=== PATIENT | male | born 1940 | race Caucasian/White ===

== ENCOUNTER → 2016-04-22 | Outpatient (CLI) | payer MEDICARE, OTHER | LOC: RAD 07:41 | PROVIDERS: ATTEND Specialist | DX: C61 Malignant neoplasm of prostate (principal) | CPT/HCPCS: 78306; A9503; Q9969 ==

== ENCOUNTER → 2016-04-25 | Outpatient (CLI) | payer MEDICARE, OTHER | LOC: RAD 07:57 | PROVIDERS: ATTEND Specialist | DX: C61 Malignant neoplasm of prostate (principal) | CPT/HCPCS: 71260; 74177 ==

== ENCOUNTER → 2016-07-24 | Outpatient (CLI) | payer MEDICARE, OTHER ==
[2016-07-24 11:14] LABS: ABSOLUTE EOSINOPHILS # (AUTO) 0.1 10^3/uL (0.0-0.6); ABSOLUTE LYMPHOCYTES (AUTO) 0.6 10^3/uL (0.5-4.7); ABSOLUTE MONOCYTES (AUTO) 0.8 10^3/uL (0.1-1.4); ABSOLUTE NEUT (AUTO) 3.4 10^3/uL (1.7-8.2); EOSINOPHILS % (AUTO) 2.6 % (0-6); HEMATOCRIT 39.9 % (37.9-51.0); HEMOGLOBIN 13.3 g/dL (13.5-17.0); LYMPHOCYTES % (AUTO) 12.1 % (13-45); MEAN CORPUSCULAR HGB CONC 33.4 g/dL (32.0-36.0); MEAN CORPUSCULAR VOLUME 90 fl (80-97); MONOCYTES % (AUTO) 15.3 % (3-13); RED BLOOD COUNT 4.44 10^6/uL (4.35-5.55); RED CELL DISTRIBUTION WIDTH 14.2 % (11.5-14.0); WHITE BLOOD COUNT 4.9 10^3/uL (4.0-10.5)
== END ==
LOC: OD 10:49
PROVIDERS: ATTEND Radiology Radiation Oncology
DX: C61 Malignant neoplasm of prostate (principal); C79.51 Secondary malignant neoplasm of bone; R97.20 Elevated prostate specific antigen [PSA]
CPT/HCPCS: 36415; 85025

== ENCOUNTER → 2016-07-31 | Outpatient (CLI) | payer MEDICARE, OTHER | LOC: RAD 08:05 | PROVIDERS: ATTEND Radiology Radiation Oncology | DX: C61 Malignant neoplasm of prostate (principal); C79.51 Secondary malignant neoplasm of bone | CPT/HCPCS: 79101; A9606 ==

== ENCOUNTER → 2016-08-07 | Outpatient (CLI) | payer MEDICARE, OTHER ==
[2016-08-07 15:02] LABS: ABSOLUTE EOSINOPHILS # (AUTO) 0.2 10^3/uL (0.0-0.6); ABSOLUTE LYMPHOCYTES (AUTO) 0.5 10^3/uL (0.5-4.7); ABSOLUTE MONOCYTES (AUTO) 0.6 10^3/uL (0.1-1.4); ABSOLUTE NEUT (AUTO) 3.8 10^3/uL (1.7-8.2); BASOPHILS % (AUTO) 0.5 % (0-2); EOSINOPHILS % (AUTO) 3.4 % (0-6); HEMATOCRIT 36.5 % (37.9-51.0); HEMOGLOBIN 12.2 g/dL (13.5-17.0); HGB HCT DIFFERENCE 0.1; LYMPHOCYTES % (AUTO) 10.1 % (13-45); MEAN CORPUSCULAR HEMOGLOBIN 30.1 pg (27.0-33.4); MEAN CORPUSCULAR HGB CONC 33.6 g/dL (32.0-36.0); MEAN CORPUSCULAR VOLUME 90 fl (80-97); RED BLOOD COUNT 4.06 10^6/uL (4.35-5.55); RED CELL DISTRIBUTION WIDTH 14.1 % (11.5-14.0); WHITE BLOOD COUNT 5.1 10^3/uL (4.0-10.5)
== END ==
LOC: OD 14:12
PROVIDERS: ATTEND Radiology Radiation Oncology
DX: C61 Malignant neoplasm of prostate (principal); R97.20 Elevated prostate specific antigen [PSA]; C79.51 Secondary malignant neoplasm of bone
CPT/HCPCS: 36415; 85025

== ENCOUNTER → 2016-08-21 | Outpatient (CLI) | payer MEDICARE, OTHER ==
[2016-08-21 13:30] LABS: ABSOLUTE BASOPHILS # (AUTO) 0.1 10^3/uL (0.0-0.2); ABSOLUTE EOSINOPHILS # (AUTO) 0.1 10^3/uL (0.0-0.6); ABSOLUTE LYMPHOCYTES (AUTO) 0.6 10^3/uL (0.5-4.7); ABSOLUTE MONOCYTES (AUTO) 0.6 10^3/uL (0.1-1.4); ABSOLUTE NEUT (AUTO) 2.9 10^3/uL (1.7-8.2); BASOPHILS % (AUTO) 1.2 % (0-2); HEMOGLOBIN 12.6 g/dL (13.5-17.0); HGB HCT DIFFERENCE 0.8; LYMPHOCYTES % (AUTO) 13.4 % (13-45); MEAN CORPUSCULAR HEMOGLOBIN 30.3 pg (27.0-33.4); MEAN CORPUSCULAR HGB CONC 34.1 g/dL (32.0-36.0); MEAN CORPUSCULAR VOLUME 89 fl (80-97); RED BLOOD COUNT 4.18 10^6/uL (4.35-5.55); SEGMENTED NEUTROPHILS % (AUTO) 67.4 % (42-78); WHITE BLOOD COUNT 4.2 10^3/uL (4.0-10.5)
== END ==
LOC: OD 12:18
PROVIDERS: ATTEND Radiology Radiation Oncology
DX: C61 Malignant neoplasm of prostate (principal); R97.20 Elevated prostate specific antigen [PSA]; C79.51 Secondary malignant neoplasm of bone
CPT/HCPCS: 36415; 85025

== ENCOUNTER → 2016-08-28 | Outpatient (CLI) | payer MEDICARE, OTHER | LOC: RAD 07:55 | PROVIDERS: ATTEND Radiology Radiation Oncology | DX: C79.51 Secondary malignant neoplasm of bone (principal); C61 Malignant neoplasm of prostate | CPT/HCPCS: 79101; A9606 ==

== ENCOUNTER → 2016-09-04 | Outpatient (CLI) | payer MEDICARE, OTHER ==
[2016-09-04 10:38] LABS: ABSOLUTE EOSINOPHILS # (AUTO) 0.1 10^3/uL (0.0-0.6); ABSOLUTE LYMPHOCYTES (AUTO) 0.5 10^3/uL (0.5-4.7); ABSOLUTE MONOCYTES (AUTO) 0.5 10^3/uL (0.1-1.4); ABSOLUTE NEUT (AUTO) 2.4 10^3/uL (1.7-8.2); BASOPHILS % (AUTO) 0.8 % (0-2); EOSINOPHILS % (AUTO) 3.7 % (0-6); HEMATOCRIT 39.5 % (37.9-51.0); HEMOGLOBIN 12.9 g/dL (13.5-17.0); HGB HCT DIFFERENCE -0.8; LYMPHOCYTES % (AUTO) 15.4 % (13-45); MEAN CORPUSCULAR HEMOGLOBIN 29.9 pg (27.0-33.4); MEAN CORPUSCULAR HGB CONC 32.8 g/dL (32.0-36.0); MEAN CORPUSCULAR VOLUME 91 fl (80-97); MONOCYTES % (AUTO) 13.3 % (3-13); RED BLOOD COUNT 4.33 10^6/uL (4.35-5.55); RED CELL DISTRIBUTION WIDTH 14.6 % (11.5-14.0); SEGMENTED NEUTROPHILS % (AUTO) 66.8 % (42-78); WHITE BLOOD COUNT 3.5 10^3/uL (4.0-10.5)
== END ==
LOC: OD 09:34
PROVIDERS: ATTEND Radiology Radiation Oncology
DX: C61 Malignant neoplasm of prostate (principal); C79.51 Secondary malignant neoplasm of bone; R97.20 Elevated prostate specific antigen [PSA]
CPT/HCPCS: 36415; 85025

== ENCOUNTER → 2016-09-18 | Outpatient (CLI) | payer MEDICARE, OTHER ==
[2016-09-18 11:18] LABS: ABSOLUTE BASOPHILS # (AUTO) 0.1 10^3/uL (0.0-0.2); ABSOLUTE EOSINOPHILS # (AUTO) 0.1 10^3/uL (0.0-0.6); ABSOLUTE LYMPHOCYTES (AUTO) 0.6 10^3/uL (0.5-4.7); ABSOLUTE MONOCYTES (AUTO) 0.5 10^3/uL (0.1-1.4); BASOPHILS % (AUTO) 1.2 % (0-2); EOSINOPHILS % (AUTO) 2.3 % (0-6); HEMATOCRIT 41.5 % (37.9-51.0); HEMOGLOBIN 13.8 g/dL (13.5-17.0); HGB HCT DIFFERENCE -0.1; LYMPHOCYTES % (AUTO) 13.7 % (13-45); MEAN CORPUSCULAR HEMOGLOBIN 30.2 pg (27.0-33.4); MEAN CORPUSCULAR HGB CONC 33.2 g/dL (32.0-36.0); MEAN CORPUSCULAR VOLUME 91 fl (80-97); MONOCYTES % (AUTO) 12.3 % (3-13); RED BLOOD COUNT 4.57 10^6/uL (4.35-5.55); RED CELL DISTRIBUTION WIDTH 14.3 % (11.5-14.0); SEGMENTED NEUTROPHILS % (AUTO) 70.5 % (42-78); WHITE BLOOD COUNT 4.3 10^3/uL (4.0-10.5)
== END ==
LOC: OD 09:59
PROVIDERS: ATTEND Radiology Radiation Oncology
DX: C61 Malignant neoplasm of prostate (principal); R97.20 Elevated prostate specific antigen [PSA]; C79.51 Secondary malignant neoplasm of bone
CPT/HCPCS: 36415; 85025

== ENCOUNTER → 2016-09-25 | Outpatient (CLI) | payer MEDICARE, OTHER | LOC: RAD 07:51 | PROVIDERS: ATTEND Radiology Radiation Oncology | DX: C79.51 Secondary malignant neoplasm of bone (principal); C61 Malignant neoplasm of prostate | CPT/HCPCS: 79101; A9606 ==

== ENCOUNTER → 2016-10-02 | Outpatient (CLI) | payer MEDICARE, OTHER ==
[2016-10-02 10:20] LABS: ABSOLUTE EOSINOPHILS # (AUTO) 0.1 10^3/uL (0.0-0.6); ABSOLUTE LYMPHOCYTES (AUTO) 0.5 10^3/uL (0.5-4.7); ABSOLUTE MONOCYTES (AUTO) 0.6 10^3/uL (0.1-1.4); ABSOLUTE NEUT (AUTO) 2.1 10^3/uL (1.7-8.2); EOSINOPHILS % (AUTO) 2.2 % (0-6); HEMATOCRIT 37.7 % (37.9-51.0); HEMOGLOBIN 12.3 g/dL (13.5-17.0); HGB HCT DIFFERENCE -0.8; LYMPHOCYTES % (AUTO) 16.4 % (13-45); MEAN CORPUSCULAR HGB CONC 32.7 g/dL (32.0-36.0); MEAN CORPUSCULAR VOLUME 92 fl (80-97); MONOCYTES % (AUTO) 16.8 % (3-13); RED BLOOD COUNT 4.11 10^6/uL (4.35-5.55); RED CELL DISTRIBUTION WIDTH 14.3 % (11.5-14.0); SEGMENTED NEUTROPHILS % (AUTO) 63.6 % (42-78); WHITE BLOOD COUNT 3.3 10^3/uL (4.0-10.5)
== END ==
LOC: OD 09:39
PROVIDERS: ATTEND Radiology Radiation Oncology
DX: C61 Malignant neoplasm of prostate (principal); R97.20 Elevated prostate specific antigen [PSA]; C79.51 Secondary malignant neoplasm of bone
CPT/HCPCS: 36415; 85025

== ENCOUNTER → 2016-10-09 | Outpatient (CLI) | payer MEDICARE, OTHER ==
[2016-10-09 09:26] LABS: ABSOLUTE EOSINOPHILS # (AUTO) 0.1 10^3/uL (0.0-0.6); ABSOLUTE LYMPHOCYTES (AUTO) 0.5 10^3/uL (0.5-4.7); ABSOLUTE MONOCYTES (AUTO) 0.5 10^3/uL (0.1-1.4); ABSOLUTE NEUT (AUTO) 1.9 10^3/uL (1.7-8.2); BASOPHILS % (AUTO) 1.3 % (0-2); EOSINOPHILS % (AUTO) 4.8 % (0-6); HEMATOCRIT 40.9 % (37.9-51.0); HEMOGLOBIN 13.5 g/dL (13.5-17.0); HGB HCT DIFFERENCE -0.4; MEAN CORPUSCULAR HEMOGLOBIN 30.4 pg (27.0-33.4); MEAN CORPUSCULAR HGB CONC 33.1 g/dL (32.0-36.0); MEAN CORPUSCULAR VOLUME 92 fl (80-97); RED BLOOD COUNT 4.44 10^6/uL (4.35-5.55); RED CELL DISTRIBUTION WIDTH 14.5 % (11.5-14.0); SEGMENTED NEUTROPHILS % (AUTO) 59.9 % (42-78); WHITE BLOOD COUNT 3.1 10^3/uL (4.0-10.5)
== END ==
LOC: OD 08:29
PROVIDERS: ATTEND Radiology Radiation Oncology
DX: C61 Malignant neoplasm of prostate (principal); R97.20 Elevated prostate specific antigen [PSA]; C79.51 Secondary malignant neoplasm of bone
CPT/HCPCS: 36415; 85025

== ENCOUNTER → 2016-10-16 | Outpatient (CLI) | payer MEDICARE, OTHER ==
[2016-10-16 09:42] LABS: ABSOLUTE EOSINOPHILS # (AUTO) 0.2 10^3/uL (0.0-0.6); ABSOLUTE LYMPHOCYTES (AUTO) 0.5 10^3/uL (0.5-4.7); ABSOLUTE MONOCYTES (AUTO) 0.6 10^3/uL (0.1-1.4); ABSOLUTE NEUT (AUTO) 2.8 10^3/uL (1.7-8.2); BASOPHILS % (AUTO) 1.2 % (0-2); EOSINOPHILS % (AUTO) 3.8 % (0-6); HEMATOCRIT 36.5 % (37.9-51.0); HEMOGLOBIN 12.5 g/dL (13.5-17.0); LYMPHOCYTES % (AUTO) 12.8 % (13-45); MEAN CORPUSCULAR HGB CONC 34.2 g/dL (32.0-36.0); MEAN CORPUSCULAR VOLUME 91 fl (80-97); MONOCYTES % (AUTO) 14.4 % (3-13); RED BLOOD COUNT 4.02 10^6/uL (4.35-5.55); RED CELL DISTRIBUTION WIDTH 14.6 % (11.5-14.0); SEGMENTED NEUTROPHILS % (AUTO) 67.8 % (42-78); WHITE BLOOD COUNT 4.2 10^3/uL (4.0-10.5)
== END ==
LOC: OD 08:48
PROVIDERS: ATTEND Radiology Radiation Oncology
DX: C61 Malignant neoplasm of prostate (principal); C79.51 Secondary malignant neoplasm of bone; R97.20 Elevated prostate specific antigen [PSA]
CPT/HCPCS: 36415; 85025

== ENCOUNTER → 2016-10-23 | Outpatient (CLI) | payer MEDICARE, OTHER | LOC: RAD 07:45 | PROVIDERS: ATTEND Radiology Radiation Oncology | DX: C79.51 Secondary malignant neoplasm of bone (principal); C61 Malignant neoplasm of prostate | CPT/HCPCS: 79101; A9606 ==

== ENCOUNTER → 2016-10-30 | Outpatient (CLI) | payer MEDICARE, OTHER ==
[2016-10-30 10:08] LABS: ABSOLUTE EOSINOPHILS # (AUTO) 0.2 10^3/uL (0.0-0.6); ABSOLUTE LYMPHOCYTES (AUTO) 0.6 10^3/uL (0.5-4.7); ABSOLUTE MONOCYTES (AUTO) 0.5 10^3/uL (0.1-1.4); ABSOLUTE NEUT (AUTO) 3.1 10^3/uL (1.7-8.2); EOSINOPHILS % (AUTO) 3.5 % (0-6); HEMATOCRIT 38.2 % (37.9-51.0); HEMOGLOBIN 12.6 g/dL (13.5-17.0); HGB HCT DIFFERENCE -0.4; LYMPHOCYTES % (AUTO) 12.9 % (13-45); MEAN CORPUSCULAR HEMOGLOBIN 30.5 pg (27.0-33.4); MEAN CORPUSCULAR HGB CONC 33.1 g/dL (32.0-36.0); MEAN CORPUSCULAR VOLUME 92 fl (80-97); MONOCYTES % (AUTO) 12.1 % (3-13); RED BLOOD COUNT 4.14 10^6/uL (4.35-5.55); RED CELL DISTRIBUTION WIDTH 14.8 % (11.5-14.0); SEGMENTED NEUTROPHILS % (AUTO) 70.5 % (42-78); WHITE BLOOD COUNT 4.5 10^3/uL (4.0-10.5)
== END ==
LOC: OD 09:13
PROVIDERS: ATTEND Radiology Radiation Oncology
DX: C61 Malignant neoplasm of prostate (principal); R97.20 Elevated prostate specific antigen [PSA]; C79.51 Secondary malignant neoplasm of bone
CPT/HCPCS: 36415; 85025

== ENCOUNTER → 2016-11-13 | Outpatient (CLI) | payer MEDICARE, OTHER ==
[2016-11-13 09:38] LABS: ABSOLUTE BASOPHILS # (AUTO) 0.1 10^3/uL (0.0-0.2); ABSOLUTE EOSINOPHILS # (AUTO) 0.1 10^3/uL (0.0-0.6); ABSOLUTE LYMPHOCYTES (AUTO) 0.6 10^3/uL (0.5-4.7); ABSOLUTE MONOCYTES (AUTO) 0.6 10^3/uL (0.1-1.4); ABSOLUTE NEUT (AUTO) 2.7 10^3/uL (1.7-8.2); BASOPHILS % (AUTO) 1.2 % (0-2); EOSINOPHILS % (AUTO) 3.1 % (0-6); HEMATOCRIT 35.7 % (37.9-51.0); HEMOGLOBIN 12.1 g/dL (13.5-17.0); HGB HCT DIFFERENCE 0.6; LYMPHOCYTES % (AUTO) 15.2 % (13-45); MEAN CORPUSCULAR HEMOGLOBIN 31.2 pg (27.0-33.4); MEAN CORPUSCULAR HGB CONC 33.8 g/dL (32.0-36.0); MEAN CORPUSCULAR VOLUME 93 fl (80-97); MONOCYTES % (AUTO) 15.1 % (3-13); RED BLOOD COUNT 3.87 10^6/uL (4.35-5.55); RED CELL DISTRIBUTION WIDTH 14.9 % (11.5-14.0); SEGMENTED NEUTROPHILS % (AUTO) 65.4 % (42-78); WHITE BLOOD COUNT 4.2 10^3/uL (4.0-10.5)
== END ==
LOC: OD 08:56
PROVIDERS: ATTEND Radiology Radiation Oncology
DX: C61 Malignant neoplasm of prostate (principal); R97.20 Elevated prostate specific antigen [PSA]; C79.51 Secondary malignant neoplasm of bone
CPT/HCPCS: 36415; 85025

== ENCOUNTER → 2016-11-20 | Outpatient (CLI) | payer MEDICARE, OTHER | LOC: RAD 07:56 | PROVIDERS: ATTEND Radiology Radiation Oncology | DX: C79.51 Secondary malignant neoplasm of bone (principal); C61 Malignant neoplasm of prostate | CPT/HCPCS: 79101; A9606 ==

== ENCOUNTER → 2016-11-27 | Outpatient (CLI) | payer MEDICARE, OTHER ==
[2016-11-27 10:41] LABS: ABSOLUTE EOSINOPHILS # (AUTO) 0.1 10^3/uL (0.0-0.6); ABSOLUTE LYMPHOCYTES (AUTO) 0.5 10^3/uL (0.5-4.7); ABSOLUTE MONOCYTES (AUTO) 0.6 10^3/uL (0.1-1.4); ABSOLUTE NEUT (AUTO) 2.9 10^3/uL (1.7-8.2); EOSINOPHILS % (AUTO) 2.3 % (0-6); HEMATOCRIT 35.9 % (37.9-51.0); HEMOGLOBIN 12.3 g/dL (13.5-17.0); LYMPHOCYTES % (AUTO) 12.9 % (13-45); MEAN CORPUSCULAR HEMOGLOBIN 31.8 pg (27.0-33.4); MEAN CORPUSCULAR HGB CONC 34.3 g/dL (32.0-36.0); MEAN CORPUSCULAR VOLUME 93 fl (80-97); MONOCYTES % (AUTO) 14.7 % (3-13); RED BLOOD COUNT 3.88 10^6/uL (4.35-5.55); SEGMENTED NEUTROPHILS % (AUTO) 69.1 % (42-78); WHITE BLOOD COUNT 4.2 10^3/uL (4.0-10.5)
== END ==
LOC: OD 09:33
PROVIDERS: ATTEND Radiology Radiation Oncology
DX: C61 Malignant neoplasm of prostate (principal); C79.51 Secondary malignant neoplasm of bone; R97.20 Elevated prostate specific antigen [PSA]
CPT/HCPCS: 36415; 85025

== ENCOUNTER → 2016-12-11 | Outpatient (CLI) | payer MEDICARE, OTHER ==
[2016-12-11 10:23] LABS: ABSOLUTE EOSINOPHILS # (AUTO) 0.1 10^3/uL (0.0-0.6); ABSOLUTE LYMPHOCYTES (AUTO) 0.3 10^3/uL (0.5-4.7); ABSOLUTE MONOCYTES (AUTO) 0.5 10^3/uL (0.1-1.4); ABSOLUTE NEUT (AUTO) 1.9 10^3/uL (1.7-8.2); BASOPHILS % (AUTO) 1.2 % (0-2); EOSINOPHILS % (AUTO) 3.6 % (0-6); HEMATOCRIT 36.4 % (37.9-51.0); HEMOGLOBIN 12.2 g/dL (13.5-17.0); HGB HCT DIFFERENCE 0.2; LYMPHOCYTES % (AUTO) 10.9 % (13-45); MEAN CORPUSCULAR HEMOGLOBIN 31.7 pg (27.0-33.4); MEAN CORPUSCULAR HGB CONC 33.6 g/dL (32.0-36.0); MEAN CORPUSCULAR VOLUME 94 fl (80-97); MONOCYTES % (AUTO) 17.2 % (3-13); RED BLOOD COUNT 3.86 10^6/uL (4.35-5.55); RED CELL DISTRIBUTION WIDTH 15.2 % (11.5-14.0); SEGMENTED NEUTROPHILS % (AUTO) 67.1 % (42-78); WHITE BLOOD COUNT 2.8 10^3/uL (4.0-10.5)
== END ==
LOC: OD 08:58
PROVIDERS: ATTEND Radiology Radiation Oncology
DX: C61 Malignant neoplasm of prostate (principal); C79.51 Secondary malignant neoplasm of bone; R97.20 Elevated prostate specific antigen [PSA]
CPT/HCPCS: 36415; 85025

== ENCOUNTER → 2016-12-18 | Outpatient (CLI) | payer MEDICARE, OTHER | LOC: RAD 07:47 | PROVIDERS: ATTEND Radiology Radiation Oncology | DX: C61 Malignant neoplasm of prostate (principal); C79.51 Secondary malignant neoplasm of bone | CPT/HCPCS: 79101; A9606 ==

== ENCOUNTER → 2016-12-25 | Outpatient (CLI) | payer MEDICARE, OTHER ==
[2016-12-25 11:15] LABS: ABSOLUTE EOSINOPHILS # (AUTO) 0.1 10^3/uL (0.0-0.6); ABSOLUTE LYMPHOCYTES (AUTO) 0.3 10^3/uL (0.5-4.7); ABSOLUTE MONOCYTES (AUTO) 0.5 10^3/uL (0.1-1.4); ABSOLUTE NEUT (AUTO) 2.5 10^3/uL (1.7-8.2); BASOPHILS % (AUTO) 0.7 % (0-2); EOSINOPHILS % (AUTO) 2.2 % (0-6); HEMATOCRIT 35.3 % (37.9-51.0); HEMOGLOBIN 11.8 g/dL (13.5-17.0); HGB HCT DIFFERENCE 0.1; LYMPHOCYTES % (AUTO) 9.6 % (13-45); MEAN CORPUSCULAR HEMOGLOBIN 31.6 pg (27.0-33.4); MEAN CORPUSCULAR HGB CONC 33.3 g/dL (32.0-36.0); MEAN CORPUSCULAR VOLUME 95 fl (80-97); MONOCYTES % (AUTO) 13.4 % (3-13); RED BLOOD COUNT 3.72 10^6/uL (4.35-5.55); RED CELL DISTRIBUTION WIDTH 14.8 % (11.5-14.0); SEGMENTED NEUTROPHILS % (AUTO) 74.1 % (42-78); WHITE BLOOD COUNT 3.4 10^3/uL (4.0-10.5)
== END ==
LOC: OD 09:49
PROVIDERS: ATTEND Radiology Radiation Oncology
DX: C61 Malignant neoplasm of prostate (principal); C79.51 Secondary malignant neoplasm of bone; R97.20 Elevated prostate specific antigen [PSA]
CPT/HCPCS: 36415; 85025

== ENCOUNTER → 2017-01-08 | Outpatient (CLI) | payer MEDICARE, OTHER ==
[2017-01-08 10:21] LABS: ABSOLUTE EOSINOPHILS # (AUTO) 0.1 10^3/uL (0.0-0.6); ABSOLUTE LYMPHOCYTES (AUTO) 0.4 10^3/uL (0.5-4.7); ABSOLUTE MONOCYTES (AUTO) 0.5 10^3/uL (0.1-1.4); ABSOLUTE NEUT (AUTO) 2.3 10^3/uL (1.7-8.2); BASOPHILS % (AUTO) 0.9 % (0-2); EOSINOPHILS % (AUTO) 2.5 % (0-6); HEMATOCRIT 36.7 % (37.9-51.0); HEMOGLOBIN 12.4 g/dL (13.5-17.0); HGB HCT DIFFERENCE 0.5; LYMPHOCYTES % (AUTO) 12.2 % (13-45); MEAN CORPUSCULAR HEMOGLOBIN 31.5 pg (27.0-33.4); MEAN CORPUSCULAR HGB CONC 33.9 g/dL (32.0-36.0); MEAN CORPUSCULAR VOLUME 93 fl (80-97); MONOCYTES % (AUTO) 14.8 % (3-13); RED BLOOD COUNT 3.95 10^6/uL (4.35-5.55); RED CELL DISTRIBUTION WIDTH 14.1 % (11.5-14.0); SEGMENTED NEUTROPHILS % (AUTO) 69.6 % (42-78); WHITE BLOOD COUNT 3.3 10^3/uL (4.0-10.5)
== END ==
LOC: OD 09:40
PROVIDERS: ATTEND Radiology Radiation Oncology
DX: C61 Malignant neoplasm of prostate (principal); C79.51 Secondary malignant neoplasm of bone; R97.20 Elevated prostate specific antigen [PSA]
CPT/HCPCS: 36415; 85025

== ENCOUNTER → 2017-01-22 | Outpatient (CLI) | payer MEDICARE, OTHER ==
[2017-01-22 15:37] LABS: ABSOLUTE LYMPHOCYTES (AUTO) 0.3 10^3/uL (0.5-4.7); ABSOLUTE MONOCYTES (AUTO) 0.4 10^3/uL (0.1-1.4); ABSOLUTE NEUT (AUTO) 2.7 10^3/uL (1.7-8.2); EOSINOPHILS % (AUTO) 1.4 % (0-6); HEMATOCRIT 34.1 % (37.9-51.0); HGB HCT DIFFERENCE 1.9; LYMPHOCYTES % (AUTO) 7.7 % (13-45); MEAN CORPUSCULAR HEMOGLOBIN 32.7 pg (27.0-33.4); MEAN CORPUSCULAR HGB CONC 35.2 g/dL (32.0-36.0); MEAN CORPUSCULAR VOLUME 93 fl (80-97); MONOCYTES % (AUTO) 10.8 % (3-13); RED BLOOD COUNT 3.67 10^6/uL (4.35-5.55); RED CELL DISTRIBUTION WIDTH 14.1 % (11.5-14.0); SEGMENTED NEUTROPHILS % (AUTO) 79.1 % (42-78); WHITE BLOOD COUNT 3.4 10^3/uL (4.0-10.5)
== END ==
LOC: OD 14:06
PROVIDERS: ATTEND Radiology Radiation Oncology
DX: C61 Malignant neoplasm of prostate (principal); R97.20 Elevated prostate specific antigen [PSA]; C79.51 Secondary malignant neoplasm of bone
CPT/HCPCS: 36415; 85025

== ENCOUNTER → 2017-02-05 | Outpatient (CLI) | payer MEDICARE, OTHER ==
--- NOTE | 2017-02-05 14:39 | RADIOLOGY REPORT (SQ) ---
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 Images reviewed with lung, soft tissue and bone windows. Reconstructed coronal a nd sagittal MPR images reviewed. All images stored on PACS. CT scan of the abdomen and pelvis performed with intravenous and with oral contrastusing helical scan norah technique with dynamic intravenous contrast injection. Images reviewed with lung, soft tissue a nd bone windows. Reconstructed coronal and sagittal MPR images reviewed. Delayed images for evaluat ion of the urinary system also acquired and evaluated. All images stored on PACS. All CT scanners at this facility use dose modulation, iterative reconstruction, and/or weight based d osing when appropriate to reduce radiation dose to as low as reasonably achievable (ALARA). [facility]: Dose Right [facility]: CareDose [facility]: Dose Right [facility]: Teradose 4D [facility]: [employer] RADIATION DOSE: Up-to-date CT equipment and radiation dose reduction techniques were employed. CTDIv ol: 11.9 - 15.6 mGy. DLP: 2274 mGy-cm. . LIMITATIONS: None. FINDINGS: CHEST: LUNGS AND PLEURA: No opacities, nodules, masses. No pneumothorax. No effusions. HILAR AND MEDIASTINAL STRUCTURES: No identified masses or abnormal nodes. HEART AND VASCULAR STRUCTURES: No aneurysm or dissection. No central pulmonary emboli. No pericardi al effusion. HARDWARE: None. THYROID AND OTHER SOFT TISSUES: No masses. No adenopathy. BONES: There is new bony sclerosis in the T3 vertebral body worrisome for metastatic disease. Stable small sclerotic lesion posterior right 8th rib less than 1 cm in size. OTHER: No other significant finding. ABDOMEN AND PELVIS: LIVER: Normal size. No masses. No dilated ducts. SPLEEN: Normal size. No focal lesions. PANCREAS: No masses. No significant calcifications. No adjacent inflammation or peripancreatic fluid collections. Pancreatic duct not dilated. GALLBLADDER: No identified stones by CT criteria. No inflammatory changes to suggest cholecystitis. ADRENAL GLANDS: No significant masses or asymmetry. RIGHT KIDNEY AND URETER: No solid masses. No significant calcification. No hydronephrosis or hydroure ter. LEFT KIDNEY AND URETER: No solid masses. No significant calcification. No hydronephrosis or hydrouret er. AORTA AND VESSELS: No aneurysm. No dissection. Renal arteries, SMA, celiac without stenosis. RETROPERITONEUM: There is new adenopathy in the para-aortic and aortocaval region with multiple subce ntimeter lymph nodes on axial image 47. BOWEL AND PERITONEAL CAVITY: No masses or inflammatory changes. No free fluid or peritoneal masses. APPENDIX: Normal. ABDOMINAL WALL: No masses. No hernias. BONES: There is new bony sclerosis in the L3 and L4 vertebral bodies worrisome for metastatic disease OTHER: No other significant finding. IMPRESSION: New bony metastatic lesions in T3, L3, and L4 New retroperitoneal lymph nodes worrisome for metastatic disease TECHNICAL DOCUMENTATION: JOB ID: [id number] Quality ID # 436: Final reports with documentation of one or more dose reduction techniques (e.g., Au tomated exposure control, adjustment of the mA and/or kV according to patient size, use of iterative reconstruction technique) 2010 [employer]- All Rights Reserved
== END ==
LOC: RAD 12:56
PROVIDERS: ATTEND Internal Medicine Hematology & Oncology
DX: C61 Malignant neoplasm of prostate (principal)
CPT/HCPCS: 71260; 74177

== ENCOUNTER → 2017-02-10 | Outpatient (CLI) | payer MEDICARE, OTHER ==
--- NOTE | 2017-02-10 14:37 | RADIOLOGY REPORT (SQ) ---
EXAM DESCRIPTION: NM WHOLE BODY BONE SCAN COMPLETED DATE/TIME: 02/10/2017 12:05 pm REASON FOR STUDY: PROSTATE CA (C61 C61 MALIGNANT NEOPLASM OF PROSTATE COMPARISON: CT chest abdomen pelvis 02/05/2017 Whole-body bone scan 04/22/2016 RADIONUCLIDE AND DOSE: 22 millicuries Tc99m MDP. The route of agent administration: Intravenous. ADDITIONAL DRUGS AND DOSES: None. TECHNIQUE: Routine delayed images at 3 hours post radionuclide injection acquired of the bony skelet on including anterior and posterior whole-body projections and additional focused images as needed. LIMITATIONS: None. FINDINGS: BONES: Multiple all bilateral rib, thoracic, and lumbar spine lesions, bilateral proximal femoral diaphyses, right midshaft humerus lesions are present from bony metastatic disease. Mild increased uptake in the medial compartment and patellofemoral compartment left knee. The KIDNEYS: Symmetric excretion without obstruction. OTHER: No other significant finding. IMPRESSION: Diffuse bony metastatic disease COMMENT: Quality measure 147: Current bone scan is compared with any available plain radiographs, p rior bone scans, and CT/MRI. TECHNICAL DOCUMENTATION: JOB ID: [id number]- All Rights Reserved
== END ==
LOC: RAD 07:53
PROVIDERS: ATTEND Internal Medicine Hematology & Oncology
DX: C61 Malignant neoplasm of prostate (principal); C79.51 Secondary malignant neoplasm of bone
CPT/HCPCS: 78306; A9561; Q9969

== ENCOUNTER → 2017-05-25 | Outpatient (CLI) | payer MEDICARE, OTHER ==
--- NOTE | 2017-05-25 10:34 | RADIOLOGY REPORT (SQ) ---
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 Patient drank oral contrast. Images reviewed with lung, soft tissue , and bone windows. Reconstructed coronal and sagittal MPR images reviewed. Delayed images for evalua tion of the urinary system also acquired. All images stored on PACS. All CT scanners at this facility use dose modulation, iterative reconstruction, and/or weight based d osing when appropriate to reduce radiation dose to as low as reasonably achievable (ALARA). [facility]: Dose Right [facility]: CareDose [facility]: Dose Right [facility]: Teradose 4D [facility]: [employer] CONTRAST TYPE AND DOSE: contrast/concentration: Isovue 370.00 mg/ml; Total Contrast Delivered: 100.0 ml; Total Saline Delivered: 72.0 ml RENAL FUNCTION: Creatinine 0.8 RADIATION DOSE: CT Rad equipment meets quality standard of care and radiation dose reduction techniq ues were employed. CTDIvol: 9.5 - 12.2 mGy. DLP: 1734 mGy-cm.. LIMITATIONS: None. FINDINGS: LOWER CHEST: No significant findings. No nodules or infiltrates. LIVER: Normal size. No masses. No dilated ducts. SPLEEN: Normal size. No focal lesions. PANCREAS: No masses. No significant calcifications. No adjacent inflammation or peripancreatic fluid collections. Pancreatic duct not dilated. GALLBLADDER: No identified stones by CT criteria. No inflammatory changes to suggest cholecystitis. ADRENAL GLANDS: No significant masses or asymmetry. RIGHT KIDNEY AND URETER: No solid masses. No significant calcifications. No hydronephrosis or hyd roureter. LEFT KIDNEY AND URETER: No solid masses. No significant calcifications. No hydronephrosis or hydr oureter. AORTA AND VESSELS: No aneurysm. No dissection. Renal arteries, SMA, celiac without stenosis. RETROPERITONEUM: No retroperitoneal adenopathy, hemorrhage or masses. BOWEL AND PERITONEAL CAVITY: No masses or inflammatory changes. No free fluid or peritoneal masses. Patient drank oral contrast. No evidence of bowel obstruction. Colonic diverticuli along the descen ding and sigmoid colon without CT signs of acute diverticulitis. APPENDIX: Normal. PELVIS: No mass. No free fluid. Normal bladder. Clips post prostatectomy ABDOMINAL WALL: No masses. No hernias. BONES: Diffuse bony metastatic disease correlates with bone scan 02/10/2017 OTHER: No other significant finding. IMPRESSION: Prostatectomy. Diffuse bony metastatic lesions. TECHNICAL DOCUMENTATION: JOB ID: [id number] Quality ID # 436: Final reports with documentation of one or more dose reduction techniques (e.g., Au tomated exposure control, adjustment of the mA and/or kV according to patient size, use of iterative reconstruction technique) 2010 [employer]- All Rights Reserved
--- NOTE | 2017-05-25 11:16 | RADIOLOGY REPORT (SQ) ---
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 Images reviewed with lung, soft tissue and bone windows. Reconstructed coronal and sagittal MPR images reviewed. All images stored on PACS. All CT scanners at this facility use dose modulation, iterative reconstruction, and/or weight based d osing when appropriate to reduce radiation dose to as low as reasonably achievable (ALARA). [facility]: Dose Right [facility]: CareDose [facility]: Dose Right [facility]: Teradose 4D [facility]: [employer] CONTRAST TYPE AND DOSE: 100 cc of Isovue 370 RENAL FUNCTION: Creatinine 0.8 RADIATION DOSE: Total exam DLP: 1734.37 PCM9slv--1.49 LIMITATIONS: None. FINDINGS: LUNGS AND PLEURA: Centrilobular emphysematous changes in the lungs, more so in the upper 2/3's of the lungs. Since the previous examination, new patchy, fairly extensive ground-glass attenu ated areas in the lungs, more pronounced in the upper 2/3's of the lungs. Considerations for these f indings include pneumonias, hypersensitivity pneumonitis, alveolitis, interstitial lung disease. No pneumothorax or pleural effusion. HILAR AND MEDIASTINAL STRUCTURES: No significant interval changes. HEART AND VASCULAR STRUCTURES: No aneurysm or dissection. No central pulmonary emboli. No pericardi al effusion. HARDWARE: None in the chest. UPPER ABDOMEN: Please see CT abdomen report. THYROID AND OTHER SOFT TISSUES: No masses. No adenopathy. BONES: Multiple new sclerotic and osseous lytic lesions involve the ribs, sternum, visualized scapul ae, humeri and thoracic spine. No acute fracture. OTHER: Small stable hiatal hernia. IMPRESSION: 1 Since the previous examination dated 02/05/2017, new patchy, fairly extensive ground-g lass attenuated areas in the lungs, more pronounced in the upper 2/3's of the lungs. Considerations for these findings include pneumonias, hypersensitivity pneumonitis, alveolitis, interstitial lung di sease. Correlation is suggested. 2. Multiple new sclerotic and lytic osseous lesions involve the chest/thorax. TECHNICAL DOCUMENTATION: JOB ID: [id number] Quality ID # [id number]: Final reports with documentation of one or more dose reduction techniques (e.g., Au tomated exposure control, adjustment of the mA and/or kV according to patient size, use of iterative reconstruction technique) 2010 [employer]- All Rights Reserved
== END ==
LOC: RAD 07:48
PROVIDERS: ATTEND Internal Medicine Hematology & Oncology
DX: C61 Malignant neoplasm of prostate (principal); C79.51 Secondary malignant neoplasm of bone
CPT/HCPCS: 71260; 74177

== ENCOUNTER 2017-07-16 10:47 | Outpatient (CLI) | payer MEDICARE, OTHER ==
[2017-07-16 11:28] LABS: HEMATOCRIT 25.7 % (37.9-51.0); HEMOGLOBIN 8.4 g/dL (13.5-17.0); MEAN CORPUSCULAR HEMOGLOBIN 28.7 pg (27.0-33.4); MEAN CORPUSCULAR HGB CONC 32.6 g/dL (32.0-36.0); MEAN CORPUSCULAR VOLUME 88 fl (80-97); PLATELET COUNT 111 10^3/uL (150-450); RED BLOOD COUNT 2.91 10^6/uL (4.35-5.55); RED CELL DISTRIBUTION WIDTH 17.8 % (11.5-14.0); WHITE BLOOD COUNT 9.1 10^3/uL (4.0-10.5)
[2017-07-16] MEDS ORDERED: DIPHENHYDRAMINE HCL 25 MG CAPSULE ONE (13:03)
[2017-07-16] MEDS ORDERED: ACETAMINOPHEN 325 MG TABLET ONE (13:04)
[2017-07-16] MEDS ORDERED: NORMAL SALINE 250 ML IV PRN (13:19)
[2017-07-16] MEDS ORDERED: FUROSEMIDE INJ/PF 20 MG/2 ML SDV IV PRN (13:20)
[2017-07-16 15:19] VITALS: BP 125/62
== END 2017-07-16 15:23 | disposition home or self-care (01) ==
LOC: II 10:47 → 5TH 11:22 → II 15:23
PROVIDERS: ATTEND Internal Medicine Hematology & Oncology
PROC: 30233N1 Transfusion of Nonautologous Red Blood Cells into Peripheral Vein, Percutaneous Approach (ICD-10-PCS; principal; 2017-07-16)
DX: D64.81 Anemia due to antineoplastic chemotherapy (principal); C61 Malignant neoplasm of prostate
CPT/HCPCS: 86900; 86901; 36415; 36430; 86850; 86920; P9016; A9270 ×2

== ENCOUNTER 2017-07-16 21:03 | Inpatient (IN) | payer MEDICARE, OTHER ==
[2017-07-16] MEDS ORDERED: ACETAMINOPHEN 325 MG TABLET PO ONE (21:13)
[2017-07-16] MEDS ORDERED: NORMAL SALINE 500 ML IV ONE (22:13)
[2017-07-16] MEDS ORDERED: ONDANSETRON HCL INJ/PF 4 MG/2 ML SDV IV ONE (22:14)
--- NOTE | 2017-07-16 22:26 | ER Document Report ---
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 He is followed by Dr. schwarz. Patient is currently chemotherapy that he gets once every 3 weeks. He last received yesterday. His hemoglobin was 8.3 and therefore he had a blood transfusion today. Blood transfusion was from about 2 to 3:30. He had no comp occasions during the blood transfusion. He has been coughing last several days. Tonight he developed a fever and arrived to the hospital little bit hypoxic with fever. Says he has some chronic nausea and vomiting because of the chemotherapy. This is unchanged. He has chronic back pain as well due to the cancer. This is unchanged. No new abdominal pain. No chest pain. No dysuria. No other complaints at this time. He says he typically does not get fevers with the chemotherapy. His white blood cell count on today's blood work was 9. TRAVEL OUTSIDE OF THE [place] IN LAST 30 DAYS: No - Related Data Allergies/Adverse Reactions: No Known Allergies Allergy (Unverified 07/16/17 11:34) Past Medical History - Social History Smoking Status: Former Smoker Chew tobacco use (# tins/day): No Frequency of alcohol use: None Drug Abuse: None Family History: Reviewed & Not Pertinent Patient has suicidal ideation: No Patient has homicidal ideation: No - Past Medical History Cardiac Medical History: Denies: Hx Congestive Heart Failure, Hx Heart Attack, Hx Hypertension Pulmonary Medical History: Reports: Hx COPD Denies: Hx Asthma, Hx Bronchitis, Hx Pneumonia, Hx Tuberculosis Neurological Medical History: Denies: Hx Seizures Renal/ Medical History: Denies: Hx Benign Prostatic Hyperplasia, Hx End Stage Renal Disease, Hx Kidney Stones, Hx Peritoneal Dialysis GI Medical History: Denies: Hx Cirrhosis, Hx Gastroesophageal Reflux Disease, Hx Ulcer Musculoskeltal Medical History: Denies Hx Arthritis, Denies Hx Multiple Sclerosis Psychiatric Medical History: Denies: Hx Bipolar Disorder, Hx Depression, Hx Schizophrenia - Immunizations Hx Pneumococcal Vaccination: 04/20/15 Review of Systems - Review of Systems Notes: My Normal Review Basic REVIEW OF SYSTEMS: CONSTITUTIONAL : Fever EENT: Denies eye, ear, throat, or mouth pain or symptoms. Denies nasal or sinus congestion. CARDIOVASCULAR: Denies chest pain. RESPIRATORY: Cough GASTROINTESTINAL: Denies abdominal pain. Denies nausea, vomiting, or diarrhea. GENITOURINARY: Denies difficulty urinating, painful urination, burning, frequency, or blood in urine. MUSCULOSKELETAL: Denies neck or back pain or joint pain or swelling. SKIN: Denies rash or skin lesions. NEUROLOGICAL: Denies altered mental status or loss of consciousness. Denies headache. Denies weakness or paralysis or loss of use of either side. Denies problems with gait or speech. Denies sensory or motor loss. ALL OTHER SYSTEMS REVIEWED AND NEGATIVE. Physical Exam - Vital signs Vitals: Temp Pulse Resp BP Pulse Ox 101.1 F H 110 H 22 H 114/78 78 L 07/16/17 21:11 07/16/17 21:11 07/16/17 21:11 07/16/17 21:11 07/16/17 21:11 - Notes Notes: General Appearance: Well nourished, alert, cooperative, no acute distress, no obvious discomfort. Not septic or toxic appearing. Vitals: reviewed, See vital signs table. Head: no swelling or tenderness to the head Eyes: PERRL, EOMI, Conjuctiva clear Mouth: No decreasd moisture Throat: No tonsillar inflammation, No airway obstruction, No lymphadenopathy Lungs: No wheezing, No rales, No rhonci, No accessory muscle use, good air exchange bilaterally. Heart: Tachycardic rate, Regular rythm, No murmur, no rub Abdomen: Normal BS, soft, No rigidity, No abdominal tenderness, No guarding, no rebound, no abdominal masses, no organomegaly Extremities: strength 5/5 in all extremities, good pulses in all extremities, no swelling or tenderness in the extremities, no edema. Skin: warm, dry, appropriate color, no rash Neuro: speech clear, oriented x 3, normal affect, responds appropriately to questions. Course - Re-evaluation Re-evalutation: 07/16/17 22:48 Patient's x-ray shows evidence what I suspect is probably some bilateral pneumonia. He did have a CT scan which does show that he has some chronic scarring in his lungs back in May however x-ray seems to be more extensive. I suspect that he is developing pneumonia being that he does have further infiltrative process on x-ray in combination with fever and hypoxemia. He has been coming in and out of the hospital to receive chemotherapy as well as blood transfusion and therefore I will treat him as a facility acquired pneumonia. I am waiting for the rest of his labs come back to call Dr. Arteaga, his primary care physician, for admission. 07/16/17 23:[address] Arteaga, patient's primary care physician, who agrees to admit the patient. I suspect that this most likely is pneumonia being that he has fever and hypoxemia. His tachycardia improved with treatment of the fever. Being he is requiring some supplemental oxygen I feel is appropriate to admit him. Dictation of this chart was performed using voice recognition software; therefore, there may be some unintended grammatical errors. - Vital Signs Vital signs: Temp Pulse Resp BP Pulse Ox 101.1 F H 110 H 25 H 133/73 H 96 07/16/17 21:11 07/16/17 21:11 07/16/17 22:37 07/16/17 22:37 07/16/17 22:37 - Laboratory Result Diagrams: 07/16/17 22:25 07/16/17 22:25 Laboratory results interpreted by me: 07/16/17 07/16/17 22:25 22:25 RBC 3.15 L Hgb 9.0 L Hct 27.4 L RDW 17.5 H Plt Count 91 L Seg Neuts % (Manual) 93 H Lymphocytes % (Manual) 4 L Abs Lymphs (Manual) 0.2 L Glucose 130 H Calcium 8.3 L Total Protein 4.9 L Albumin 2.8 L Discharge - Discharge Clinical Impression: Pneumonia Qualifiers: Pneumonia type: due to unspecified organism Laterality: bilateral Lung location : unspecified part of lung Qualified Code(s): J18.9 - Pneumonia, unspecified organism Condition: Stable Disposition: ADMITTED INPATIENT Admitting Provider: [facility]ol[facility] Unit Admitted: [facility] Referrals: AMI ARTEAGA MD [Primary Care Provider] - Follow up as needed
[2017-07-16 22:38] LABS: HEMATOCRIT 27.4 % (37.9-51.0); MEAN CORPUSCULAR HEMOGLOBIN 28.7 pg (27.0-33.4); MEAN CORPUSCULAR HGB CONC 32.9 g/dL (32.0-36.0); MEAN CORPUSCULAR VOLUME 87 fl (80-97); RED BLOOD COUNT 3.15 10^6/uL (4.35-5.55); RED CELL DISTRIBUTION WIDTH 17.5 % (11.5-14.0); WHITE BLOOD COUNT 5.4 10^3/uL (4.0-10.5)
--- NOTE | 2017-07-16 22:42 | RADIOLOGY REPORT (SQ) ---
EXAM DESCRIPTION: CHEST SINGLE VIEW COMPLETED DATE/TIME: 07/16/2017 10:30 pm REASON FOR STUDY: fever COMPARISON: CT 05/25/2017 EXAM PARAMETERS: NUMBER OF VIEWS: One view. TECHNIQUE: Single frontal radiographic view of the chest acquired. RADIATION DOSE: NA LIMITATIONS: None. FINDINGS: LUNGS AND PLEURA: Extensive bilateral opacification is seen. MEDIASTINUM AND HILAR STRUCTURES: No masses. Contour normal. HEART AND VASCULAR STRUCTURES: Cardiac silhouette is enlarged. No jose g CHF. BONES: No acute findings. HARDWARE: None in the chest. OTHER: No other significant finding. IMPRESSION: Cardiomegaly with no acute CHF. Bilateral pneumonia versus chronic interstitial change. TECHNICAL DOCUMENTATION: JOB ID: [id number] [employer]- All Rights Reserved Reading location - IP/workstation name: [email or web address]
[2017-07-16] MEDS ORDERED: VANCOMYCIN HCL INJ 1000 MG VIAL IV ONE (22:47)
[2017-07-16] MEDS ORDERED: PIPERACILLIN/TAZOBACTAM 4.5 GM VIAL IV ONE (22:47)
[2017-07-16 22:53] LABS: ALANINE AMINOTRANSFERASE 55 U/L (21-72); ALBUMIN 2.8 g/dL (3.5-5.0); ALKALINE PHOSPHATASE 94 U/L (38-126); ANION GAP 6 (5-19); ASPARTATE AMINO TRANSFERASE 37 U/L (17-59); BILIRUBIN,DIRECT 0.2 mg/dL (0.0-0.4); BILIRUBIN,TOTAL 0.8 mg/dL (0.2-1.3); BLOOD UREA NITROGEN 15 mg/dL (7-20); CALCIUM 8.3 mg/dL (8.4-10.2); CARBON DIOXIDE 28 mmol/L (22-30); CHLORIDE 105 mmol/L (98-107); GLUCOSE 130 mg/dL (75-110); POTASSIUM 3.9 mmol/L (3.6-5.0); SODIUM 138.8 mmol/L (137-145); TOTAL PROTEIN 4.9 g/dL (6.3-8.2)
[2017-07-16 22:58] LABS: PLATELET COUNT 91 10^3/uL (150-450)
[2017-07-16 23:02] LABS: ABSOLUTE LYMPHOCYTES# (MANUAL) 0.2 10^3/uL (0.5-4.7); ABSOLUTE MONOCYTES # (MANUAL) 0.2 10^3/uL (0.1-1.4); ANISOCYTOSIS 1+; BASOPHILS % (MANUAL) 0 % (0-2); EOSINOPHILS % (MANUAL) 0 % (0-6); LYMPHOCYTES % (MANUAL) 4 % (13-45); MONOCYTES % (MANUAL) 3 % (3-13); SEGMENTED NEUTROPHILS % (MAN) 93 % (42-78); TOTAL CELLS COUNTED 100; TOXIC GRANULATION SLIGHT
[2017-07-16 23:03] LABS: PLATELET COMMENT DECREASED; POIKILOCYTOSIS SLIGHT
[2017-07-16] MEDS ORDERED: NORMAL SALINE 1000 ML 1,000 ML IV PRN (23:26)
[2017-07-17] MEDS: IPRATROPIUM/ALBUTEROL 0.5-2.5 MG/3 ML AMPUL NEB SCH ×4 (03:49→21:38)
[2017-07-17] MEDS: ACETAMINOPHEN 325 MG TABLET PO PRN ×2 (04:05→11:45)
[2017-07-17] MEDS ORDERED: CEFEPIME 2 GM/D5W RTU 2 GM/50 ML RTUPB IV ONE (05:30)
[2017-07-17] MEDS: CEFEPIME 2 GM/D5W RTU 2 GM/50 ML RTUPB IV SCH ×2 (05:55→16:15)
[2017-07-17] MEDS ORDERED: HEPARIN SOD (PORCINE) 5,000 UNIT/ML 1 ML SYRINGE SUBCUT SCH (06:00)
[2017-07-17 06:12] LABS: APPEARANCE,URINE CLEAR; BILIRUBIN,URINE NEGATIVE (NEGATIVE); COLOR,URINE YELLOW; GLUCOSE, URINE NEGATIVE (NEGATIVE)
[2017-07-17 06:13] LABS: KETONES,URINE NEGATIVE (NEGATIVE); LEUKOCYTE ESTERASE,URINE NEGATIVE (NEGATIVE); NITRITE,URINE NEGATIVE (NEGATIVE); PROTEIN,URINE 30 mg/dL (NEGATIVE); URINE SPECIFIC GRAVITY 1.025
[2017-07-17 06:18] LABS: HEMATOCRIT 25.3 % (37.9-51.0); HEMOGLOBIN 8.5 g/dL (13.5-17.0); MEAN CORPUSCULAR HEMOGLOBIN 29.1 pg (27.0-33.4); MEAN CORPUSCULAR HGB CONC 33.5 g/dL (32.0-36.0); MEAN CORPUSCULAR VOLUME 87 fl (80-97); RED BLOOD COUNT 2.92 10^6/uL (4.35-5.55); RED CELL DISTRIBUTION WIDTH 17.3 % (11.5-14.0)
[2017-07-17 06:28] LABS: ALANINE AMINOTRANSFERASE 53 U/L (21-72); ALBUMIN 2.5 g/dL (3.5-5.0); ALKALINE PHOSPHATASE 86 U/L (38-126); ANION GAP 5 (5-19); ASPARTATE AMINO TRANSFERASE 35 U/L (17-59); BILIRUBIN,DIRECT 0.2 mg/dL (0.0-0.4); BILIRUBIN,TOTAL 0.8 mg/dL (0.2-1.3); BLOOD UREA NITROGEN 13 mg/dL (7-20); CALCIUM 7.9 mg/dL (8.4-10.2); CARBON DIOXIDE 25 mmol/L (22-30); CHLORIDE 107 mmol/L (98-107); GLUCOSE 117 mg/dL (75-110); POTASSIUM 3.9 mmol/L (3.6-5.0); SODIUM 137.4 mmol/L (137-145); TOTAL PROTEIN 4.6 g/dL (6.3-8.2)
[2017-07-17 06:51] LABS: PLATELET COUNT 69 10^3/uL (150-450)
[2017-07-17 07:02] LABS: ABSOLUTE LYMPHOCYTES# (MANUAL) 0.1 10^3/uL (0.5-4.7); ABSOLUTE MONOCYTES # (MANUAL) 0.1 10^3/uL (0.1-1.4); ABSOLUTE NEUTROPHILS# (MANUAL) 2.8 10^3/uL (1.7-8.2); BAND NEUTROPHILS % (MANUAL) 6 % (3-5); BASOPHILS % (MANUAL) 0 % (0-2); EOSINOPHILS % (MANUAL) 1 % (0-6); LYMPHOCYTES % (MANUAL) 3 % (13-45); MONOCYTES % (MANUAL) 2 % (3-13); SEGMENTED NEUTROPHILS % (MAN) 88 % (42-78); TOTAL CELLS COUNTED 100
[2017-07-17 07:04] LABS: OVALOCYTES SLIGHT; POIKILOCYTOSIS SLIGHT; POLYCHROMASIA SLIGHT; TOXIC GRANULATION SLIGHT
[2017-07-17 07:05] LABS: ANISOCYTOSIS 1+; PLATELET COMMENT DECREASED
[2017-07-17] MEDS: LEVOFLOXACIN 500 MG/D5W RTU 500 MG/100 ML RTUPB IV SCH (07:51)
[2017-07-17] MEDS: GUAIFENESIN 600 MG TABLET.SA PO SCH (09:01)
[2017-07-17] MEDS: FAMOTIDINE INJ/PF 20 MG/2 ML SDV IV SCH (09:01)
[2017-07-17] MEDS: MULTIVITAMIN TABLET PO SCH (09:02)
[2017-07-17] MEDS ORDERED: FUROSEMIDE 20 MG TABLET PO ONE (09:59)
[2017-07-17] MEDS ORDERED: ASPIRIN 81 MG TABLET, CHEWABLE PO SCH (10:00)
--- NOTE | 2017-07-17 10:17 | PDOC H&P ---
History of Present Illness Admission Date/PCP: 07/16/17 23:31 AMI ARTEAGA MD Patient complains of: Shortness of the breath and fever History of Present Illness: RAMIN JUNIOR is a 76 year old male This is a 76-year-old male with the history of the prostate cancers currently follow oncology with Dr sánchez And currently on chemotherapy with the 3 dose of the chemo was given Toradol the last was on a Thursday and the patient started feeling very weak and patient's appetite is very poor and patient started developing the shortness of the breath According to the patient and the patient was some allergy symptoms last week and since last 3 4 days patient's noticed increasing the more cough with some yellow sputum and very weak and very short of breath Yesterday patient hemoglobin was low in patients went to the oncology office in order the outpatients 1 unit of the blood Patients went home in patients not feeling good very short of breath and fever and came to the emergency department with patient's found hypoxic with O2 sat was dropped up to 80% initially patient was put on the BiPAP and then switched to nasal cannula and underwent for the x-ray and a blood work with psoas the patient have a pneumonia in the ER physicians call from the admissions ER physician did not think about PE at the time when I saw the patient's in the floor patients comfortably lying in the bed denied any chest pain denied any shortness of the breath while lying in the bed denied any swelling and no chest pain Patient's denied any history of any heart disease Patient is currently on a nasal cannula patient's is on the bedside discussed with the patient and the and the patient's oncologyAnd decided toContinues to IV antibiotic and to the CT angiogram to rule out any PE and also echocardiogram patients might have a some overload from the blood will give her some Lasix Past Medical History Cardiac Medical History: Denies: Congestive Heart Failure, Myocardial Infarction, Hypertension Pulmonary Medical History: Reports: Chronic Obstructive Pulmonary Disease (COPD) Denies: Asthma, Bronchitis, Pneumonia, Tuberculosis Neurological Medical History: Denies: Seizures Renal/ Medical History: Denies: End Stage Renal Disease GI Medical History: Denies: Cirrhosis, Gastroesophageal Reflux Disease Musculoskeltal Medical History: Denies: Arthritis Psychiatric Medical History: Denies: Bipolar Disorder, Depression Hematology: Reports: Anemia Denies: Bleeding Tendencies Social History Smoking Status: Former Smoker Number of Years Smokin Last Time Smoked: 2012 Frequency of Alcohol Use: None Hx Recreational Drug Use: No Drugs: None Hx Prescription Drug Abuse: No Family History Family History: Reviewed & Not Pertinent Parental Family History Reviewed: Yes Children Family History Reviewed: Yes Sibling(s) Family History Reviewed.: Yes Medication/Allergy Home Medications: Aspirin [Aspirin 81 mg Chewable Tablet] 81 mg PO DAILY 07/16/17 Budesonide/Formoterol Fumarate [Symbicort 160-4.5 Mcg Inhaler] 2 puff IH Q12 Multivit-Min/Iron/Folic Acid/K [Multi-Day Plus Minerals Tablet] 1 tab PO DAILY 07/16/17 Tamsulosin HCl [Flomax] 0.4 mg PO QPM 07/16/17 Metoclopramide HCl [Reglan 10 mg Tablet] 10 mg PO QIDP PRN 07/17/17 Allergies/Adverse Reactions: No Known Allergies Allergy (Unverified 07/16/17 11:34) Review of Systems Constitutional: PRESENT: chills, fatigue, fever(s), weakness. ABSENT: headache( s), weight gain, weight loss Eyes: ABSENT: visual disturbances Ears: ABSENT: hearing changes Cardiovascular: PRESENT: dyspnea on exertion. ABSENT: chest pain, edema, orthropnea, palpitations Respiratory: PRESENT: cough, sputum. ABSENT: hemoptysis Gastrointestinal: ABSENT: abdominal pain, constipation, diarrhea, hematemesis, hematochezia, nausea, vomiting Genitourinary: ABSENT: dysuria, hematuria Musculoskeletal: ABSENT: joint swelling Integumentary: ABSENT: rash, wounds Neurological: ABSENT: abnormal gait, abnormal speech, confusion, dizziness, focal weakness, syncope Psychiatric: ABSENT: anxiety, depression, homidical ideation, suicidal ideation Endocrine: ABSENT: cold intolerance, heat intolerance, menstrual abnormalities, polydipsia, polyuria Hematologic/Lymphatic: ABSENT: easy bleeding, easy bruising, lymphadenopathy Physical Exam Vital Signs: Temp Pulse Resp BP Pulse Ox 97.3 F 88 30 H 132/73 H 90 L 07/17/17 07:24 07/17/17 07:24 07/17/17 07:24 07/17/17 07:24 07/17/17 07:24 Intake & Output 07/16/17 07/17/17 07/18/17 06:59 06:59 06:59 Intake Total 400 Output Total 200 Balance 200 Weight 100 kg General appearance: PRESENT: no acute distress, well-developed, well-nourished Head exam: PRESENT: atraumatic, normocephalic Eye exam: PRESENT: conjunctiva pink, EOMI, PERRLA. ABSENT: scleral icterus Ear exam: PRESENT: normal external ear exam Mouth exam: PRESENT: moist, tongue midline Neck exam: PRESENT: full ROM. ABSENT: carotid bruit, JVD, lymphadenopathy, thyromegaly Respiratory exam: PRESENT: clear to auscultation kristi Cardiovascular exam: PRESENT: RRR. ABSENT: diastolic murmur, rubs, systolic murmur Pulses: PRESENT: normal dorsalis pedis pul, +2 pedal pulses bilateral Vascular exam: PRESENT: normal capillary refill GI/Abdominal exam: PRESENT: normal bowel sounds, soft. ABSENT: distended, guarding, mass, organolmegaly, rebound, tenderness Rectal exam: PRESENT: deferred Extremities exam: ABSENT: pedal edema Neurological exam: PRESENT: alert, awake, oriented to person, oriented to place , oriented to time, oriented to situation, CN II-XII grossly intact. ABSENT: motor sensory deficit Psychiatric exam: PRESENT: appropriate affect, normal mood. ABSENT: homicidal ideation, suicidal ideation Skin exam: PRESENT: dry, intact, warm. ABSENT: cyanosis, rash Results Laboratory Results: 07/17/17 05:40 07/17/17 05:40 07/17/17 07/17/17 07/17/17 05:15 05:40 05:40 WBC 3.0 L RBC 2.92 L Hgb 8.5 L Hct 25.3 L MCV 87 MCH 29.1 MCHC 33.5 RDW 17.3 H Plt Count 69 L Seg Neutrophils % Not Reportable Lymphocytes % Not Reportable Monocytes % Not Reportable Eosinophils % Not Reportable Basophils % Not Reportable Absolute Neutrophils Not Reportable Absolute Lymphocytes Not Reportable Absolute Monocytes Not Reportable Absolute Eosinophils Not Reportable Absolute Basophils Not Reportable Sodium 137.4 Potassium 3.9 Chloride 107 Carbon Dioxide 25 Anion Gap 5 BUN 13 Creatinine 0.52 Est GFR ( Amer) > 60 Est GFR (Non-Af Amer) > 60 Glucose 117 H Calcium 7.9 L Total Bilirubin 0.8 AST 35 ALT 53 Alkaline Phosphatase 86 Total Protein 4.6 L Albumin 2.5 L Urine Color YELLOW Urine Appearance CLEAR Urine pH 6.0 Ur Specific Berry 1.025 Urine Protein 30 H Urine Glucose (UA) NEGATIVE Urine Ketones NEGATIVE Urine Blood NEGATIVE Urine Nitrite NEGATIVE Ur Leukocyte Esterase NEGATIVE Urine WBC (Auto) 2 Urine RBC (Auto) 2 Impressions: Chest X-Ray 07/16/17 22:13 IMPRESSION: Cardiomegaly with no acute CHF. Bilateral pneumonia versus chronic interstitial change. Assessment & Plan - Diagnosis (1) Pneumonia Qualifiers: Pneumonia type: due to unspecified organism Laterality: bilateral Lung location: unspecified part of lung Qualified Code(s): J18.9 - Pneumonia, unspecified organism Is this a current diagnosis for this admission?: Yes Plan: Start the patient on a broad-spectrum antibiotic wait for the all culture (2) Shortness of breath Is this a current diagnosis for this admission?: Yes Plan: Most likely from underlying pneumonia with some other multifactorial due to the anemia may be of fluid overload due to the blood transfusions we also get the CT angiogram to rule out PE and also order the echocardiogram and continues IV antibiotic (3) Prostate cancer Is this a current diagnosis for this admission?: Yes Plan: We consult oncology (4) Pancytopenia Is this a current diagnosis for this admission?: Yes Plan: Due to the chemotherapy consult Oncology - Time Time Spent: 30 to 50 Minutes Medications reviewed and adjusted accordingly: Yes Anticipated discharge: Home Within: Other - Inpatient Certification I certify that my determination is in accordance with my understanding of Medicare's requirements for reasonable and necessary INPATIENT services [42 CFR 412.3e].: Yes Medical Necessity: Need For IV Fluids, Need for IV Antibiotics Post Hospital Care: D/C Exterior Work [employer]per Documentation - Plan Summary Plan Summary: Order the CT angiogram to rule out PE discussed with the oncology if is positive we will treat with the Lovenox as well as the platelet count is about 50 patients currently not actively bleeding we will also get the echocardiogram and continues to IV antibiotic Discussed with the patient and the about the patient's current conditions I spent more than 30 minutesWith all discussions with the patient and the and coordinate care
[2017-07-17] MEDS: BUDESONIDE/FORMOTEROL 160-4.5 MCG 60 PUFF/6 GM MDI IH SCH ×2 (11:41→16:16)
[2017-07-17] MEDS ORDERED: VANCOMYCIN HCL 0 MG in DEXTROSE 5%-WATER 250 ML IV NR (14:00)
--- NOTE | 2017-07-17 14:13 | RADIOLOGY REPORT (SQ) ---
EXAM DESCRIPTION: CTA CHEST COMPLETED DATE/TIME: 07/17/2017 1:49 pm REASON FOR STUDY: sob COMPARISON: Chest x-ray 07/16/2017 CT 05/25/2017 TECHNIQUE: CT scan of the chest performed using helical scanning technique with dynamic intravenous contrast injection. Images reviewed with lung, soft tissue and bone windows. Reconstructed coronal and sagittal MPR images reviewed. Additional 3 dimensional post-processing performed to develop Maximal Intensity Projection images (OR P). All images stored on PACS. All CT scanners at this facility use dose modulation, iterative reconstruction, and/or weight based d osing when appropriate to reduce radiation dose to as low as reasonably achievable (ALARA). [facility]: Dose Right [facility]: CareDose [facility]: Dose Right [facility]: Teradose 4D [facility]: GoNabit CONTRAST TYPE AND DOSE: contrast/concentration: Isovue 370.00 mg/ml; Total Contrast Delivered: 80.0 ml; Total Saline Delivered: 80.0 ml Contrast bolus optimized for the pulmonary arteries. Not diagnostic for the aorta. RENAL FUNCTION: BUN 13 creatinine 0.52 RADIATION DOSE: CT Rad equipment meets quality standard of care and radiation dose reduction techniq ues were employed. CTDIvol: 25.9 - 66.1 mGy. DLP: 1116 mGy-cm. . LIMITATIONS: None. FINDINGS: LUNGS AND PLEURA: Extensive ground-glass opacification in both lungs. Much more advanced than on the prior CT from May. Air bronchograms are seen. Minimal pleural effusions are presen t. AORTA AND GREAT VESSELS: No aneurysm. Contrast bolus not optimized for the aorta. HEART: No pericardial effusion. No significant coronary artery calcifications. PULMONARY ARTERIES: No emboli visualized in the main pulmonary arteries or the segmental branches. HILAR AND MEDIASTINAL STRUCTURES: There is several small mediastinal nodes are nonspecific. HARDWARE: None in the chest. UPPER ABDOMEN: No significant findings. Limited exam. THYROID AND OTHER SOFT TISSUES: No masses. No adenopathy. BONES: Sclerotic lesions are seen in multiple bones. Compression changes seen at about L1 that do no t appear to be acute. 3D MIPS: Confirm above findings. OTHER: No other significant finding. IMPRESSION: 1. There is no evidence of pulmonary emboli. 2. Extensive ground-glass opacification is present in the lungs suggestive of chronic interstitial d isease, interstitial edema, atypical pneumonia. This is a relatively nonspecific finding. This has advanced significantly since 05/25/2017, however. 3. There are sclerotic lesions in multiple bones concerning for metastases. Does patient have a kno wn neoplasm? COMMENT: Quality ID # [id number]: Final reports with documentation of one or more dose reduction techniques (e.g., Automated exposure control, adjustment of the mA and/or kV according to patient size, use of iterative reconstruction technique) TECHNICAL DOCUMENTATION: JOB ID: [id number]- All Rights Reserved Reading location - IP/workstation name: [email or web address]
[2017-07-17] MEDS ORDERED: FUROSEMIDE INJ/PF 20 MG/2 ML SDV IV ONE (14:30)
[2017-07-17 14:54] LABS: ARTERIAL BLOOD BASE EXCESS -0.5 mmol/L; ARTERIAL BLOOD H2CO3 0.94 mmol/L (1.05-1.35); ARTERIAL BLOOD HCO3 22.1 mmol/L (20-26); ARTERIAL BLOOD PCO2 31.1 mmHg (35-45); ARTERIAL BLOOD PH 7.47 (7.35-7.45); ARTERIAL BLOOD PO2 84.7 mmHg (80-100); ARTERIAL BLOOD TOTAL CO2 23.1 mmol/L (23-27)
[2017-07-17 14:55] LABS: ARTERIAL BLOOD FIO2 50%
[2017-07-17] MEDS: TAMSULOSIN HCL 0.4 MG CAP.SR.24H PO SCH (16:16)
[2017-07-17] MEDS: NORMAL SALINE 1000 ML 1,000 ML IV PRN (16:19)
--- NOTE | 2017-07-17 16:46 | PDOC CONSULTATION ---
Consultation Consult Date: 07/17/17 Attending physician:: AMI ARTEAGA Consult reason:: ARDS/pancytopenia/cancer History of Present Illness Admission Date/PCP: 07/16/17 23:31 AMI ARTEAGA MD History of Present Illness: RAMIN JUNIOR is a 76 year old male This is a 76-year-old male with the history of the prostate cancers currently follow oncology with Dr sánchez And currently on chemotherapy with the 3 dose of the chemo was given. The last 3 4 days patient's noticed increasing the more cough with some yellow sputum and very weak and very short of breath Yesterday patient hemoglobin was low in patients went to the oncology office in order the outpatients 1 unit of the blood Patient very short of breath and fever and came to the emergency department with patient's found hypoxic with O2 sat was dropped up to 80% initially patient was put on the BiPAP and underwent for the x-ray and a blood work.Then the patient admitted for pna. Subsequent CT scan of the chest showed extensive disease and I requested the primary care doctor Dr. 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 no pets, norecent travel +admits to PND,Nocturnal cough and edema as well as snoring, restless sleep nocturia x 3 unrestful sleep and eds Past Medical History Cardiac Medical History: Denies: Congestive Heart Failure, Myocardial Infarction, Hypertension Pulmonary Medical History: Reports: Chronic Obstructive Pulmonary Disease (COPD) Denies: Asthma, Bronchitis, Pneumonia, Tuberculosis Neurological Medical History: Denies: Seizures Renal/ Medical History: Denies: End Stage Renal Disease GI Medical History: Denies: Cirrhosis, Gastroesophageal Reflux Disease Musculoskeltal Medical History: Denies: Arthritis Psychiatric Medical History: Denies: Bipolar Disorder, Depression Hematology: Reports: Anemia Denies: Bleeding Tendencies Social History Information Source: Patient, [facility] Records Smoking Status: Former Smoker Cigarettes Packs Per Day: 1.5 Number of Years Smokin Last Time Smoked: 2013 Passive smoke exposure as: Both Frequency of Alcohol Use: None Hx Recreational Drug Use: No Drugs: None Hx Prescription Drug Abuse: No Do you have pets?: No Have you had any respiratory illnesses as a child?: No Have you been exposed to any sick contacts recently?: No Have you travelled outside of [place] in the past 12 months?: Yes Family History Family History: Malignancy Parental Family History Reviewed: Yes Children Family History Reviewed: Yes Sibling(s) Family History Reviewed.: Yes Medication/Allergy Home Medications: Aspirin [Aspirin 81 mg Chewable Tablet] 81 mg PO DAILY 07/16/17 Budesonide/Formoterol Fumarate [Symbicort 160-4.5 Mcg Inhaler] 2 puff IH Q12 Multivit-Min/Iron/Folic Acid/K [Multi-Day Plus Minerals Tablet] 1 tab PO DAILY 07/16/17 Tamsulosin HCl [Flomax] 0.4 mg PO QPM 07/16/17 Metoclopramide HCl [Reglan 10 mg Tablet] 10 mg PO QIDP PRN 07/17/17 Allergies/Adverse Reactions: No Known Allergies Allergy (Unverified 07/16/17 11:34) Review of Systems Constitutional: PRESENT: anorexia, fatigue, night sweats, weakness. ABSENT: headache(s) Eyes: ABSENT: visual disturbances Ears: ABSENT: hearing changes Nose, Mouth, and Throat: ABSENT: sore throat Cardiovascular: PRESENT: edema, orthropnea. ABSENT: palpitations Respiratory: PRESENT: hemoptysis Gastrointestinal: PRESENT: constipation. ABSENT: bloating, coffee ground emesis , dysphagia, heartburn, hematemesis, hematochezia, melena Genitourinary: ABSENT: dysuria, hematuria Integumentary: ABSENT: pruritus, rash Neurological: ABSENT: abnormal gait, abnormal movements, abnormal speech, confusion, focal weakness, frequent falls, lack of coordination, memory loss Psychiatric: ABSENT: hallucinations, homidical ideation, suicidal ideation Endocrine: ABSENT: cold intolerance, heat intolerance, menstrual abnormalities, polydipsia, polyuria Hematologic/Lymphatic: PRESENT: easy bruising Physical Exam Vital Signs: Temp Pulse Resp BP Pulse Ox 97.3 F 92 22 H 132/73 H 88 L 07/17/17 07:24 07/17/17 08:19 07/17/17 08:19 07/17/17 07:24 07/17/17 08:19 Intake & Output 07/16/17 07/17/17 07/18/17 06:59 06:59 06:59 Intake Total 400 Output Total 200 Balance 200 Weight 100 kg General appearance: PRESENT: cooperative, disheveled, mild distress, well- developed Head exam: PRESENT: atraumatic, normocephalic Eye exam: PRESENT: conjunctiva pale, EOMI. ABSENT: nystagmus, periorbital swelling, scleral icterus Mouth exam: PRESENT: dry mucosa, neck supple, tongue midline Teeth exam: PRESENT: edentulous - [id number] Neck exam: ABSENT: carotid bruit, JVD, lymphadenopathy, thyromegaly, tracheal deviation, tracheostomy Respiratory exam: PRESENT: decreased breath sounds, prolonged expiratory phas, rales, rhonchi, symmetrical, unlabored, wheezes. ABSENT: retraction, stridor Cardiovascular exam: PRESENT: RRR, +S1, +S2, tachycardia Pulses: PRESENT: normal radial pulses GI/Abdominal exam: PRESENT: diminished bowel sounds, soft Extremities exam: ABSENT: calf tenderness, clubbing, joint swelling Musculoskeletal exam: ABSENT: deformity, dislocation Neurological exam: PRESENT: alert, awake Psychiatric exam: PRESENT: normal mood Skin exam: PRESENT: dry, warm Results Laboratory Results: 07/17/17 05:40 07/17/17 05:40 07/17/17 07/17/17 07/17/17 05:15 05:40 05:40 WBC 3.0 L RBC 2.92 L Hgb 8.5 L Hct 25.3 L MCV 87 MCH 29.1 MCHC 33.5 RDW 17.3 H Plt Count 69 L Seg Neutrophils % Not Reportable Lymphocytes % Not Reportable Monocytes % Not Reportable Eosinophils % Not Reportable Basophils % Not Reportable Absolute Neutrophils Not Reportable Absolute Lymphocytes Not Reportable Absolute Monocytes Not Reportable Absolute Eosinophils Not Reportable Absolute Basophils Not Reportable Sodium 137.4 Potassium 3.9 Chloride 107 Carbon Dioxide 25 Anion Gap 5 BUN 13 Creatinine 0.52 Est GFR ( Amer) > 60 Est GFR (Non-Af Amer) > 60 Glucose 117 H Calcium 7.9 L Total Bilirubin 0.8 AST 35 ALT 53 Alkaline Phosphatase 86 Total Protein 4.6 L Albumin 2.5 L Urine Color YELLOW Urine Appearance CLEAR Urine pH 6.0 Ur Specific Belva 1.025 Urine Protein 30 H Urine Glucose (UA) NEGATIVE Urine Ketones NEGATIVE Urine Blood NEGATIVE Urine Nitrite NEGATIVE Ur Leukocyte Esterase NEGATIVE Urine WBC (Auto) 2 Urine RBC (Auto) 2 Impressions: Chest X-Ray 07/16/17 22:13 IMPRESSION: Cardiomegaly with no acute CHF. Bilateral pneumonia versus chronic interstitial change. Chest/Abdomen CTA 07/17/17 00:00 IMPRESSION: 1. There is no evidence of pulmonary emboli. 2. Extensive ground-glass opacification is present in the lungs suggestive of chronic interstitial disease, interstitial edema, atypical pneumonia. This is a relatively nonspecific finding. This has advanced significantly since 2017, however. 3. There are sclerotic lesions in multiple bones concerning for metastases. Does patient have a known neoplasm? Assessment & Plan - Diagnosis (1) ARDS (adult respiratory distress syndrome) Is this a current diagnosis for this admission?: Yes Plan: see CT scan .PAO2/FIO2 ok for now if worse intubate TV 500 RR 14 FIO@100% PEEP7 PS10 ABG 30 min after intubation present to PCP as needed (2) Pancytopenia Is this a current diagnosis for this admission?: Yes Plan: chemotherapy see onc note (3) Pneumonia Qualifiers: Pneumonia type: due to unspecified organism Laterality: bilateral Lung location: unspecified part of lung Qualified Code(s): J18.9 - Pneumonia, unspecified organism Is this a current diagnosis for this admission?: Yes Plan: culture sputum - Time Total Critical Time (Minutes): 60
[2017-07-17] MEDS: VANCOMYCIN HCL 1,500 MG in DEXTROSE 5%-WATER 250 ML IV SCH (18:19)
[2017-07-18] MEDS: IPRATROPIUM/ALBUTEROL 0.5-2.5 MG/3 ML AMPUL NEB SCH ×4 (02:11→20:16)
[2017-07-18 04:23] LABS: HEMATOCRIT 26.5 % (37.9-51.0); HEMOGLOBIN 8.7 g/dL (13.5-17.0); MEAN CORPUSCULAR HEMOGLOBIN 28.7 pg (27.0-33.4); MEAN CORPUSCULAR VOLUME 87 fl (80-97); RED BLOOD COUNT 3.05 10^6/uL (4.35-5.55); RED CELL DISTRIBUTION WIDTH 17.7 % (11.5-14.0)
[2017-07-18 04:29] LABS: PLATELET COUNT 49 10^3/uL (150-450)
[2017-07-18 04:30] LABS: ALANINE AMINOTRANSFERASE 42 U/L (21-72); ALBUMIN 2.9 g/dL (3.5-5.0); ALKALINE PHOSPHATASE 98 U/L (38-126); ANION GAP 8 (5-19); ASPARTATE AMINO TRANSFERASE 38 U/L (17-59); BILIRUBIN,DIRECT 0.2 mg/dL (0.0-0.4); BILIRUBIN,TOTAL 0.5 mg/dL (0.2-1.3); BLOOD UREA NITROGEN 13 mg/dL (7-20); CALCIUM 7.8 mg/dL (8.4-10.2); CARBON DIOXIDE 27 mmol/L (22-30); CHLORIDE 104 mmol/L (98-107); GLUCOSE 141 mg/dL (75-110); POTASSIUM 3.7 mmol/L (3.6-5.0); SODIUM 138.8 mmol/L (137-145); TOTAL PROTEIN 5.3 g/dL (6.3-8.2)
[2017-07-18 04:40] LABS: SEGMENTED NEUTROPHILS % (MAN) 77 % (42-78); TOTAL CELLS COUNTED 100
[2017-07-18 04:41] LABS: ABSOLUTE LYMPHOCYTES# (MANUAL) 0.1 10^3/uL (0.5-4.7); ABSOLUTE MONOCYTES # (MANUAL) 0.1 10^3/uL (0.1-1.4); ABSOLUTE NEUTROPHILS# (MANUAL) 1.6 10^3/uL (1.7-8.2); BASOPHILS % (MANUAL) 0 % (0-2); EOSINOPHILS % (MANUAL) 0 % (0-6); LYMPHOCYTES % (MANUAL) 4 % (13-45); METAMYELOCYTES % (MANUAL) 1 % (0); MONOCYTES % (MANUAL) 4 % (3-13)
[2017-07-18 04:43] LABS: ANISOCYTOSIS 1+; BURR CELLS SLIGHT; OVALOCYTES SLIGHT; POIKILOCYTOSIS 1+; TOXIC GRANULATION 1+
[2017-07-18 04:44] LABS: PLATELET COMMENT DECREASED; TEAR DROP CELLS SLIGHT; WHITE BLOOD COUNT 1.8 10^3/uL (4.0-10.5)
[2017-07-18 04:45] LABS: BAND NEUTROPHILS % (MANUAL) 13 % (3-5)
[2017-07-18] MEDS: VANCOMYCIN HCL 1,500 MG in DEXTROSE 5%-WATER 250 ML IV SCH ×3 (05:19→18:25)
[2017-07-18] MEDS: NORMAL SALINE 1000 ML 1,000 ML IV PRN (05:21)
[2017-07-18] MEDS: CEFEPIME 2 GM/D5W RTU 2 GM/50 ML RTUPB IV SCH ×2 (05:21→17:51)
[2017-07-18] MEDS: GUAIFENESIN 600 MG TABLET.SA PO SCH ×3 (05:22→22:34)
[2017-07-18] MEDS: FAMOTIDINE INJ/PF 20 MG/2 ML SDV IV SCH ×3 (05:22→22:34)
--- NOTE | 2017-07-18 07:01 | RADIOLOGY REPORT (SQ) ---
EXAM DESCRIPTION: CHEST SINGLE VIEW CLINICAL HISTORY: 76 years Male, ARDS COMPARISON: 07/16/17. NUMBER OF VIEWS/TECHNIQUE: 1/AP LIMITATIONS: None. FINDINGS: Extensive, evolved, mixed moderate interstitial and small airspace opacities, normal cardiac silhouette, and moderate right-sided deviation of the mid trachea. No pneumothorax. No acute bone defect. IMPRESSION: No significant change.
[2017-07-18] MEDS ORDERED: ONDANSETRON 4 MG TAB.RAPDIS PO PRN (08:42)
[2017-07-18 08:48] LABS: ARTERIAL BLOOD BASE EXCESS 2.8 mmol/L; ARTERIAL BLOOD H2CO3 1.11 mmol/L (1.05-1.35); ARTERIAL BLOOD HCO3 26.4 mmol/L (20-26); ARTERIAL BLOOD O2 SATURATION 94.2 % (94-98); ARTERIAL BLOOD PCO2 36.9 mmHg (35-45); ARTERIAL BLOOD PH 7.47 (7.35-7.45); ARTERIAL BLOOD PO2 65.4 mmHg (80-100); ARTERIAL BLOOD TOTAL CO2 27.6 mmol/L (23-27)
[2017-07-18] MEDS ORDERED: ONDANSETRON HCL INJ/PF 4 MG/2 ML SDV IV PRN (08:48)
[2017-07-18] MEDS ORDERED: ONDANSETRON HCL INJ/PF 4 MG/2 ML SDV ONE (08:49)
[2017-07-18 08:50] LABS: ARTERIAL BLOOD FIO2 100%
[2017-07-18] MEDS: LEVOFLOXACIN 500 MG/D5W RTU 500 MG/100 ML RTUPB IV SCH (08:53)
[2017-07-18] MEDS: MULTIVITAMIN TABLET PO SCH (09:01)
[2017-07-18] MEDS ORDERED: ONDANSETRON HCL INJ/PF 4 MG/2 ML SDV IV ONE (09:15)
--- NOTE | 2017-07-18 11:24 | PDOC CONSULTATION ---
Consultation Consult Date: 07/18/17 Consult reason:: Hematology/Oncology consultation was requested for patient with pancytoenia after chemotherapy for metastatic prostate cancer. History of Present Illness Admission Date/PCP: 07/16/17 23:31 AMI ARTEAGA MD History of Present Illness: Mr. Merino is a 76 year old gentleman who is currently undergoing chemotherapy with taxotere for metastatic prostate cancer. All indications so far have indicated that he has been responding well to his treatments. He received his most recent cycle earlier this week and at the time, was feeling well with just a little cough. His blood counts were stable. However, over the next 2-3 days , he began having progressive dyspnea and cough with fever. He was admitted for treatment of hypoxia and pneumonia. His blood counts have been decreasing and his O2 requirement has been increasing. This morning, he is in the ICU on Bi-pap and states that he feels better since the Bipap was started. He denies any pain. His is at bedside. Past Medical History Cardiac Medical History: Denies: Congestive Heart Failure, Myocardial Infarction, Hypertension Pulmonary Medical History: Reports: Chronic Obstructive Pulmonary Disease (COPD) Denies: Asthma, Bronchitis, Pneumonia, Tuberculosis Neurological Medical History: Denies: Seizures Renal/ Medical History: Denies: End Stage Renal Disease GI Medical History: Denies: Cirrhosis, Gastroesophageal Reflux Disease Musculoskeltal Medical History: Denies: Arthritis Psychiatric Medical History: Denies: Bipolar Disorder, Depression Hematology: Reports: Anemia Denies: Bleeding Tendencies Social History Smoking Status: Former Smoker Cigarettes Packs Per Day: 1.5 Number of Years Smokin Last Time Smoked: 2012 Frequency of Alcohol Use: None Hx Recreational Drug Use: No Drugs: None Hx Prescription Drug Abuse: No Family History Family History: Malignancy Parental Family History Reviewed: Yes Children Family History Reviewed: No Sibling(s) Family History Reviewed.: Yes Medication/Allergy Home Medications: Aspirin [Aspirin 81 mg Chewable Tablet] 81 mg PO DAILY 07/16/17 Budesonide/Formoterol Fumarate [Symbicort 160-4.5 Mcg Inhaler] 2 puff IH Q12 Multivit-Min/Iron/Folic Acid/K [Multi-Day Plus Minerals Tablet] 1 tab PO DAILY 07/16/17 Tamsulosin HCl [Flomax] 0.4 mg PO QPM 03/29/18 Metoclopramide HCl [Reglan 10 mg Tablet] 10 mg PO QIDP PRN 07/17/17 Allergies/Adverse Reactions: No Known Allergies Allergy (Unverified 07/16/17 11:34) Review of Systems Constitutional: PRESENT: fever(s). ABSENT: headache(s) Eyes: ABSENT: visual disturbances Ears: ABSENT: hearing changes Nose, Mouth, and Throat: ABSENT: sore throat Cardiovascular: PRESENT: dyspnea on exertion. ABSENT: chest pain Respiratory: PRESENT: cough, dyspnea, hemoptysis Gastrointestinal: ABSENT: abdominal pain, constipation, nausea Genitourinary: ABSENT: dysuria Musculoskeletal: ABSENT: back pain Integumentary: ABSENT: rash Neurological: ABSENT: confusion, numbness Psychiatric: PRESENT: anxiety Hematologic/Lymphatic: ABSENT: easy bleeding Physical Exam Vital Signs: Temp Pulse Resp BP Pulse Ox 99.2 F 104 H 31 H 110/76 100 07/18/17 10:00 07/18/17 10:00 07/18/17 10:00 07/18/17 10:00 07/18/17 10:00 Intake & Output 07/17/17 07/18/17 07/19/17 06:59 06:59 06:59 Intake Total 400 5322 Output Total 200 2100 Balance 200 3222 Weight 100 kg 97.3 kg General appearance: PRESENT: mild distress, well-nourished Exam: 76 year old male. Head exam: PRESENT: atraumatic Eye exam: PRESENT: PERRLA Ear exam: PRESENT: normal external ear exam Mouth exam: PRESENT: moist, neck supple Neck exam: ABSENT: lymphadenopathy, tenderness Respiratory exam: PRESENT: clear to auscultation kristi. ABSENT: crackles, wheezes Cardiovascular exam: PRESENT: RRR. ABSENT: systolic murmur GI/Abdominal exam: PRESENT: soft. ABSENT: tenderness Extremities exam: ABSENT: pedal edema Musculoskeletal exam: PRESENT: normal inspection Neurological exam: PRESENT: alert, awake, oriented to person, oriented to place , oriented to situation Psychiatric exam: PRESENT: appropriate affect Focused psych exam: ABSENT: pressured speech, psychomotor agitation Skin exam: PRESENT: normal color Results Laboratory Results: 07/18/17 03:47 07/18/17 03:47 07/17/17 07/18/17 07/18/17 14:20 03:47 03:47 WBC RBC Hgb Hct MCV MCH MCHC RDW Plt Count Seg Neutrophils % Lymphocytes % Monocytes % Eosinophils % Basophils % Absolute Neutrophils Absolute Lymphocytes Absolute Monocytes Absolute Eosinophils Absolute Basophils Carbonic Acid 0.94 L HCO3/H2CO3 Ratio 23:1 ABG pH 7.47 H ABG pCO2 31.1 L ABG pO2 84.7 ABG HCO3 22.1 ABG O2 Saturation 97.0 ABG Base Excess -0.5 FiO2 50% Sodium 138.8 Potassium 3.7 Chloride 104 Carbon Dioxide 27 Anion Gap 8 BUN 13 Creatinine 0.54 Est GFR ( Amer) > 60 Est GFR (Non-Af Amer) > 60 Glucose 141 H Lactic Acid 1.8 Calcium 7.8 L Magnesium 1.8 Total Bilirubin 0.5 AST 38 ALT 42 Alkaline Phosphatase 98 Total Protein 5.3 L Albumin 2.9 L 07/18/17 07/18/17 03:47 08:26 WBC 1.8 L D RBC 3.05 L Hgb 8.7 L Hct 26.5 L MCV 87 MCH 28.7 MCHC 33.0 RDW 17.7 H Plt Count 49 L Seg Neutrophils % Not Reportable Lymphocytes % Not Reportable Monocytes % Not Reportable Eosinophils % Not Reportable Basophils % Not Reportable Absolute Neutrophils Not Reportable Absolute Lymphocytes Not Reportable Absolute Monocytes Not Reportable Absolute Eosinophils Not Reportable Absolute Basophils Not Reportable Carbonic Acid 1.11 HCO3/H2CO3 Ratio 23:1 ABG pH 7.47 H ABG pCO2 36.9 ABG pO2 65.4 L ABG HCO3 26.4 H ABG O2 Saturation 94.2 ABG Base Excess 2.8 FiO2 100% Sodium Potassium Chloride Carbon Dioxide Anion Gap BUN Creatinine Est GFR ( Amer) Est GFR (Non-Af Amer) Glucose Lactic Acid Calcium Magnesium Total Bilirubin AST ALT Alkaline Phosphatase Total Protein Albumin Impressions: Chest/Abdomen CTA 07/17/17 00:00 IMPRESSION: 1. There is no evidence of pulmonary emboli. 2. Extensive ground-glass opacification is present in the lungs suggestive of chronic interstitial disease, interstitial edema, atypical pneumonia. This is a relatively nonspecific finding. This has advanced significantly since 2017, however. 3. There are sclerotic lesions in multiple bones concerning for metastases. Does patient have a known neoplasm? Chest X-Ray 07/18/17 06:00 IMPRESSION: No significant change. Assessment & Plan - Diagnosis (1) Prostate cancer Is this a current diagnosis for this admission?: Yes Plan: Mets to the bone. He continues to respond to current chemo. Therefore, I believe it is very reasonable to continue aggressive treatment. No further chemo is planned for at least 3 weeks. (2) Pancytopenia Is this a current diagnosis for this admission?: Yes Plan: This is secondary to his chemotherapy as well as to the infection. He did receive neulasta. Therefore, count should begin to improve over the next 48-72 hours. (3) Pneumonia Qualifiers: Pneumonia type: due to unspecified organism Laterality: bilateral Lung location: unspecified part of lung Qualified Code(s): J18.9 - Pneumonia, unspecified organism Is this a current diagnosis for this admission?: Yes Plan: Agree with current antibiotics. I have explained to the patient and that due to his low immune system, this will be more difficult to treat, but he should be able to recover from this. We discussed his wishes and I have explained that Dr. Hernandez believes he may need to be placed on ventilator and that there is a chance that if he is placed on life support, he may not be able to come off. However, I believe his underlying process is reversible and that this is a reasonable treatment. He and his agree that we will try NOT to intubate over the next 24 hours and re-evaluate in the morning. He is current comfortable on the BiPAP. (4) Anxiety Is this a current diagnosis for this admission?: Yes Plan: Due to BiPAP. I will order Ativan and Morphine IV PRN for air hunger or Anxiety. - Plan Summary Plan Summary: I discussed his care with Dr. Hernandez. He is in agreement with plans to hold off on intubation but that this is appropriate if needed. Total time with patient and coordination of care = 45 minutes.
[2017-07-18] MEDS: LORAZEPAM INJ 2 MG/1 ML VIAL IV PRN ×2 (12:00→13:58)
[2017-07-18] MEDS: BUDESONIDE/FORMOTEROL 160-4.5 MCG 60 PUFF/6 GM MDI IH SCH ×2 (13:41→18:11)
[2017-07-18] MEDS: MORPHINE SULFATE 10 MG/ML INJ IV PRN (14:59)
[2017-07-18] MEDS: TAMSULOSIN HCL 0.4 MG CAP.SR.24H PO SCH (17:51)
--- NOTE | 2017-07-18 18:12 | PDOC PROGRESS REPORT ---
Subjective Progress Note for:: 07/18/17 Subjective:: Patient was seen in ICU, presently on BiPAP to support breathing, he has extensive pneumonia, he developed pancytopenia secondary to chemotherapy, on chemotherapy for metastatic prostate cancer not presently requiring invasive mechanical ventilation Reason For Visit: PNEUMONIA Physical Exam Vital Signs: Temp Pulse Resp BP Pulse Ox 99.1 F 97 36 H 132/77 H 96 07/18/17 17:48 07/18/17 17:48 07/18/17 17:48 07/18/17 17:48 07/18/17 17:48 Intake & Output 07/17/17 07/18/17 07/19/17 06:59 06:59 06:59 Intake Total 400 5322 Output Total 200 2100 220 Balance 200 3222 -220 Weight 100 kg 97.3 kg General appearance: PRESENT: mild distress Eye exam: PRESENT: PERRLA Respiratory exam: PRESENT: rhonchi Cardiovascular exam: PRESENT: +S1, +S2 Neurological exam: PRESENT: alert Results Laboratory Results: 07/18/17 03:47 07/18/17 03:47 07/18/17 07/18/17 07/18/17 03:47 03:47 03:47 WBC 1.8 L D RBC 3.05 L Hgb 8.7 L Hct 26.5 L MCV 87 MCH 28.7 MCHC 33.0 RDW 17.7 H Plt Count 49 L Seg Neutrophils % Not Reportable Lymphocytes % Not Reportable Monocytes % Not Reportable Eosinophils % Not Reportable Basophils % Not Reportable Absolute Neutrophils Not Reportable Absolute Lymphocytes Not Reportable Absolute Monocytes Not Reportable Absolute Eosinophils Not Reportable Absolute Basophils Not Reportable Carbonic Acid HCO3/H2CO3 Ratio ABG pH ABG pCO2 ABG pO2 ABG HCO3 ABG O2 Saturation ABG Base Excess FiO2 Sodium 138.8 Potassium 3.7 Chloride 104 Carbon Dioxide 27 Anion Gap 8 BUN 13 Creatinine 0.54 Est GFR ( Amer) > 60 Est GFR (Non-Af Amer) > 60 Glucose 141 H Lactic Acid 1.8 Calcium 7.8 L Magnesium 1.8 Total Bilirubin 0.5 AST 38 ALT 42 Alkaline Phosphatase 98 Total Protein 5.3 L Albumin 2.9 L 07/18/17 08:26 WBC RBC Hgb Hct MCV MCH MCHC RDW Plt Count Seg Neutrophils % Lymphocytes % Monocytes % Eosinophils % Basophils % Absolute Neutrophils Absolute Lymphocytes Absolute Monocytes Absolute Eosinophils Absolute Basophils Carbonic Acid 1.11 HCO3/H2CO3 Ratio 23:1 ABG pH 7.47 H ABG pCO2 36.9 ABG pO2 65.4 L ABG HCO3 26.4 H ABG O2 Saturation 94.2 ABG Base Excess 2.8 FiO2 100% Sodium Potassium Chloride Carbon Dioxide Anion Gap BUN Creatinine Est GFR ( Amer) Est GFR (Non-Af Amer) Glucose Lactic Acid Calcium Magnesium Total Bilirubin AST ALT Alkaline Phosphatase Total Protein Albumin Impressions: Chest/Abdomen CTA 07/17/17 00:00 IMPRESSION: 1. There is no evidence of pulmonary emboli. 2. Extensive ground-glass opacification is present in the lungs suggestive of chronic interstitial disease, interstitial edema, atypical pneumonia. This is a relatively nonspecific finding. This has advanced significantly since 2017, however. 3. There are sclerotic lesions in multiple bones concerning for metastases. Does patient have a known neoplasm? Chest X-Ray 07/18/17 06:00 IMPRESSION: No significant change. Assessment & Plan - Diagnosis (1) Pancytopenia Is this a current diagnosis for this admission?: Yes (2) Pneumonia Qualifiers: Pneumonia type: due to unspecified organism Laterality: bilateral Lung location: unspecified part of lung Qualified Code(s): J18.9 - Pneumonia, unspecified organism Is this a current diagnosis for this admission?: Yes Plan: Continue IV antibiotic (3) Prostate cancer Is this a current diagnosis for this admission?: Yes (4) Acute hypoxemic respiratory failure Is this a current diagnosis for this admission?: Yes Plan: Continue BiPAP machine
[2017-07-18 18:13] LABS: VANCOMYCIN,TROUGH 11.8 ug/mL (5.0-20.0)
--- NOTE | 2017-07-18 19:06 | PDOC PROGRESS REPORT ---
Subjective Progress Note for:: 07/18/17 Subjective:: stable Reason For Visit: PNEUMONIA Physical Exam Vital Signs: Temp Pulse Resp BP Pulse Ox 98.8 F 108 H 29 H 107/49 L 93 07/18/17 08:00 07/18/17 08:00 07/18/17 08:00 07/18/17 08:00 07/18/17 08:00 Intake & Output 07/17/17 07/18/17 07/19/17 06:59 06:59 06:59 Intake Total 400 5322 Output Total 200 2100 Balance 200 3222 Weight 100 kg 97.3 kg General appearance: PRESENT: cooperative, disheveled, well-developed Head exam: PRESENT: atraumatic, normocephalic Eye exam: PRESENT: conjunctiva pale, EOMI. ABSENT: nystagmus, periorbital swelling, scleral icterus Mouth exam: PRESENT: dry mucosa, neck supple, tongue midline Neck exam: ABSENT: carotid bruit, JVD, lymphadenopathy, thyromegaly, tracheal deviation, tracheostomy Respiratory exam: PRESENT: decreased breath sounds, prolonged expiratory phas, rales, rhonchi, symmetrical, unlabored. ABSENT: retraction, stridor, tachypnea Cardiovascular exam: PRESENT: RRR, +S1, +S2 Pulses: PRESENT: normal radial pulses GI/Abdominal exam: PRESENT: diminished bowel sounds, soft Extremities exam: ABSENT: clubbing, joint swelling Musculoskeletal exam: ABSENT: deformity, dislocation Neurological exam: PRESENT: alert, awake Psychiatric exam: PRESENT: normal mood Skin exam: PRESENT: dry, warm Results Laboratory Results: 07/18/17 03:47 07/18/17 03:47 07/17/17 07/18/17 07/18/17 14:20 03:47 03:47 WBC RBC Hgb Hct MCV MCH MCHC RDW Plt Count Seg Neutrophils % Lymphocytes % Monocytes % Eosinophils % Basophils % Absolute Neutrophils Absolute Lymphocytes Absolute Monocytes Absolute Eosinophils Absolute Basophils Carbonic Acid 0.94 L HCO3/H2CO3 Ratio 23:1 ABG pH 7.47 H ABG pCO2 31.1 L ABG pO2 84.7 ABG HCO3 22.1 ABG O2 Saturation 97.0 ABG Base Excess -0.5 FiO2 50% Sodium 138.8 Potassium 3.7 Chloride 104 Carbon Dioxide 27 Anion Gap 8 BUN 13 Creatinine 0.54 Est GFR ( Amer) > 60 Est GFR (Non-Af Amer) > 60 Glucose 141 H Lactic Acid 1.8 Calcium 7.8 L Magnesium 1.8 Total Bilirubin 0.5 AST 38 ALT 42 Alkaline Phosphatase 98 Total Protein 5.3 L Albumin 2.9 L 07/18/17 03:47 WBC 1.8 L D RBC 3.05 L Hgb 8.7 L Hct 26.5 L MCV 87 MCH 28.7 MCHC 33.0 RDW 17.7 H Plt Count 49 L Seg Neutrophils % Not Reportable Lymphocytes % Not Reportable Monocytes % Not Reportable Eosinophils % Not Reportable Basophils % Not Reportable Absolute Neutrophils Not Reportable Absolute Lymphocytes Not Reportable Absolute Monocytes Not Reportable Absolute Eosinophils Not Reportable Absolute Basophils Not Reportable Carbonic Acid HCO3/H2CO3 Ratio ABG pH ABG pCO2 ABG pO2 ABG HCO3 ABG O2 Saturation ABG Base Excess FiO2 Sodium Potassium Chloride Carbon Dioxide Anion Gap BUN Creatinine Est GFR ( Amer) Est GFR (Non-Af Amer) Glucose Lactic Acid Calcium Magnesium Total Bilirubin AST ALT Alkaline Phosphatase Total Protein Albumin Impressions: Chest/Abdomen CTA 07/17/17 00:00 IMPRESSION: 1. There is no evidence of pulmonary emboli. 2. Extensive ground-glass opacification is present in the lungs suggestive of chronic interstitial disease, interstitial edema, atypical pneumonia. This is a relatively nonspecific finding. This has advanced significantly since 2017, however. 3. There are sclerotic lesions in multiple bones concerning for metastases. Does patient have a known neoplasm? Chest X-Ray 07/18/17 06:00 IMPRESSION: No significant change. Assessment & Plan - Diagnosis (1) ARDS (adult respiratory distress syndrome) Is this a current diagnosis for this admission?: Yes Plan: see CT scan .PAO2/FIO2 ok for now if worse intubate TV 500 RR 14 FIO@100% PEEP7 PS10 ABG 30 min after intubation present to PCP as needed no change last 24 hrs (2) Pancytopenia Is this a current diagnosis for this admission?: Yes Plan: chemotherapy see onc note (3) Pneumonia Qualifiers: Pneumonia type: due to unspecified organism Laterality: bilateral Lung location: unspecified part of lung Qualified Code(s): J18.9 - Pneumonia, unspecified organism Is this a current diagnosis for this admission?: Yes Plan: culture sputum - Time Total Critical Time (Minutes): 45
[2017-07-19] MEDS: LORAZEPAM INJ 2 MG/1 ML VIAL IV PRN (00:57)
[2017-07-19] MEDS: MORPHINE SULFATE 10 MG/ML INJ IV PRN ×3 (00:57→16:53)
[2017-07-19] MEDS: VANCOMYCIN HCL 1,500 MG in DEXTROSE 5%-WATER 250 ML IV SCH ×3 (00:58→18:53)
[2017-07-19] MEDS: IPRATROPIUM/ALBUTEROL 0.5-2.5 MG/3 ML AMPUL NEB SCH ×4 (01:48→20:16)
[2017-07-19 04:52] LABS: HEMATOCRIT 25.4 % (37.9-51.0); HEMOGLOBIN 8.5 g/dL (13.5-17.0); MEAN CORPUSCULAR HEMOGLOBIN 29.3 pg (27.0-33.4); MEAN CORPUSCULAR HGB CONC 33.5 g/dL (32.0-36.0); MEAN CORPUSCULAR VOLUME 88 fl (80-97); RED CELL DISTRIBUTION WIDTH 17.5 % (11.5-14.0); WHITE BLOOD COUNT 2.7 10^3/uL (4.0-10.5)
[2017-07-19 04:57] LABS: PLATELET COUNT 40 10^3/uL (150-450)
[2017-07-19 05:08] LABS: ALANINE AMINOTRANSFERASE 50 U/L (21-72); ALBUMIN 2.5 g/dL (3.5-5.0); ALKALINE PHOSPHATASE 113 U/L (38-126); ASPARTATE AMINO TRANSFERASE 63 U/L (17-59); BILIRUBIN,DIRECT 0.1 mg/dL (0.0-0.4); BILIRUBIN,TOTAL 0.4 mg/dL (0.2-1.3); BLOOD UREA NITROGEN 16 mg/dL (7-20); CALCIUM 7.6 mg/dL (8.4-10.2); CARBON DIOXIDE 30 mmol/L (22-30); CHLORIDE 104 mmol/L (98-107); GLUCOSE 119 mg/dL (75-110); POTASSIUM 3.7 mmol/L (3.6-5.0); SODIUM 137.9 mmol/L (137-145); TOTAL PROTEIN 4.4 g/dL (6.3-8.2)
[2017-07-19 05:36] LABS: ABSOLUTE LYMPHOCYTES# (MANUAL) 0.5 10^3/uL (0.5-4.7); ABSOLUTE MONOCYTES # (MANUAL) 0.1 10^3/uL (0.1-1.4); ABSOLUTE NEUTROPHILS# (MANUAL) 2.1 10^3/uL (1.7-8.2); BAND NEUTROPHILS % (MANUAL) 6 % (3-5); BASOPHILS % (MANUAL) 2 % (0-2); EOSINOPHILS % (MANUAL) 0 % (0-6); LYMPHOCYTES % (MANUAL) 12 % (13-45); MONOCYTES % (MANUAL) 4 % (3-13); SEGMENTED NEUTROPHILS % (MAN) 70 % (42-78); TOTAL CELLS COUNTED 50
[2017-07-19 05:39] LABS: ANISOCYTOSIS 1+; POIKILOCYTOSIS 1+; TOXIC GRANULATION 1+
[2017-07-19 05:40] LABS: BURR CELLS 1+; OVALOCYTES SLIGHT; PLATELET COMMENT DECREASED; SCHISTOCYTES SLIGHT; TEAR DROP CELLS SLIGHT
[2017-07-19] MEDS: CEFEPIME 2 GM/D5W RTU 2 GM/50 ML RTUPB IV SCH ×2 (06:38→18:20)
[2017-07-19 06:43] LABS: ANION GAP 4 (5-19)
--- NOTE | 2017-07-19 06:49 | PDOC PROGRESS REPORT ---
Subjective Progress Note for:: 07/19/17 Subjective:: Patient remains on BiPAP. is at bedside. He states that he is feeling stronger this morning. states he slept well. Nurses report no new issues. ROS: difficult to obtain due to BiPAP, but patient denies pain and says he is hungry. Reason For Visit: PNEUMONIA Physical Exam Vital Signs: Temp Pulse Resp BP Pulse Ox 99.1 F 115 H 34 H 132/77 H 92 07/19/17 04:00 07/19/17 01:15 07/19/17 04:46 07/18/17 17:48 07/19/17 04:46 Intake & Output 07/17/17 07/18/17 07/19/17 06:59 06:59 06:59 Intake Total 400 5322 700 Output Total 200 2100 700 Balance 200 3222 0 Weight 100 kg 97.3 kg General appearance: PRESENT: mild distress Head exam: PRESENT: normocephalic Respiratory exam: ABSENT: crackles, wheezes Cardiovascular exam: PRESENT: RRR, tachycardia GI/Abdominal exam: PRESENT: soft. ABSENT: tenderness Extremities exam: ABSENT: pedal edema Neurological exam: PRESENT: awake Psychiatric exam: PRESENT: appropriate affect Skin exam: PRESENT: normal color Results Laboratory Results: 07/19/17 04:14 07/19/17 04:14 07/18/17 07/19/17 07/19/17 08:26 04:14 04:14 WBC 2.7 L RBC 2.90 L Hgb 8.5 L Hct 25.4 L MCV 88 MCH 29.3 MCHC 33.5 RDW 17.5 H Plt Count 40 L Seg Neutrophils % Not Reportable Lymphocytes % Not Reportable Monocytes % Not Reportable Eosinophils % Not Reportable Basophils % Not Reportable Absolute Neutrophils Not Reportable Absolute Lymphocytes Not Reportable Absolute Monocytes Not Reportable Absolute Eosinophils Not Reportable Absolute Basophils Not Reportable Carbonic Acid 1.11 HCO3/H2CO3 Ratio 23:1 ABG pH 7.47 H ABG pCO2 36.9 ABG pO2 65.4 L ABG HCO3 26.4 H ABG O2 Saturation 94.2 ABG Base Excess 2.8 FiO2 100% Sodium 137.9 Potassium 3.7 Chloride 104 Carbon Dioxide 30 Anion Gap 4 L BUN 16 Creatinine 0.55 Est GFR ( Amer) > 60 Est GFR (Non-Af Amer) > 60 Glucose 119 H Calcium 7.6 L Magnesium 2.1 Total Bilirubin 0.4 AST 63 H ALT 50 Alkaline Phosphatase 113 Total Protein 4.4 L Albumin 2.5 L 07/19/17 04:40 WBC RBC Hgb Hct MCV MCH MCHC RDW Plt Count Seg Neutrophils % Lymphocytes % Monocytes % Eosinophils % Basophils % Absolute Neutrophils Absolute Lymphocytes Absolute Monocytes Absolute Eosinophils Absolute Basophils Carbonic Acid Cancelled HCO3/H2CO3 Ratio Cancelled ABG pH Cancelled ABG pCO2 Cancelled ABG pO2 Cancelled ABG HCO3 Cancelled ABG O2 Saturation Cancelled ABG Base Excess Cancelled FiO2 Cancelled Sodium Potassium Chloride Carbon Dioxide Anion Gap BUN Creatinine Est GFR ( Amer) Est GFR (Non-Af Amer) Glucose Calcium Magnesium Total Bilirubin AST ALT Alkaline Phosphatase Total Protein Albumin Impressions: Chest/Abdomen CTA 07/17/17 00:00 IMPRESSION: 1. There is no evidence of pulmonary emboli. 2. Extensive ground-glass opacification is present in the lungs suggestive of chronic interstitial disease, interstitial edema, atypical pneumonia. This is a relatively nonspecific finding. This has advanced significantly since 2017, however. 3. There are sclerotic lesions in multiple bones concerning for metastases. Does patient have a known neoplasm? Assessment & Plan - Diagnosis (1) Prostate cancer Is this a current diagnosis for this admission?: Yes Plan: No further treatment planned for another 3 weeks. He has known bone mets. (2) Pancytopenia Is this a current diagnosis for this admission?: Yes Plan: Improving. He is no longer neutropenic. Will Stop neutropenia precautions. (3) Pneumonia Qualifiers: Pneumonia type: due to unspecified organism Laterality: bilateral Lung location: unspecified part of lung Qualified Code(s): J18.9 - Pneumonia, unspecified organism Is this a current diagnosis for this admission?: Yes Plan: Continue current meds. Cultures NGTD. (4) Anxiety Is this a current diagnosis for this admission?: Yes Plan: Improved. Continue Ativan and morphine PRN. - Plan Summary Plan Summary: Overall, patient appears to be improving. Await this mornings ABG. Hopefully, he will be able to come off BiPAP long enough to eat. I will continue to follow. Please call if needed.
--- NOTE | 2017-07-19 08:30 | RADIOLOGY REPORT (SQ) ---
EXAM DESCRIPTION: CHEST SINGLE VIEW COMPLETED DATE/TIME: 07/19/2017 6:57 am REASON FOR STUDY: pna COMPARISON: 07/17/2017, 07/18/2017 EXAM PARAMETERS: NUMBER OF VIEWS: One view. TECHNIQUE: Single frontal radiographic view of the chest acquired. RADIATION DOSE: NA LIMITATIONS: None. FINDINGS: LUNGS AND PLEURA: Diffuse fibronodular opacities without improvement. No pneumothorax. MEDIASTINUM AND HILAR STRUCTURES: No masses. Contour normal. HEART AND VASCULAR STRUCTURES: Heart normal in size. Normal vasculature. BONES: Diffuse bony sclerotic lesions worrisome for metastatic disease. HARDWARE: None in the chest. OTHER: No other significant finding. IMPRESSION: No improvement in the appearance of the lungs. Diffuse bony metastatic disease. TECHNICAL DOCUMENTATION: JOB ID: [id number] [employer]- All Rights Reserved Reading location - IP/workstation name: [email or web address]
[2017-07-19 08:35] LABS: ARTERIAL BLOOD BASE EXCESS 1.3 mmol/L; ARTERIAL BLOOD H2CO3 1.11 mmol/L (1.05-1.35); ARTERIAL BLOOD HCO3 25.2 mmol/L (20-26); ARTERIAL BLOOD O2 SATURATION 92.4 % (94-98); ARTERIAL BLOOD PCO2 36.8 mmHg (35-45); ARTERIAL BLOOD PH 7.45 (7.35-7.45); ARTERIAL BLOOD PO2 60.4 mmHg (80-100); ARTERIAL BLOOD TOTAL CO2 26.3 mmol/L (23-27)
[2017-07-19 08:36] LABS: ARTERIAL BLOOD FIO2 70%
[2017-07-19] MEDS: LEVOFLOXACIN 500 MG/D5W RTU 500 MG/100 ML RTUPB IV SCH (08:54)
[2017-07-19] MEDS: GUAIFENESIN 600 MG TABLET.SA PO SCH ×2 (09:55→22:34)
[2017-07-19] MEDS: MULTIVITAMIN TABLET PO SCH (09:55)
[2017-07-19] MEDS: FAMOTIDINE INJ/PF 20 MG/2 ML SDV IV SCH ×2 (09:56→22:33)
[2017-07-19] MEDS: BUDESONIDE/FORMOTEROL 160-4.5 MCG 60 PUFF/6 GM MDI IH SCH ×2 (10:04→18:22)
--- NOTE | 2017-07-19 15:26 | PDOC PROGRESS REPORT ---
Subjective Progress Note for:: 07/19/17 Subjective:: Patient was seen in ICU, presently on BiPAP to support breathing, he has extensive pneumonia, he developed pancytopenia secondary to chemotherapy, on chemotherapy for metastatic prostate cancer not presently requiring invasive mechanical ventilation Reason For Visit: PNEUMONIA Physical Exam Vital Signs: Temp Pulse Resp BP Pulse Ox 98.9 F 113 H 39 H 132/77 H 94 07/19/17 12:00 07/19/17 14:34 07/19/17 14:34 07/18/17 17:48 07/19/17 14:34 Intake & Output 07/18/17 07/19/17 07/20/17 06:59 06:59 06:59 Intake Total 5322 1664 900 Output Total 2100 700 375 Balance 3222 964 525 Weight 97.3 kg 99.4 kg General appearance: PRESENT: mild distress Head exam: PRESENT: atraumatic, normocephalic Ear exam: PRESENT: normal external ear exam Respiratory exam: PRESENT: rhonchi Cardiovascular exam: PRESENT: RRR, +S1, +S2 Pulses: PRESENT: normal dorsalis pedis pul, +2 pedal pulses bilateral Vascular exam: PRESENT: normal capillary refill GI/Abdominal exam: PRESENT: normal bowel sounds, soft Rectal exam: PRESENT: deferred Neurological exam: PRESENT: alert. ABSENT: motor sensory deficit Skin exam: PRESENT: dry, intact, warm. ABSENT: cyanosis, rash Results Laboratory Results: 07/19/17 04:14 07/19/17 04:14 07/19/17 07/19/17 07/19/17 04:14 04:14 04:40 WBC 2.7 L RBC 2.90 L Hgb 8.5 L Hct 25.4 L MCV 88 MCH 29.3 MCHC 33.5 RDW 17.5 H Plt Count 40 L Seg Neutrophils % Not Reportable Lymphocytes % Not Reportable Monocytes % Not Reportable Eosinophils % Not Reportable Basophils % Not Reportable Absolute Neutrophils Not Reportable Absolute Lymphocytes Not Reportable Absolute Monocytes Not Reportable Absolute Eosinophils Not Reportable Absolute Basophils Not Reportable Carbonic Acid Cancelled HCO3/H2CO3 Ratio Cancelled ABG pH Cancelled ABG pCO2 Cancelled ABG pO2 Cancelled ABG HCO3 Cancelled ABG O2 Saturation Cancelled ABG Base Excess Cancelled FiO2 Cancelled Sodium 137.9 Potassium 3.7 Chloride 104 Carbon Dioxide 30 Anion Gap 4 L BUN 16 Creatinine 0.55 Est GFR ( Amer) > 60 Est GFR (Non-Af Amer) > 60 Glucose 119 H Calcium 7.6 L Magnesium 2.1 Total Bilirubin 0.4 AST 63 H ALT 50 Alkaline Phosphatase 113 Total Protein 4.4 L Albumin 2.5 L 07/19/17 08:05 WBC RBC Hgb Hct MCV MCH MCHC RDW Plt Count Seg Neutrophils % Lymphocytes % Monocytes % Eosinophils % Basophils % Absolute Neutrophils Absolute Lymphocytes Absolute Monocytes Absolute Eosinophils Absolute Basophils Carbonic Acid 1.11 HCO3/H2CO3 Ratio 22:1 ABG pH 7.45 ABG pCO2 36.8 ABG pO2 60.4 L ABG HCO3 25.2 ABG O2 Saturation 92.4 L ABG Base Excess 1.3 FiO2 70% Sodium Potassium Chloride Carbon Dioxide Anion Gap BUN Creatinine Est GFR ( Amer) Est GFR (Non-Af Amer) Glucose Calcium Magnesium Total Bilirubin AST ALT Alkaline Phosphatase Total Protein Albumin Impressions: Chest/Abdomen CTA 07/17/17 00:00 IMPRESSION: 1. There is no evidence of pulmonary emboli. 2. Extensive ground-glass opacification is present in the lungs suggestive of chronic interstitial disease, interstitial edema, atypical pneumonia. This is a relatively nonspecific finding. This has advanced significantly since 2017, however. 3. There are sclerotic lesions in multiple bones concerning for metastases. Does patient have a known neoplasm? Chest X-Ray 07/19/17 06:00 IMPRESSION: No improvement in the appearance of the lungs. Diffuse bony metastatic disease. Assessment & Plan - Diagnosis (1) Pancytopenia Is this a current diagnosis for this admission?: Yes (2) Pneumonia Qualifiers: Pneumonia type: due to unspecified organism Laterality: bilateral Lung location: unspecified part of lung Qualified Code(s): J18.9 - Pneumonia, unspecified organism Is this a current diagnosis for this admission?: Yes Plan: Continue IV antibiotic (3) Prostate cancer Is this a current diagnosis for this admission?: Yes (4) Acute hypoxemic respiratory failure Is this a current diagnosis for this admission?: Yes Plan: Continue BiPAP machine
[2017-07-19] MEDS: NORMAL SALINE 1000 ML 1,000 ML IV PRN (18:19)
[2017-07-19] MEDS: TAMSULOSIN HCL 0.4 MG CAP.SR.24H PO SCH (18:23)
[2017-07-20] MEDS: LORAZEPAM INJ 2 MG/1 ML VIAL IV PRN ×4 (01:16→17:34)
[2017-07-20] MEDS: MORPHINE SULFATE 10 MG/ML INJ IV PRN ×4 (01:17→17:35)
[2017-07-20] MEDS: VANCOMYCIN HCL 1,500 MG in DEXTROSE 5%-WATER 250 ML IV SCH ×3 (01:18→17:19)
[2017-07-20] MEDS: IPRATROPIUM/ALBUTEROL 0.5-2.5 MG/3 ML AMPUL NEB SCH ×4 (02:12→19:38)
[2017-07-20 04:27] LABS: HEMATOCRIT 27.1 % (37.9-51.0); HEMOGLOBIN 8.9 g/dL (13.5-17.0); MEAN CORPUSCULAR HEMOGLOBIN 28.9 pg (27.0-33.4); MEAN CORPUSCULAR HGB CONC 32.9 g/dL (32.0-36.0); MEAN CORPUSCULAR VOLUME 88 fl (80-97); RED BLOOD COUNT 3.08 10^6/uL (4.35-5.55); RED CELL DISTRIBUTION WIDTH 18.1 % (11.5-14.0)
[2017-07-20 04:29] LABS: ARTERIAL BLOOD BASE EXCESS -0.5 mmol/L; ARTERIAL BLOOD HCO3 23.5 mmol/L (20-26); ARTERIAL BLOOD O2 SATURATION 94.8 % (94-98); ARTERIAL BLOOD PCO2 36.7 mmHg (35-45); ARTERIAL BLOOD PH 7.42 (7.35-7.45); ARTERIAL BLOOD PO2 71.2 mmHg (80-100); ARTERIAL BLOOD TOTAL CO2 24.6 mmol/L (23-27)
[2017-07-20 04:31] LABS: ARTERIAL BLOOD FIO2 90%
[2017-07-20 04:32] LABS: PLATELET COUNT 43 10^3/uL (150-450)
[2017-07-20 04:56] LABS: ABSOLUTE LYMPHOCYTES# (MANUAL) 0.1 10^3/uL (0.5-4.7); ABSOLUTE MONOCYTES # (MANUAL) 0.5 10^3/uL (0.1-1.4); ABSOLUTE NEUTROPHILS# (MANUAL) 8.4 10^3/uL (1.7-8.2); BASOPHILS % (MANUAL) 0 % (0-2); EOSINOPHILS % (MANUAL) 1 % (0-6); LYMPHOCYTES % (MANUAL) 1 % (13-45); MONOCYTES % (MANUAL) 5 % (3-13); SEGMENTED NEUTROPHILS % (MAN) 76 % (42-78); TOTAL CELLS COUNTED 100
[2017-07-20 05:01] LABS: PLATELET COMMENT DECREASED; TOXIC GRANULATION 1+; TOXIC VACUOLATION PRESENT
[2017-07-20 05:03] LABS: PLATELET LARGE PRESENT
[2017-07-20 05:05] LABS: ANISOCYTOSIS 2+; BURR CELLS SLIGHT; HYPOCHROMASIA 1+; OVALOCYTES SLIGHT; POIKILOCYTOSIS SLIGHT
[2017-07-20 05:07] LABS: BAND NEUTROPHILS % (MANUAL) 16 % (3-5); MYELOCYTES % (MANUAL) 1 % (0)
[2017-07-20] MEDS: CEFEPIME 2 GM/D5W RTU 2 GM/50 ML RTUPB IV SCH ×2 (05:45→17:18)
[2017-07-20 05:48] LABS: ALANINE AMINOTRANSFERASE 59 U/L (21-72); ALBUMIN 2.7 g/dL (3.5-5.0); ALKALINE PHOSPHATASE 176 U/L (38-126); ANION GAP 7 (5-19); ASPARTATE AMINO TRANSFERASE 99 U/L (17-59); BILIRUBIN,DIRECT 0.4 mg/dL (0.0-0.4); BILIRUBIN,TOTAL 0.7 mg/dL (0.2-1.3); BLOOD UREA NITROGEN 20 mg/dL (7-20); CALCIUM 8.4 mg/dL (8.4-10.2); CARBON DIOXIDE 30 mmol/L (22-30); CHLORIDE 104 mmol/L (98-107); GLUCOSE 127 mg/dL (75-110); PHOSPHORUS 2.6 mg/dL (2.5-4.5); POTASSIUM 3.9 mmol/L (3.6-5.0); SODIUM 141.3 mmol/L (137-145); TOTAL PROTEIN 5.2 g/dL (6.3-8.2)
--- NOTE | 2017-07-20 07:24 | RADIOLOGY REPORT (SQ) ---
EXAM DESCRIPTION: CHEST SINGLE VIEW CLINICAL HISTORY: 76 years Male, resp failure/pna/ARDS COMPARISON: 4.1.18 NUMBER OF VIEWS/TECHNIQUE: 1/AP LIMITATIONS: None. FINDINGS: Mixed severe interstitial and moderate airspace opacities, normal cardiac silhouette, and known sclerotic bone metastases. No pneumothorax. No acute bone defect. IMPRESSION: Worsened mixed interstitial and airspace opacities.
--- NOTE | 2017-07-20 07:34 | PDOC PROGRESS REPORT ---
Subjective Progress Note for:: 07/20/17 Subjective:: Patient remains on BiPAP. He is sleepy, but tries to speak. He denies any pain. He states that he is comfortable with the mask on. Nurses report no new problems. He desats every time the mask is removed. He has not been able to eat anything in the last 24 hours. He continues to void without difficulty. ROS: Difficult to asses, but as above. Reason For Visit: PNEUMONIA Physical Exam Vital Signs: Temp Pulse Resp BP Pulse Ox 98.4 F 115 H 27 H 132/77 H 95 07/20/17 02:00 07/20/17 02:00 07/20/17 04:10 07/18/17 17:48 07/20/17 04:10 Intake & Output 07/19/17 07/20/17 07/21/17 06:59 06:59 06:59 Intake Total 1664 2739 Output Total 700 705 Balance 964 2034 Weight 99.4 kg 99.3 kg General appearance: PRESENT: no acute distress, well-nourished Head exam: PRESENT: normocephalic Mouth exam: PRESENT: dry mucosa Respiratory exam: PRESENT: clear to auscultation kristi Cardiovascular exam: PRESENT: RRR, tachycardia GI/Abdominal exam: PRESENT: soft. ABSENT: tenderness Extremities exam: ABSENT: pedal edema Neurological exam: PRESENT: awake Psychiatric exam: PRESENT: appropriate affect Skin exam: PRESENT: normal color Results Laboratory Results: 07/20/17 03:53 07/20/17 03:53 07/19/17 07/20/17 07/20/17 08:05 03:53 03:53 WBC 9.0 D RBC 3.08 L Hgb 8.9 L Hct 27.1 L MCV 88 MCH 28.9 MCHC 32.9 RDW 18.1 H Plt Count 43 L Seg Neutrophils % Not Reportable Lymphocytes % Not Reportable Monocytes % Not Reportable Eosinophils % Not Reportable Basophils % Not Reportable Absolute Neutrophils Not Reportable Absolute Lymphocytes Not Reportable Absolute Monocytes Not Reportable Absolute Eosinophils Not Reportable Absolute Basophils Not Reportable Carbonic Acid 1.11 HCO3/H2CO3 Ratio 22:1 ABG pH 7.45 ABG pCO2 36.8 ABG pO2 60.4 L ABG HCO3 25.2 ABG O2 Saturation 92.4 L ABG Base Excess 1.3 FiO2 70% Sodium 141.3 Potassium 3.9 Chloride 104 Carbon Dioxide 30 Anion Gap 7 BUN 20 Creatinine 0.59 Est GFR ( Amer) > 60 Est GFR (Non-Af Amer) > 60 Glucose 127 H Calcium 8.4 Phosphorus 2.6 Magnesium 2.3 Total Bilirubin 0.7 AST 99 H ALT 59 Alkaline Phosphatase 176 H Total Protein 5.2 L Albumin 2.7 L 07/20/17 04:04 WBC RBC Hgb Hct MCV MCH MCHC RDW Plt Count Seg Neutrophils % Lymphocytes % Monocytes % Eosinophils % Basophils % Absolute Neutrophils Absolute Lymphocytes Absolute Monocytes Absolute Eosinophils Absolute Basophils Carbonic Acid 1.10 HCO3/H2CO3 Ratio 21:1 ABG pH 7.42 ABG pCO2 36.7 ABG pO2 71.2 L ABG HCO3 23.5 ABG O2 Saturation 94.8 ABG Base Excess -0.5 FiO2 90% Sodium Potassium Chloride Carbon Dioxide Anion Gap BUN Creatinine Est GFR ( Amer) Est GFR (Non-Af Amer) Glucose Calcium Phosphorus Magnesium Total Bilirubin AST ALT Alkaline Phosphatase Total Protein Albumin 07/17/17 05:45 Sputum Gram Stain - Final 07/17/17 05:45 Sputum Sputum Culture - Final Haemophilus Influenzae Normal Ania 07/20/17 03:53 NT-Pro-B Natriuret Pep 1580 H Impressions: Chest/Abdomen CTA 07/17/17 00:00 IMPRESSION: 1. There is no evidence of pulmonary emboli. 2. Extensive ground-glass opacification is present in the lungs suggestive of chronic interstitial disease, interstitial edema, atypical pneumonia. This is a relatively nonspecific finding. This has advanced significantly since 2017, however. 3. There are sclerotic lesions in multiple bones concerning for metastases. Does patient have a known neoplasm? Chest X-Ray 07/20/17 06:00 IMPRESSION: Worsened mixed interstitial and airspace opacities. Assessment & Plan - Diagnosis (1) Prostate cancer Is this a current diagnosis for this admission?: Yes Plan: No further treatment for the next 2 weeks. However, he has been responding well to recent therapy. (2) Pancytopenia Is this a current diagnosis for this admission?: Yes Plan: Now resolving. ANC normal. No indication for blood transfusions. (3) Pneumonia Qualifiers: Pneumonia type: due to unspecified organism Laterality: bilateral Lung location: unspecified part of lung Qualified Code(s): J18.9 - Pneumonia, unspecified organism Is this a current diagnosis for this admission?: Yes Plan: Patient remains on BiPAP. He again requests to hold off on ventilation if possible. H. influenza and Daria in recent sputum cultures. Consider changing antibiotics to narrow coverage. (4) Anxiety Is this a current diagnosis for this admission?: Yes Plan: Managed well with ativan and morphine. - Plan Summary Plan Summary: On paper, he continues to improve. His I/O's are positive and he may benefit from some diuresis. I will defer to Dr. Hernandez. Please call me if needed.
[2017-07-20] MEDS ORDERED: FUROSEMIDE INJ/PF 20 MG/2 ML SDV ONE (08:22)
[2017-07-20] MEDS: LEVOFLOXACIN 500 MG/D5W RTU 500 MG/100 ML RTUPB IV SCH (08:26)
[2017-07-20] MEDS ORDERED: FUROSEMIDE INJ/PF 20 MG/2 ML SDV IV ONE (08:45)
[2017-07-20 09:20] LABS: AMORPHOUS SEDIMENT,URINE TRACE /HPF
[2017-07-20] MEDS ORDERED: PROPOFOL 100 ML IV ONE (09:21)
[2017-07-20 09:25] LABS: COLOR,URINE YELLOW
[2017-07-20 09:26] LABS: APPEARANCE,URINE CLOUDY; BILIRUBIN,URINE NEGATIVE (NEGATIVE); GLUCOSE, URINE NEGATIVE (NEGATIVE); KETONES,URINE NEGATIVE (NEGATIVE); LEUKOCYTE ESTERASE,URINE NEGATIVE (NEGATIVE); NITRITE,URINE NEGATIVE (NEGATIVE); PROTEIN,URINE 30 mg/dL (NEGATIVE); UROBILINOGEN,URINE NEGATIVE mg/dL (<2.0)
[2017-07-20] MEDS ORDERED: PHARMACY COMMUNICATION ORDER MC NR (09:30)
[2017-07-20] MEDS ORDERED: ACETAMINOPHEN 325 MG TABLET NG PRN (10:00)
[2017-07-20] MEDS ORDERED: MIDAZOLAM HCL 50 MG/100 ML RTUINJ IV ONE (10:09)
[2017-07-20] MEDS ORDERED: ONDANSETRON 4 MG TAB.RAPDIS NG PRN (10:30)
--- NOTE | 2017-07-20 10:37 | RADIOLOGY REPORT (SQ) ---
EXAM DESCRIPTION: CHEST SINGLE VIEW COMPLETED DATE/TIME: 07/20/2017 10:29 am REASON FOR STUDY: ETT and NG tube placement COMPARISON: CT chest 05/25/2017, 07/17/2017 Chest films 07/16/2017, 07/18/2017, 07/19/2017, 07/20/2017 0 EXAM PARAMETERS: NUMBER OF VIEWS: One view. TECHNIQUE: Single frontal radiographic view of the chest acquired. RADIATION DOSE: NA LIMITATIONS: None. FINDINGS: LUNGS AND PLEURA: Diffuse increased interstitial markings throughout both lungs is stable compared to plain films dating back to 07/16/2017. Pattern is more widespread than on chest CT 05/25/19 18. No pleural effusion. No pneumothorax. MEDIASTINUM AND HILAR STRUCTURES: No masses. Contour normal. HEART AND VASCULAR STRUCTURES: Heart normal in size. Normal vasculature. BONES: Multiple sclerotic bony metastatic lesions are present HARDWARE: Endotracheal tube tip 5 to 6 cm above the emmy. Nasogastric tube tip and side port in th e stomach. OTHER: No other significant finding. IMPRESSION: Diffuse increased interstitial markings throughout the lungs, similar by plain film dati ng back to 07/16/2017. Endotracheal tube tip 5 cm to 6 cm above the emmy. TECHNICAL DOCUMENTATION: JOB ID: [id number] Amanda Huff D[employer]- All Rights Reserved Reading location - IP/workstation name: [email or web address]
[2017-07-20 11:00] LABS: ARTERIAL BLOOD H2CO3 1.83 mmol/L (1.05-1.35); ARTERIAL BLOOD HCO3 30.3 mmol/L (20-26); ARTERIAL BLOOD O2 SATURATION 97.5 % (94-98); ARTERIAL BLOOD PCO2 60.7 mmHg (35-45); ARTERIAL BLOOD PH 7.32 (7.35-7.45); ARTERIAL BLOOD PO2 109.2 mmHg (80-100); ARTERIAL BLOOD TOTAL CO2 32.2 mmol/L (23-27)
[2017-07-20] MEDS ORDERED: GUAIFENESIN SYRP 200 MG/10 ML UDC NG ONE (11:00)
[2017-07-20 11:01] LABS: ARTERIAL BLOOD FIO2 100%
--- NOTE | 2017-07-20 11:03 | PDOC PROGRESS REPORT ---
Subjective Progress Note for:: 07/20/17 Subjective:: Patient's currently still on a BiPAPWith the respiratory rate is still 30 and still difficult to wean her from the BiPAP Patient's denied any chest pain No fever Discussed with the and the bedside and discussed with the pulmonary the patient's continues to be on a BiPAP and patient still have a respiratory rate at high according to the pulmonary might need to be intubated and discussed with the about also to Patient also seen by the oncology Reason For Visit: PNEUMONIA Physical Exam Vital Signs: Temp Pulse Resp BP Pulse Ox 98.4 F 105 H 30 H 149/44 H 96 07/20/17 07:58 07/20/17 08:16 07/20/17 08:51 07/20/17 07:58 07/20/17 09:36 Intake & Output 07/19/17 07/20/17 07/21/17 06:59 06:59 06:59 Intake Total 1664 2739 Output Total 700 705 Balance 964 2034 Weight 99.4 kg 99.3 kg Physical Exam: Currently on a BiPAP General appearance: PRESENT: mild distress Eye exam: PRESENT: PERRLA Mouth exam: PRESENT: neck supple Respiratory exam: PRESENT: decreased breath sounds Cardiovascular exam: PRESENT: +S1, +S2 GI/Abdominal exam: PRESENT: normal bowel sounds, soft Extremities exam: ABSENT: pedal edema Neurological exam: PRESENT: alert, awake, oriented to person Psychiatric exam: PRESENT: anxious Skin exam: PRESENT: dry Results Laboratory Results: 07/20/17 03:53 07/20/17 03:53 07/20/17 07/20/17 07/20/17 03:53 03:53 04:04 WBC 9.0 D RBC 3.08 L Hgb 8.9 L Hct 27.1 L MCV 88 MCH 28.9 MCHC 32.9 RDW 18.1 H Plt Count 43 L Seg Neutrophils % Not Reportable Lymphocytes % Not Reportable Monocytes % Not Reportable Eosinophils % Not Reportable Basophils % Not Reportable Absolute Neutrophils Not Reportable Absolute Lymphocytes Not Reportable Absolute Monocytes Not Reportable Absolute Eosinophils Not Reportable Absolute Basophils Not Reportable Carbonic Acid 1.10 HCO3/H2CO3 Ratio 21:1 ABG pH 7.42 ABG pCO2 36.7 ABG pO2 71.2 L ABG HCO3 23.5 ABG O2 Saturation 94.8 ABG Base Excess -0.5 FiO2 90% Sodium 141.3 Potassium 3.9 Chloride 104 Carbon Dioxide 30 Anion Gap 7 BUN 20 Creatinine 0.59 Est GFR ( Amer) > 60 Est GFR (Non-Af Amer) > 60 Glucose 127 H Calcium 8.4 Phosphorus 2.6 Magnesium 2.3 Total Bilirubin 0.7 AST 99 H ALT 59 Alkaline Phosphatase 176 H Total Protein 5.2 L Albumin 2.7 L Urine Color Urine Appearance Urine pH Ur Specific [place] Urine Protein Urine Glucose (UA) Urine Ketones Urine Blood Urine Nitrite Ur Leukocyte Esterase Urine WBC (Auto) Urine RBC (Auto) 07/20/17 08:38 WBC RBC Hgb Hct MCV MCH MCHC RDW Plt Count Seg Neutrophils % Lymphocytes % Monocytes % Eosinophils % Basophils % Absolute Neutrophils Absolute Lymphocytes Absolute Monocytes Absolute Eosinophils Absolute Basophils Carbonic Acid HCO3/H2CO3 Ratio ABG pH ABG pCO2 ABG pO2 ABG HCO3 ABG O2 Saturation ABG Base Excess FiO2 Sodium Potassium Chloride Carbon Dioxide Anion Gap BUN Creatinine Est GFR ( Amer) Est GFR (Non-Af Amer) Glucose Calcium Phosphorus Magnesium Total Bilirubin AST ALT Alkaline Phosphatase Total Protein Albumin Urine Color YELLOW Urine Appearance CLOUDY Urine pH 6.0 Ur Specific [place] 1.020 Urine Protein 30 H Urine Glucose (UA) NEGATIVE Urine Ketones NEGATIVE Urine Blood NEGATIVE Urine Nitrite NEGATIVE Ur Leukocyte Esterase NEGATIVE Urine WBC (Auto) 4 Urine RBC (Auto) 2 07/18/17 00:15 Tracheal Aspirate Gram Stain - Final 07/18/17 00:15 Tracheal Aspirate Sputum Culture - Final C.albicans/C.dubliniensis Reduced Normal Ania 07/17/17 05:45 Sputum Gram Stain - Final 07/17/17 05:45 Sputum Sputum Culture - Final Haemophilus Influenzae Normal Ania 07/20/17 03:53 NT-Pro-B Natriuret Pep 1580 H Impressions: Chest/Abdomen CTA 07/17/17 00:00 IMPRESSION: 1. There is no evidence of pulmonary emboli. 2. Extensive ground-glass opacification is present in the lungs suggestive of chronic interstitial disease, interstitial edema, atypical pneumonia. This is a relatively nonspecific finding. This has advanced significantly since 2017, however. 3. There are sclerotic lesions in multiple bones concerning for metastases. Does patient have a known neoplasm? Chest X-Ray 07/20/17 06:00 IMPRESSION: Worsened mixed interstitial and airspace opacities. Assessment & Plan - Diagnosis (1) Pneumonia Qualifiers: Pneumonia type: due to unspecified organism Laterality: bilateral Lung location: unspecified part of lung Qualified Code(s): J18.9 - Pneumonia, unspecified organism Is this a current diagnosis for this admission?: Yes Plan: Very extensive pneumonia with the broad-spectrum antibiotic (2) Shortness of breath Is this a current diagnosis for this admission?: Yes Plan: Most likely from underlying pneumonia with some other multifactorial due to the anemia may be of fluid overload due to the blood transfusions we also get the CT angiogram to rule out PE and also order the echocardiogram and continues IV antibiotic (3) Prostate cancer Is this a current diagnosis for this admission?: Yes (4) Pancytopenia Is this a current diagnosis for this admission?: Yes Plan: Currently follow with oncology (5) Acute hypoxemic respiratory failure Is this a current diagnosis for this admission?: Yes Plan: Currently follow with pulmonary - Time Time Spent with patient: 15-24 minutes Medications reviewed and adjusted accordingly: Yes Anticipated discharge: Other Within: Other - Inpatient Certification Medical Necessity: Need Close Monitoring Due to Risk of Patient Decompensation, Need for IV Antibiotics Post Hospital Care: D/C [employer] Documentation - Plan Summary Plan Summary: Very extensive discussions with the regarding the patient's current conditions with the stage IV prostate cancers with extensive pneumonia and multiple other comorbidity overall prognosis is not very good
[2017-07-20] MEDS ORDERED: PHENYLEPHRINE HCL INJ/PF 10 MG/1 ML SDV ONE ×2 (11:23→20:59)
[2017-07-20] MEDS: BUDESONIDE/FORMOTEROL 160-4.5 MCG 60 PUFF/6 GM MDI IH SCH ×2 (12:08→17:24)
[2017-07-20] MEDS: FAMOTIDINE INJ/PF 20 MG/2 ML SDV IV SCH ×2 (12:14→21:28)
[2017-07-20] MEDS: MULTIVITAMINS W-IRON TABLET, CHEWABLE NG SCH (12:15)
--- NOTE | 2017-07-20 12:35 | PDOC PROGRESS REPORT ---
Subjective Progress Note for:: 07/19/17 Subjective:: struggling but does not want intubation Reason For Visit: PNEUMONIA Physical Exam Vital Signs: Temp Pulse Resp BP Pulse Ox 98.4 F 105 H 30 H 149/44 H 100 07/20/17 07:58 07/20/17 08:16 07/20/17 08:51 07/20/17 07:58 07/20/17 11:52 Intake & Output 07/19/17 07/20/17 07/21/17 06:59 06:59 06:59 Intake Total 1664 2739 Output Total 700 705 Balance 964 2034 Weight 99.4 kg 99.3 kg General appearance: PRESENT: cooperative, disheveled, mild distress Head exam: PRESENT: atraumatic, normocephalic Eye exam: PRESENT: conjunctiva pale, EOMI. ABSENT: nystagmus, periorbital swelling, scleral icterus Mouth exam: PRESENT: dry mucosa, neck supple, tongue midline Neck exam: ABSENT: carotid bruit, JVD, lymphadenopathy, thyromegaly, tracheal deviation, tracheostomy - [id number] Respiratory exam: PRESENT: decreased breath sounds, prolonged expiratory phas, rales, rhonchi, symmetrical, tachypnea, wheezes. ABSENT: retraction, stridor, unlabored Cardiovascular exam: PRESENT: RRR, +S1, +S2 Pulses: PRESENT: normal radial pulses GI/Abdominal exam: PRESENT: diminished bowel sounds, soft Extremities exam: ABSENT: calf tenderness, clubbing, joint swelling Musculoskeletal exam: ABSENT: deformity, dislocation Neurological exam: PRESENT: awake Skin exam: PRESENT: dry, warm Results Laboratory Results: 07/20/17 03:53 07/20/17 03:53 07/20/17 07/20/17 07/20/17 03:53 03:53 04:04 WBC 9.0 D RBC 3.08 L Hgb 8.9 L Hct 27.1 L MCV 88 MCH 28.9 MCHC 32.9 RDW 18.1 H Plt Count 43 L Seg Neutrophils % Not Reportable Lymphocytes % Not Reportable Monocytes % Not Reportable Eosinophils % Not Reportable Basophils % Not Reportable Absolute Neutrophils Not Reportable Absolute Lymphocytes Not Reportable Absolute Monocytes Not Reportable Absolute Eosinophils Not Reportable Absolute Basophils Not Reportable Carbonic Acid 1.10 HCO3/H2CO3 Ratio 21:1 ABG pH 7.42 ABG pCO2 36.7 ABG pO2 71.2 L ABG HCO3 23.5 ABG O2 Saturation 94.8 ABG Base Excess -0.5 FiO2 90% Sodium 141.3 Potassium 3.9 Chloride 104 Carbon Dioxide 30 Anion Gap 7 BUN 20 Creatinine 0.59 Est GFR ( Amer) > 60 Est GFR (Non-Af Amer) > 60 Glucose 127 H Calcium 8.4 Phosphorus 2.6 Magnesium 2.3 Total Bilirubin 0.7 AST 99 H ALT 59 Alkaline Phosphatase 176 H Total Protein 5.2 L Albumin 2.7 L Urine Color Urine Appearance Urine pH Ur Specific [place] Urine Protein Urine Glucose (UA) Urine Ketones Urine Blood Urine Nitrite Ur Leukocyte Esterase Urine WBC (Auto) Urine RBC (Auto) 07/20/17 07/20/17 08:38 10:30 WBC RBC Hgb Hct MCV MCH MCHC RDW Plt Count Seg Neutrophils % Lymphocytes % Monocytes % Eosinophils % Basophils % Absolute Neutrophils Absolute Lymphocytes Absolute Monocytes Absolute Eosinophils Absolute Basophils Carbonic Acid 1.83 H HCO3/H2CO3 Ratio 16:1 ABG pH 7.32 L ABG pCO2 60.7 H ABG pO2 109.2 H ABG HCO3 30.3 H ABG O2 Saturation 97.5 ABG Base Excess 4.0 FiO2 100% Sodium Potassium Chloride Carbon Dioxide Anion Gap BUN Creatinine Est GFR ( Amer) Est GFR (Non-Af Amer) Glucose Calcium Phosphorus Magnesium Total Bilirubin AST ALT Alkaline Phosphatase Total Protein Albumin Urine Color YELLOW Urine Appearance CLOUDY Urine pH 6.0 Ur Specific [place] 1.020 Urine Protein 30 H Urine Glucose (UA) NEGATIVE Urine Ketones NEGATIVE Urine Blood NEGATIVE Urine Nitrite NEGATIVE Ur Leukocyte Esterase NEGATIVE Urine WBC (Auto) 4 Urine RBC (Auto) 2 07/18/17 00:15 Tracheal Aspirate Gram Stain - Final 07/18/17 00:15 Tracheal Aspirate Sputum Culture - Final C.albicans/C.dubliniensis Reduced Normal Ania 07/17/17 05:45 Sputum Gram Stain - Final 07/17/17 05:45 Sputum Sputum Culture - Final Haemophilus Influenzae Normal Ania 07/20/17 03:53 NT-Pro-B Natriuret Pep 1580 H Impressions: Chest/Abdomen CTA 07/17/17 00:00 IMPRESSION: 1. There is no evidence of pulmonary emboli. 2. Extensive ground-glass opacification is present in the lungs suggestive of chronic interstitial disease, interstitial edema, atypical pneumonia. This is a relatively nonspecific finding. This has advanced significantly since 2017, however. 3. There are sclerotic lesions in multiple bones concerning for metastases. Does patient have a known neoplasm? Chest X-Ray 07/20/17 06:00 IMPRESSION: Worsened mixed interstitial and airspace opacities. Assessment & Plan - Diagnosis (1) ARDS (adult respiratory distress syndrome) Is this a current diagnosis for this admission?: Yes Plan: see CT scan .PAO2/FIO2 ok for now if worse intubate TV 500 RR 14 FIO@100% PEEP7 PS10 ABG 30 min after intubation present to PCP as needed definitely no change last 24 hrs (2) Pancytopenia Is this a current diagnosis for this admission?: Yes Plan: chemotherapy see onc note (3) Pneumonia Qualifiers: Pneumonia type: due to unspecified organism Laterality: bilateral Lung location: unspecified part of lung Qualified Code(s): J18.9 - Pneumonia, unspecified organism Is this a current diagnosis for this admission?: Yes Plan: culture sputum
--- NOTE | 2017-07-20 12:38 | PDOC PROGRESS REPORT ---
Subjective Progress Note for:: 07/20/17 Subjective:: struggling Reason For Visit: PNEUMONIA Physical Exam Vital Signs: Temp Pulse Resp BP Pulse Ox 98.4 F 113 H 39 H 149/44 H 95 07/20/17 07:58 07/20/17 07:58 07/20/17 07:58 07/20/17 07:58 07/20/17 07:58 Intake & Output 07/19/17 07/20/17 07/21/17 06:59 06:59 06:59 Intake Total 1664 2739 Output Total 700 705 Balance 964 2034 Weight 99.4 kg 99.3 kg General appearance: PRESENT: disheveled, mild distress Head exam: PRESENT: atraumatic, normocephalic Eye exam: PRESENT: conjunctiva pale. ABSENT: nystagmus, periorbital swelling, scleral icterus Mouth exam: PRESENT: dry mucosa, neck supple, tongue midline Neck exam: ABSENT: carotid bruit, JVD, lymphadenopathy, thyromegaly, tracheal deviation, tracheostomy Respiratory exam: PRESENT: decreased breath sounds, prolonged expiratory phas, rales, rhonchi, symmetrical, tachypnea, wheezes. ABSENT: retraction, stridor, unlabored Cardiovascular exam: PRESENT: RRR, +S1, +S2, tachycardia Pulses: PRESENT: normal radial pulses GI/Abdominal exam: PRESENT: diminished bowel sounds, soft Extremities exam: ABSENT: calf tenderness, clubbing, joint swelling Musculoskeletal exam: ABSENT: ambulatory, deformity, dislocation Neurological exam: PRESENT: awake. ABSENT: alert Skin exam: PRESENT: dry, warm Results Laboratory Results: 07/20/17 03:53 07/20/17 03:53 07/19/17 07/20/17 07/20/17 08:05 03:53 03:53 WBC 9.0 D RBC 3.08 L Hgb 8.9 L Hct 27.1 L MCV 88 MCH 28.9 MCHC 32.9 RDW 18.1 H Plt Count 43 L Seg Neutrophils % Not Reportable Lymphocytes % Not Reportable Monocytes % Not Reportable Eosinophils % Not Reportable Basophils % Not Reportable Absolute Neutrophils Not Reportable Absolute Lymphocytes Not Reportable Absolute Monocytes Not Reportable Absolute Eosinophils Not Reportable Absolute Basophils Not Reportable Carbonic Acid 1.11 HCO3/H2CO3 Ratio 22:1 ABG pH 7.45 ABG pCO2 36.8 ABG pO2 60.4 L ABG HCO3 25.2 ABG O2 Saturation 92.4 L ABG Base Excess 1.3 FiO2 70% Sodium 141.3 Potassium 3.9 Chloride 104 Carbon Dioxide 30 Anion Gap 7 BUN 20 Creatinine 0.59 Est GFR ( Amer) > 60 Est GFR (Non-Af Amer) > 60 Glucose 127 H Calcium 8.4 Phosphorus 2.6 Magnesium 2.3 Total Bilirubin 0.7 AST 99 H ALT 59 Alkaline Phosphatase 176 H Total Protein 5.2 L Albumin 2.7 L 07/20/17 04:04 WBC RBC Hgb Hct MCV MCH MCHC RDW Plt Count Seg Neutrophils % Lymphocytes % Monocytes % Eosinophils % Basophils % Absolute Neutrophils Absolute Lymphocytes Absolute Monocytes Absolute Eosinophils Absolute Basophils Carbonic Acid 1.10 HCO3/H2CO3 Ratio 21:1 ABG pH 7.42 ABG pCO2 36.7 ABG pO2 71.2 L ABG HCO3 23.5 ABG O2 Saturation 94.8 ABG Base Excess -0.5 FiO2 90% Sodium Potassium Chloride Carbon Dioxide Anion Gap BUN Creatinine Est GFR ( Amer) Est GFR (Non-Af Amer) Glucose Calcium Phosphorus Magnesium Total Bilirubin AST ALT Alkaline Phosphatase Total Protein Albumin 07/17/17 05:45 Sputum Gram Stain - Final 07/17/17 05:45 Sputum Sputum Culture - Final Haemophilus Influenzae Normal Ania 07/20/17 03:53 NT-Pro-B Natriuret Pep 1580 H Impressions: Chest/Abdomen CTA 07/17/17 00:00 IMPRESSION: 1. There is no evidence of pulmonary emboli. 2. Extensive ground-glass opacification is present in the lungs suggestive of chronic interstitial disease, interstitial edema, atypical pneumonia. This is a relatively nonspecific finding. This has advanced significantly since 2017, however. 3. There are sclerotic lesions in multiple bones concerning for metastases. Does patient have a known neoplasm? Chest X-Ray 07/20/17 06:00 IMPRESSION: Worsened mixed interstitial and airspace opacities. Assessment & Plan - Diagnosis (1) ARDS (adult respiratory distress syndrome) Is this a current diagnosis for this admission?: Yes Plan: see CT scan .PAO2/FIO2 ok for now if worse intubate TV 500 RR 20 FIO@100% PEEP12 PS10 ABG 30 min after intubation definitely worse last 24 hrs (2) Pancytopenia Is this a current diagnosis for this admission?: Yes Plan: chemotherapy see onc note (3) Pneumonia Qualifiers: Pneumonia type: due to unspecified organism Laterality: bilateral Lung location: unspecified part of lung Qualified Code(s): J18.9 - Pneumonia, unspecified organism Is this a current diagnosis for this admission?: Yes Plan: culture sputum - Time Total Critical Time (Minutes): 100
[2017-07-20] MEDS: MIDAZOLAM HCL 50 MG/100 ML RTUINJ IV PRN ×2 (14:44→23:03)
[2017-07-20] MEDS ORDERED: SUCCINYLCHOLINE CHLORIDE INJ 200 MG/10 ML VIAL ONE (14:59)
[2017-07-20 16:58] LABS: ARTERIAL BLOOD BASE EXCESS 1.1 mmol/L; ARTERIAL BLOOD H2CO3 1.54 mmol/L (1.05-1.35); ARTERIAL BLOOD HCO3 27.2 mmol/L (20-26); ARTERIAL BLOOD O2 SATURATION 96.1 % (94-98); ARTERIAL BLOOD PH 7.35 (7.35-7.45); ARTERIAL BLOOD PO2 87.2 mmHg (80-100); ARTERIAL BLOOD TOTAL CO2 28.8 mmol/L (23-27)
[2017-07-20 16:59] LABS: ARTERIAL BLOOD FIO2 60%
[2017-07-20] MEDS: NORMAL SALINE 1000 ML 1,000 ML IV PRN (17:23)
[2017-07-20] MEDS: DEXTROSE 5%-WATER 250 ML with PHENYLEPHRINE HCL 40 MG IV PRN ×2 (21:04)
[2017-07-20] MEDS: GUAIFENESIN SYRP 200 MG/10 ML UDC NG SCH (21:28)
[2017-07-21] MEDS: DEXTROSE 5%-WATER 250 ML with PHENYLEPHRINE HCL 40 MG IV PRN ×10 (00:05→20:44)
[2017-07-21] MEDS: VANCOMYCIN HCL 1,500 MG in DEXTROSE 5%-WATER 250 ML IV SCH ×3 (01:24→17:47)
[2017-07-21] MEDS: IPRATROPIUM/ALBUTEROL 0.5-2.5 MG/3 ML AMPUL NEB SCH ×4 (01:56→19:41)
[2017-07-21 04:26] LABS: HEMATOCRIT 25.2 % (37.9-51.0); HEMOGLOBIN 8.2 g/dL (13.5-17.0); MEAN CORPUSCULAR HEMOGLOBIN 28.3 pg (27.0-33.4); MEAN CORPUSCULAR HGB CONC 32.6 g/dL (32.0-36.0); MEAN CORPUSCULAR VOLUME 87 fl (80-97); RED BLOOD COUNT 2.91 10^6/uL (4.35-5.55); WHITE BLOOD COUNT 14.6 10^3/uL (4.0-10.5)
[2017-07-21 04:36] LABS: BLOOD UREA NITROGEN 27 mg/dL (7-20); CALCIUM 7.4 mg/dL (8.4-10.2); CARBON DIOXIDE 29 mmol/L (22-30); GLUCOSE 156 mg/dL (75-110); POTASSIUM 3.9 mmol/L (3.6-5.0)
[2017-07-21 04:41] LABS: CHLORIDE 104 mmol/L (98-107); SODIUM 136.9 mmol/L (137-145)
[2017-07-21 04:43] LABS: ANION GAP 4 (5-19)
[2017-07-21 04:49] LABS: PLATELET COUNT 30 10^3/uL (150-450)
[2017-07-21 04:51] LABS: ABSOLUTE LYMPHOCYTES# (MANUAL) 0.4 10^3/uL (0.5-4.7); ABSOLUTE MONOCYTES # (MANUAL) 0.4 10^3/uL (0.1-1.4); ABSOLUTE NEUTROPHILS# (MANUAL) 13.7 10^3/uL (1.7-8.2); BAND NEUTROPHILS % (MANUAL) 1 % (3-5); BASOPHILS % (MANUAL) 0 % (0-2); EOSINOPHILS % (MANUAL) 0 % (0-6); LYMPHOCYTES % (MANUAL) 3 % (13-45); MONOCYTES % (MANUAL) 3 % (3-13); SEGMENTED NEUTROPHILS % (MAN) 93 % (42-78); TOTAL CELLS COUNTED 100
[2017-07-21 04:53] LABS: ANISOCYTOSIS 1+; OVALOCYTES SLIGHT; PLATELET COMMENT DECREASED; POIKILOCYTOSIS SLIGHT; POLYCHROMASIA SLIGHT
[2017-07-21] MEDS: CEFEPIME 2 GM/D5W RTU 2 GM/50 ML RTUPB IV SCH ×2 (05:02→17:06)
[2017-07-21] MEDS: PROPOFOL 100 ML IV PRN ×4 (05:22→23:30)
[2017-07-21 05:36] LABS: ARTERIAL BLOOD BASE EXCESS -1.5 mmol/L; ARTERIAL BLOOD H2CO3 1.47 mmol/L (1.05-1.35); ARTERIAL BLOOD HCO3 24.7 mmol/L (20-26); ARTERIAL BLOOD O2 SATURATION 96.8 % (94-98); ARTERIAL BLOOD PH 7.32 (7.35-7.45); ARTERIAL BLOOD PO2 96.9 mmHg (80-100); ARTERIAL BLOOD TOTAL CO2 26.2 mmol/L (23-27)
[2017-07-21 05:37] LABS: ARTERIAL BLOOD FIO2 60%
--- NOTE | 2017-07-21 07:03 | RADIOLOGY REPORT (SQ) ---
EXAM DESCRIPTION: CHEST SINGLE VIEW CLINICAL HISTORY: resp failure/pna COMPARISON: 07/20/2017 FINDINGS: Single frontal view of the chest. Endotracheal tube with tip just below the clavicles. NG tube with tip below the diaphragm. Heart is not enlarged. Leads overlie the chest. Diffuse bilateral interstitial opacities are stable. No pneumothorax or definite pleural effusion. No new osseous abnormalities. Upper abdominal soft tissues are unremarkable. IMPRESSION: 1. No significant interval change.
--- NOTE | 2017-07-21 07:50 | PDOC PROGRESS REPORT ---
Subjective Progress Note for:: 07/21/17 Subjective:: Since yesterday morning, patient has been placed on ventilator. He is resting comfortably. Nurses report no new concerns overnight. Reason For Visit: PNEUMONIA Physical Exam Vital Signs: Temp Pulse Resp BP Pulse Ox 100.0 F 98 24 H 98/53 L 98 07/21/17 05:07 07/21/17 01:56 07/21/17 05:30 07/21/17 05:30 07/21/17 05:30 Intake & Output 07/20/17 07/21/17 07/22/17 06:59 06:59 06:59 Intake Total 2739 4042 Output Total 705 670 Balance 2034 3372 Weight 99.3 kg 101.6 kg General appearance: PRESENT: no acute distress Head exam: PRESENT: normocephalic Respiratory exam: PRESENT: clear to auscultation kristi, unlabored Cardiovascular exam: PRESENT: RRR, tachycardia GI/Abdominal exam: PRESENT: soft. ABSENT: tenderness Extremities exam: ABSENT: pedal edema Skin exam: PRESENT: cyanosis - Feet Results Laboratory Results: 07/21/17 04:06 07/21/17 04:06 07/20/17 07/20/17 07/20/17 08:38 10:30 16:23 WBC RBC Hgb Hct MCV MCH MCHC RDW Plt Count Seg Neutrophils % Lymphocytes % Monocytes % Eosinophils % Basophils % Absolute Neutrophils Absolute Lymphocytes Absolute Monocytes Absolute Eosinophils Absolute Basophils Carbonic Acid 1.83 H 1.54 H HCO3/H2CO3 Ratio 16:1 17:1 ABG pH 7.32 L 7.35 ABG pCO2 60.7 H 51.0 H ABG pO2 109.2 H 87.2 ABG HCO3 30.3 H 27.2 H ABG O2 Saturation 97.5 96.1 ABG Base Excess 4.0 1.1 FiO2 100% 60% Sodium Potassium Chloride Carbon Dioxide Anion Gap BUN Creatinine Est GFR ( Amer) Est GFR (Non-Af Amer) Glucose Calcium Magnesium Urine Color YELLOW Urine Appearance CLOUDY Urine pH 6.0 Ur Specific [place] 1.020 Urine Protein 30 H Urine Glucose (UA) NEGATIVE Urine Ketones NEGATIVE Urine Blood NEGATIVE Urine Nitrite NEGATIVE Ur Leukocyte Esterase NEGATIVE Urine WBC (Auto) 4 Urine RBC (Auto) 2 07/21/17 07/21/17 07/21/17 04:06 04:06 05:05 WBC 14.6 H RBC 2.91 L Hgb 8.2 L Hct 25.2 L MCV 87 MCH 28.3 MCHC 32.6 RDW 18.0 H Plt Count 30 L* Seg Neutrophils % Not Reportable Lymphocytes % Not Reportable Monocytes % Not Reportable Eosinophils % Not Reportable Basophils % Not Reportable Absolute Neutrophils Not Reportable Absolute Lymphocytes Not Reportable Absolute Monocytes Not Reportable Absolute Eosinophils Not Reportable Absolute Basophils Not Reportable Carbonic Acid 1.47 H HCO3/H2CO3 Ratio 16:1 ABG pH 7.32 L ABG pCO2 49.0 H ABG pO2 96.9 ABG HCO3 24.7 ABG O2 Saturation 96.8 ABG Base Excess -1.5 FiO2 60% Sodium 136.9 L Potassium 3.9 Chloride 104 Carbon Dioxide 29 Anion Gap 4 L BUN 27 H Creatinine 0.95 Est GFR ( Amer) > 60 Est GFR (Non-Af Amer) > 60 Glucose 156 H Calcium 7.4 L Magnesium 2.2 Urine Color Urine Appearance Urine pH Ur Specific [place] Urine Protein Urine Glucose (UA) Urine Ketones Urine Blood Urine Nitrite Ur Leukocyte Esterase Urine WBC (Auto) Urine RBC (Auto) 07/18/17 00:15 Tracheal Aspirate Gram Stain - Final 07/18/17 00:15 Tracheal Aspirate Sputum Culture - Final C.albicans/C.dubliniensis Reduced Normal Ania 07/20/17 03:53 NT-Pro-B Natriuret Pep 1580 H Impressions: Chest/Abdomen CTA 07/17/17 00:00 IMPRESSION: 1. There is no evidence of pulmonary emboli. 2. Extensive ground-glass opacification is present in the lungs suggestive of chronic interstitial disease, interstitial edema, atypical pneumonia. This is a relatively nonspecific finding. This has advanced significantly since 2017, however. 3. There are sclerotic lesions in multiple bones concerning for metastases. Does patient have a known neoplasm? Chest X-Ray 07/21/17 06:00 IMPRESSION: 1. No significant interval change. Assessment & Plan - Diagnosis (1) Prostate cancer Is this a current diagnosis for this admission?: Yes Plan: No chemo planned for at least 2 weeks, but patient has been responding well to treatments thus far. (2) Pancytopenia Is this a current diagnosis for this admission?: Yes Plan: Improving. PLT remain low. I would hold any medical DVT prophylaxis or blood thinners until PLT >50 (3) Pneumonia Qualifiers: Pneumonia type: due to unspecified organism Laterality: bilateral Lung location: unspecified part of lung Qualified Code(s): J18.9 - Pneumonia, unspecified organism Is this a current diagnosis for this admission?: Yes Plan: Agree with current treatment. Dr. Hernandez following. (4) Anxiety Is this a current diagnosis for this admission?: Yes
--- NOTE | 2017-07-21 09:31 | XCELERA REPORT ---
[address] [address] Transthoracic Echocardiogram Report Name: RAMIN JUNIOR Age: 76 yrs Gender: Male : 1940 Patient Status: Inpatient Patient Location: ICU^603^A Study Date: 07/20/2017 01:41 PM Height: 73 in Weight: 220 lb BSA: 2.2 m2 Procedure: A complete two-dimensional transthoracic echocardiogram was performed (2D, M-mode, spectral and color flow Doppler). The study was technically difficult with many images being suboptimal in quality. Reason For Study: sob Ordering Physician: AMI ARTEAGA Performed By: Eduarda Nassar Interpretation Summary The left ventricular ejection fraction is normal. There is borderline concentric left ventricular hypertrophy. LV diastolic function could not be adequately assessed. The left ventricle is grossly normal size. Wall motion cannot be accurately commented on, but no definite regional wall motion abnormalities noted. The right ventricle is mildly dilated. The right ventricle appears to be hypertrophied The right ventricular systolic function is normal. The right atrium is mildly dilated. The left atrial size is normal. There is a trace amount of mitral regurgitation There is no mitral valve stenosis. No aortic regurgitation is present. There is no aortic valve stenosis There is a mild amount of tricuspid regurgitation There is servere pulmonary hypertension by echo Right ventricular systolic pressure is estimated to be elevated at >60mmHg. The aortic root is not well visualized. The inferior vena cava appeared normal and decreased > 50% with respiration (RAP 5-10 mmHg) Minimal pericardial effusion. MMode/2D Measurements & Calculations RVDd: 3.3 cm LVIDd: 4.8 cm FS: 28.1 % Ao root diam: 3.2 cm IVSd: 0.97 cm LVIDs: 3.4 cm EDV(Teich): 106.8 ml LVPWd: 1.0 cm ESV(Teich): 48.8 ml Ao root area: 7.9 cm2 EF(Teich): 54.2 % LA dimension: 3.4 cm Doppler Measurements & Calculations MV E max azael: MV P1/2t max azael: Ao V2 max: LV V1 max P.1 cm/sec 46.3 cm/sec 172.8 cm/sec 2.5 mmHg MV A max azael: MV P1/2t: 46.9 msec Ao max PG: LV V1 max: 72.5 cm/sec 11.9 mmHg 78.6 cm/sec MV E/A: 0.62 MVA(P1/2t): 4.7 cm2 MV dec slope: 288.7 cm/sec2 MV dec time: 0.14 sec PA V2 max: TR max azael: 88.8 cm/sec 423.5 cm/sec PA max PG: TR max P.7 mmHg 3.2 mmHg Left Ventricle The left ventricle is grossly normal size. There is borderline concentric left ventricular hypertrophy. The left ventricular ejection fraction is normal. LV diastolic function could not be adequately assessed. Wall motion cannot be accurately commented on, but no definite regional wall motion abnormalities noted. Right Ventricle The right ventricle is mildly dilated. The right ventricle appears to be hypertrophied. The right ventricular systolic function is normal. Atria The right atrium is mildly dilated. The left atrial size is normal. Interarterial septum not well visualized and not well dopplered. Cannot comment on ASD/PFO presence. Mitral Valve The mitral valve is grossly normal. There is no mitral valve stenosis. There is a trace amount of mitral regurgitation. Aortic Valve The aortic valve is not well visualized secondary to technical limitations. The aortic valve opens well. There is no aortic valve stenosis. No aortic regurgitation is present. Tricuspid Valve The tricuspid valve is not well visualized, but is grossly normal. There is no tricuspid stenosis. There is a mild amount of tricuspid regurgitation. There is servere pulmonary hypertension by echo. Right ventricular systolic pressure is estimated to be elevated at >60mmHg. Pulmonic Valve The pulmonic valve is not well visualized. Great Vessels The aortic root is not well visualized. The inferior vena cava appeared normal and decreased > 50% with respiration (RAP 5-10 mmHg). Effusions Minimal pericardial effusion. : AMI ARTEAGA > Adam Redding
[2017-07-21] MEDS: GUAIFENESIN SYRP 200 MG/10 ML UDC NG SCH ×2 (09:54→21:41)
[2017-07-21] MEDS: FAMOTIDINE INJ/PF 20 MG/2 ML SDV IV SCH ×2 (09:54→21:41)
[2017-07-21] MEDS: LEVOFLOXACIN 500 MG/D5W RTU 500 MG/100 ML RTUPB IV SCH (09:54)
[2017-07-21] MEDS: BUDESONIDE/FORMOTEROL 160-4.5 MCG 60 PUFF/6 GM MDI IH SCH ×2 (09:55→16:41)
--- NOTE | 2017-07-21 10:00 | RADIOLOGY REPORT (SQ) ---
EXAM DESCRIPTION: CHEST SINGLE VIEW COMPLETED DATE/TIME: 07/21/2017 9:48 am REASON FOR STUDY: ACUTE RESPIRATORY DISTRESS COMPARISON: Chest film 07/21/2017, of 07/20/2017, 07/19/2017 EXAM PARAMETERS: NUMBER OF VIEWS: One view. TECHNIQUE: Single frontal radiographic view of the chest acquired. RADIATION DOSE: NA LIMITATIONS: None. FINDINGS: LUNGS AND PLEURA: Diffuse increased interstitial markings unchanged. No pleural effusion. No pneumothorax. MEDIASTINUM AND HILAR STRUCTURES: No masses. Contour normal. HEART AND VASCULAR STRUCTURES: Heart normal in size. Normal vasculature. BONES: No acute findings. HARDWARE: Endotracheal tube tip 6 cm above the emmy. Nasogastric tube tip and side-port in stomach . OTHER: No other significant finding. IMPRESSION: No change from 07/21/2017, 07/20/2017, with diffuse increased interstitial markings througho ut both lungs TECHNICAL DOCUMENTATION: JOB ID: [id number] [employer]- All Rights Reserved Reading location - IP/workstation name: [email or web address]
--- NOTE | 2017-07-21 10:14 | PDOC PROGRESS REPORT ---
Subjective Progress Note for:: 07/21/17 Subjective:: Patient is currently intubated and underwent and currently on a pressureFor the low blood pressure According to the nursing stumps no other events happens As per discussed with the oncology today myself and suggested continues to hold any blood transfusions or any blood product Patient is not actively any bleeding No fever Reason For Visit: PNEUMONIA Physical Exam Vital Signs: Temp Pulse Resp BP Pulse Ox 100.0 F 106 H 27 H 106/59 L 94 07/21/17 05:07 07/21/17 08:12 07/21/17 08:45 07/21/17 08:45 07/21/17 08:45 Intake & Output 07/20/17 07/21/17 07/22/17 06:59 06:59 06:59 Intake Total 2739 4042 Output Total 705 670 50 Balance 2034 3372 -50 Weight 99.3 kg 101.6 kg Physical Exam: Currently intubated and vent General appearance: PRESENT: no acute distress Eye exam: PRESENT: PERRLA Mouth exam: PRESENT: neck supple Respiratory exam: PRESENT: decreased breath sounds Cardiovascular exam: PRESENT: +S1, +S2 GI/Abdominal exam: PRESENT: normal bowel sounds, soft Extremities exam: ABSENT: pedal edema Additional comments: Currently intubated and vent Results Laboratory Results: 07/21/17 04:06 07/21/17 04:06 07/20/17 07/20/17 07/21/17 10:30 16:23 04:06 WBC RBC Hgb Hct MCV MCH MCHC RDW Plt Count Seg Neutrophils % Lymphocytes % Monocytes % Eosinophils % Basophils % Absolute Neutrophils Absolute Lymphocytes Absolute Monocytes Absolute Eosinophils Absolute Basophils Carbonic Acid 1.83 H 1.54 H HCO3/H2CO3 Ratio 16:1 17:1 ABG pH 7.32 L 7.35 ABG pCO2 60.7 H 51.0 H ABG pO2 109.2 H 87.2 ABG HCO3 30.3 H 27.2 H ABG O2 Saturation 97.5 96.1 ABG Base Excess 4.0 1.1 FiO2 100% 60% Sodium 136.9 L Potassium 3.9 Chloride 104 Carbon Dioxide 29 Anion Gap 4 L BUN 27 H Creatinine 0.95 Est GFR ( Amer) > 60 Est GFR (Non-Af Amer) > 60 Glucose 156 H Calcium 7.4 L Magnesium 2.2 07/21/17 07/21/17 04:06 05:05 WBC 14.6 H RBC 2.91 L Hgb 8.2 L Hct 25.2 L MCV 87 MCH 28.3 MCHC 32.6 RDW 18.0 H Plt Count 30 L* Seg Neutrophils % Not Reportable Lymphocytes % Not Reportable Monocytes % Not Reportable Eosinophils % Not Reportable Basophils % Not Reportable Absolute Neutrophils Not Reportable Absolute Lymphocytes Not Reportable Absolute Monocytes Not Reportable Absolute Eosinophils Not Reportable Absolute Basophils Not Reportable Carbonic Acid 1.47 H HCO3/H2CO3 Ratio 16:1 ABG pH 7.32 L ABG pCO2 49.0 H ABG pO2 96.9 ABG HCO3 24.7 ABG O2 Saturation 96.8 ABG Base Excess -1.5 FiO2 60% Sodium Potassium Chloride Carbon Dioxide Anion Gap BUN Creatinine Est GFR ( Amer) Est GFR (Non-Af Amer) Glucose Calcium Magnesium 07/18/17 00:15 Tracheal Aspirate Gram Stain - Final 07/18/17 00:15 Tracheal Aspirate Sputum Culture - Final C.albicans/C.dubliniensis Reduced Normal Ania 07/20/17 03:53 NT-Pro-B Natriuret Pep 1580 H Impressions: Chest/Abdomen CTA 07/17/17 00:00 IMPRESSION: 1. There is no evidence of pulmonary emboli. 2. Extensive ground-glass opacification is present in the lungs suggestive of chronic interstitial disease, interstitial edema, atypical pneumonia. This is a relatively nonspecific finding. This has advanced significantly since 2017, however. 3. There are sclerotic lesions in multiple bones concerning for metastases. Does patient have a known neoplasm? Chest X-Ray 07/21/17 06:00 IMPRESSION: 1. No significant interval change. Assessment & Plan - Diagnosis (1) Pneumonia Qualifiers: Pneumonia type: due to unspecified organism Laterality: bilateral Lung location: unspecified part of lung Qualified Code(s): J18.9 - Pneumonia, unspecified organism Is this a current diagnosis for this admission?: Yes Plan: Very extensive pneumonia with the broad-spectrum antibiotic (2) Shortness of breath Is this a current diagnosis for this admission?: Yes Plan: Most likely from underlying pneumonia with some other multifactorial due to the anemia may be of fluid overload due to the blood transfusions we also get the CT angiogram to rule out PE and also order the echocardiogram and continues IV antibiotic (3) Prostate cancer Is this a current diagnosis for this admission?: Yes Plan: We consult oncology (4) Pancytopenia Is this a current diagnosis for this admission?: Yes Plan: Currently follow with oncology (5) Acute hypoxemic respiratory failure Is this a current diagnosis for this admission?: Yes Plan: Currently follow with the pulmonary - Time Time Spent with patient: 15-24 minutes Medications reviewed and adjusted accordingly: Yes Anticipated discharge: Other Within: Other - Inpatient Certification Medical Necessity: Need Close Monitoring Due to Risk of Patient Decompensation, Need For IV Fluids, Need for IV Antibiotics Post Hospital Care: D/C Train Control Technician Documentation - Plan Summary Plan Summary: Continues to current medications increased IV fluid continues to NG tube feeding
[2017-07-21] MEDS: MULTIVITAMINS W-IRON TABLET, CHEWABLE NG SCH (11:04)
--- NOTE | 2017-07-21 13:50 | PDOC PROGRESS REPORT ---
Subjective Progress Note for:: 07/21/17 Subjective:: struggling Reason For Visit: PNEUMONIA Physical Exam Vital Signs: Temp Pulse Resp BP Pulse Ox 100.0 F 98 24 H 98/53 L 98 07/21/17 05:07 07/21/17 01:56 07/21/17 05:30 07/21/17 05:30 07/21/17 05:30 Intake & Output 07/20/17 07/21/17 07/22/17 06:59 06:59 06:59 Intake Total 2739 4042 Output Total 703 507 Balance 2034 3372 Weight 99.3 kg 101.6 kg General appearance: PRESENT: no acute distress, disheveled, well-developed Head exam: PRESENT: atraumatic, normocephalic Eye exam: PRESENT: conjunctiva pale, EOMI. ABSENT: nystagmus, periorbital swelling, scleral icterus Mouth exam: PRESENT: dry mucosa, neck supple, tongue midline, other - ET tube Neck exam: ABSENT: carotid bruit, JVD, lymphadenopathy, thyromegaly, tracheal deviation, tracheostomy Respiratory exam: PRESENT: decreased breath sounds, prolonged expiratory phas, rales, rhonchi, symmetrical, unlabored, wheezes. ABSENT: retraction, stridor Cardiovascular exam: PRESENT: RRR, +S1, +S2, tachycardia Pulses: PRESENT: normal radial pulses GI/Abdominal exam: PRESENT: diminished bowel sounds, soft Gentrourinary exam: PRESENT: indwelling catheter Extremities exam: ABSENT: calf tenderness, clubbing, joint swelling Musculoskeletal exam: ABSENT: deformity, dislocation Neurological exam: PRESENT: awake. ABSENT: oriented to person, oriented to place Skin exam: PRESENT: dry, warm Results Laboratory Results: 07/21/17 04:06 07/21/17 04:06 07/20/17 07/20/17 07/20/17 08:38 10:30 16:23 WBC RBC Hgb Hct MCV MCH MCHC RDW Plt Count Seg Neutrophils % Lymphocytes % Monocytes % Eosinophils % Basophils % Absolute Neutrophils Absolute Lymphocytes Absolute Monocytes Absolute Eosinophils Absolute Basophils Carbonic Acid 1.83 H 1.54 H HCO3/H2CO3 Ratio 16:1 17:1 ABG pH 7.32 L 7.35 ABG pCO2 60.7 H 51.0 H ABG pO2 109.2 H 87.2 ABG HCO3 30.3 H 27.2 H ABG O2 Saturation 97.5 96.1 ABG Base Excess 4.0 1.1 FiO2 100% 60% Sodium Potassium Chloride Carbon Dioxide Anion Gap BUN Creatinine Est GFR ( Amer) Est GFR (Non-Af Amer) Glucose Calcium Magnesium Urine Color YELLOW Urine Appearance CLOUDY Urine pH 6.0 Ur Specific [place] 1.020 Urine Protein 30 H Urine Glucose (UA) NEGATIVE Urine Ketones NEGATIVE Urine Blood NEGATIVE Urine Nitrite NEGATIVE Ur Leukocyte Esterase NEGATIVE Urine WBC (Auto) 4 Urine RBC (Auto) 2 07/21/17 07/21/17 07/21/17 04:06 04:06 05:05 WBC 14.6 H RBC 2.91 L Hgb 8.2 L Hct 25.2 L MCV 87 MCH 28.3 MCHC 32.6 RDW 18.0 H Plt Count 30 L* Seg Neutrophils % Not Reportable Lymphocytes % Not Reportable Monocytes % Not Reportable Eosinophils % Not Reportable Basophils % Not Reportable Absolute Neutrophils Not Reportable Absolute Lymphocytes Not Reportable Absolute Monocytes Not Reportable Absolute Eosinophils Not Reportable Absolute Basophils Not Reportable Carbonic Acid 1.47 H HCO3/H2CO3 Ratio 16:1 ABG pH 7.32 L ABG pCO2 49.0 H ABG pO2 96.9 ABG HCO3 24.7 ABG O2 Saturation 96.8 ABG Base Excess -1.5 FiO2 60% Sodium 136.9 L Potassium 3.9 Chloride 104 Carbon Dioxide 29 Anion Gap 4 L BUN 27 H Creatinine 0.95 Est GFR ( Amer) > 60 Est GFR (Non-Af Amer) > 60 Glucose 156 H Calcium 7.4 L Magnesium 2.2 Urine Color Urine Appearance Urine pH Ur Specific [place] Urine Protein Urine Glucose (UA) Urine Ketones Urine Blood Urine Nitrite Ur Leukocyte Esterase Urine WBC (Auto) Urine RBC (Auto) 07/18/17 00:15 Tracheal Aspirate Gram Stain - Final 07/18/17 00:15 Tracheal Aspirate Sputum Culture - Final C.albicans/C.dubliniensis Reduced Normal Ania 07/20/17 03:53 NT-Pro-B Natriuret Pep 1580 H Impressions: Chest/Abdomen CTA 07/17/17 00:00 IMPRESSION: 1. There is no evidence of pulmonary emboli. 2. Extensive ground-glass opacification is present in the lungs suggestive of chronic interstitial disease, interstitial edema, atypical pneumonia. This is a relatively nonspecific finding. This has advanced significantly since 2017, however. 3. There are sclerotic lesions in multiple bones concerning for metastases. Does patient have a known neoplasm? Chest X-Ray 07/21/17 06:00 IMPRESSION: 1. No significant interval change. Assessment & Plan - Diagnosis (1) ARDS (adult respiratory distress syndrome) Is this a current diagnosis for this admission?: Yes Plan: 97/.6 = 161.6 (2) Pancytopenia Is this a current diagnosis for this admission?: Yes Plan: chemotherapy see onc note (3) Pneumonia Qualifiers: Pneumonia type: due to unspecified organism Laterality: bilateral Lung location: unspecified part of lung Qualified Code(s): J18.9 - Pneumonia, unspecified organism Is this a current diagnosis for this admission?: Yes Plan: culture sputum - Time Total Critical Time (Minutes): 45
[2017-07-21] MEDS: MIDAZOLAM HCL 50 MG/100 ML RTUINJ IV PRN ×2 (14:42→23:04)
[2017-07-21 15:27] LABS: PATH REVIEW PATHOLOGIST REVIEWED
[2017-07-21] MEDS: NORMAL SALINE 1000 ML 1,000 ML IV PRN ×2 (15:31→21:41)
[2017-07-21] MEDS ORDERED: NOREPINEPHRINE BITARTRATE INJ/PF 4 MG/4 ML SDV IV ONE (18:09)
[2017-07-21] MEDS ORDERED: DEXTROSE 5%-WATER 250 ML with NOREPINEPHRINE BITARTRATE 4 MG IV PRN ×2 (18:19)
[2017-07-21] MEDS ORDERED: NORMAL SALINE 1000 ML 1,000 ML IV ONE (18:30)
[2017-07-21] MEDS ORDERED: ACETAMINOPHEN SOLN 325 MG/10.15 ML UDCUP NG PRN (19:15)
[2017-07-21] MEDS ORDERED: DIPHENHYDRAMINE HCL 50 MG/ML VIAL IV PRN (19:15)
[2017-07-22] MEDS: DEXTROSE 5%-WATER 250 ML with PHENYLEPHRINE HCL 40 MG IV PRN ×6 (00:49→11:57)
[2017-07-22] MEDS: VANCOMYCIN HCL 1,500 MG in DEXTROSE 5%-WATER 250 ML IV SCH (01:52)
[2017-07-22] MEDS: IPRATROPIUM/ALBUTEROL 0.5-2.5 MG/3 ML AMPUL NEB SCH ×3 (02:10→13:32)
[2017-07-22 04:37] LABS: HEMATOCRIT 30.3 % (37.9-51.0); HEMOGLOBIN 9.7 g/dL (13.5-17.0); MEAN CORPUSCULAR HEMOGLOBIN 28.4 pg (27.0-33.4); MEAN CORPUSCULAR VOLUME 89 fl (80-97); RED BLOOD COUNT 3.41 10^6/uL (4.35-5.55); RED CELL DISTRIBUTION WIDTH 18.2 % (11.5-14.0); WHITE BLOOD COUNT 18.9 10^3/uL (4.0-10.5)
[2017-07-22 04:50] LABS: ANION GAP 9 (5-19); BLOOD UREA NITROGEN 37 mg/dL (7-20); CARBON DIOXIDE 23 mmol/L (22-30); CHLORIDE 101 mmol/L (98-107); GLUCOSE 177 mg/dL (75-110); POTASSIUM 4.3 mmol/L (3.6-5.0); SODIUM 132.6 mmol/L (137-145)
[2017-07-22 04:56] LABS: PLATELET COUNT 15 10^3/uL (150-450)
[2017-07-22 04:57] LABS: CALCIUM 6.9 mg/dL (8.4-10.2)
[2017-07-22 05:10] LABS: ABSOLUTE LYMPHOCYTES# (MANUAL) 0.9 10^3/uL (0.5-4.7); ABSOLUTE MONOCYTES # (MANUAL) 1.3 10^3/uL (0.1-1.4); ABSOLUTE NEUTROPHILS# (MANUAL) 16.6 10^3/uL (1.7-8.2); BAND NEUTROPHILS % (MANUAL) 5 % (3-5); BASOPHILS % (MANUAL) 0 % (0-2); EOSINOPHILS % (MANUAL) 0 % (0-6); LYMPHOCYTES % (MANUAL) 1 % (13-45); MONOCYTES % (MANUAL) 7 % (3-13); NUCLEATED RED BLOOD CELLS 1 /100 WBC (0); SEGMENTED NEUTROPHILS % (MAN) 83 % (42-78); TOTAL CELLS COUNTED 100
[2017-07-22 05:13] LABS: PLATELET COMMENT DECREASED
[2017-07-22 05:14] LABS: ANISOCYTOSIS SLIGHT; BURR CELLS 1+; POIKILOCYTOSIS 1+
[2017-07-22 05:15] LABS: POLYCHROMASIA SLIGHT
[2017-07-22] MEDS: CEFEPIME 2 GM/D5W RTU 2 GM/50 ML RTUPB IV SCH (05:29)
[2017-07-22] MEDS: PROPOFOL 100 ML IV PRN (05:29)
[2017-07-22 05:56] LABS: ARTERIAL BLOOD BASE EXCESS -8.6 mmol/L; ARTERIAL BLOOD FIO2 80%; ARTERIAL BLOOD H2CO3 1.85 mmol/L (1.05-1.35); ARTERIAL BLOOD HCO3 20.6 mmol/L (20-26); ARTERIAL BLOOD O2 SATURATION 95.2 % (94-98); ARTERIAL BLOOD PCO2 61.4 mmHg (35-45); ARTERIAL BLOOD TOTAL CO2 22.5 mmol/L (23-27)
[2017-07-22 05:57] LABS: ARTERIAL BLOOD PH 7.14 (7.35-7.45)
--- NOTE | 2017-07-22 06:29 | RADIOLOGY REPORT (SQ) ---
EXAM DESCRIPTION: CHEST SINGLE VIEW CLINICAL HISTORY: pna/resp fail COMPARISON: 07/21/2017 FINDINGS: Single frontal view of the chest. Endotracheal tube with tip just below the clavicles. NG tube with tip below the diaphragm. Heart is not enlarged. Leads overlie the chest. Diffuse bilateral interstitial opacities are stable. No pneumothorax or definite pleural effusion. No new osseous abnormalities. Upper abdominal soft tissues are unremarkable. IMPRESSION: 1. No significant interval change. Electronically signed by: Dmitri Noble 07/22/2017 5:27 AM
[2017-07-22 08:01] LABS: INTERNATIONAL RATION (INR) 1.18; PROTHROMBIN TIME 15.8 SEC (11.4-15.4)
[2017-07-22 08:02] LABS: FIBRINOGEN 524 mg/dL (209-497); PARTIAL THROMBOPLASTIN TIME 34.4 SEC (23.5-35.8)
--- NOTE | 2017-07-22 08:03 | PDOC PROGRESS REPORT ---
Subjective Progress Note for:: 07/22/17 Subjective:: Patient remains intubated in the ICU. is at bedside. Overnight, his blood pressure dropped, he was started on pressors. He was given 2 units pRBCs. His urine output has dramatically decreased and his Cr has increased. Reason For Visit: PNEUMONIA Physical Exam Vital Signs: Temp Pulse Resp BP Pulse Ox 99.5 F 100 24 H 94/61 L 99 07/22/17 03:34 07/22/17 02:10 07/22/17 06:02 07/22/17 06:02 07/22/17 06:02 Intake & Output 07/21/17 07/22/17 07/23/17 06:59 06:59 06:59 Intake Total 4042 6660 Output Total 670 272 Balance 3372 6388 Weight 101.6 kg 106.2 kg General appearance: PRESENT: no acute distress Exam: Well nourished, 76 year old gentleman sedated, on ventilator. Head exam: PRESENT: atraumatic Respiratory exam: PRESENT: clear to auscultation kristi, unlabored Cardiovascular exam: PRESENT: RRR. ABSENT: systolic murmur GI/Abdominal exam: PRESENT: normal bowel sounds, soft. ABSENT: tenderness Extremities exam: ABSENT: pedal edema Skin exam: PRESENT: cyanosis, mottled, other - Feet are very cool to the touch. Results Laboratory Results: 07/22/17 04:04 07/22/17 04:04 07/21/17 07/22/17 07/22/17 19:10 04:04 04:04 WBC 18.9 H RBC 3.41 L Hgb 9.7 L Hct 30.3 L MCV 89 MCH 28.4 MCHC 32.0 RDW 18.2 H Plt Count 15 L* Seg Neutrophils % Not Reportable Lymphocytes % Not Reportable Monocytes % Not Reportable Eosinophils % Not Reportable Basophils % Not Reportable Absolute Neutrophils Not Reportable Absolute Lymphocytes Not Reportable Absolute Monocytes Not Reportable Absolute Eosinophils Not Reportable Absolute Basophils Not Reportable Carbonic Acid HCO3/H2CO3 Ratio ABG pH ABG pCO2 ABG pO2 ABG HCO3 ABG O2 Saturation ABG Base Excess FiO2 Sodium 132.6 L Potassium 4.3 Chloride 101 Carbon Dioxide 23 Anion Gap 9 BUN 37 H Creatinine 2.26 H Est GFR ( Amer) 34 L Est GFR (Non-Af Amer) 28 L Glucose 177 H Calcium 6.9 L* Magnesium 2.3 Albumin Blood Type A POSITIVE Antibody Screen NEGATIVE 07/22/17 07/22/17 04:04 05:45 WBC RBC Hgb Hct MCV MCH MCHC RDW Plt Count Seg Neutrophils % Lymphocytes % Monocytes % Eosinophils % Basophils % Absolute Neutrophils Absolute Lymphocytes Absolute Monocytes Absolute Eosinophils Absolute Basophils Carbonic Acid 1.85 H HCO3/H2CO3 Ratio 11:1 ABG pH 7.14 L* ABG pCO2 61.4 H ABG pO2 98.0 ABG HCO3 20.6 ABG O2 Saturation 95.2 ABG Base Excess -8.6 FiO2 80% Sodium Potassium Chloride Carbon Dioxide Anion Gap BUN Creatinine Est GFR ( Amer) Est GFR (Non-Af Amer) Glucose Calcium Magnesium Albumin 2.2 L Blood Type Antibody Screen 07/16/17 23:52 Blood Blood Culture - Final NO GROWTH IN 5 DAYS 07/20/17 03:53 NT-Pro-B Natriuret Pep 1580 H Impressions: Chest/Abdomen CTA 07/17/17 00:00 IMPRESSION: 1. There is no evidence of pulmonary emboli. 2. Extensive ground-glass opacification is present in the lungs suggestive of chronic interstitial disease, interstitial edema, atypical pneumonia. This is a relatively nonspecific finding. This has advanced significantly since 2017, however. 3. There are sclerotic lesions in multiple bones concerning for metastases. Does patient have a known neoplasm? Chest X-Ray 07/22/17 06:00 IMPRESSION: 1. No significant interval change. Assessment & Plan - Diagnosis (1) Prostate cancer Is this a current diagnosis for this admission?: Yes Plan: Continues to respond to treatment. I discussed with Dr. Reynolds. I agree with decision to make patient DNR. However, all of his acute problems appear to be due to his active infection, not to cancer. I still believe that these are reversible and aggressive measures should continue. (2) Pancytopenia Is this a current diagnosis for this admission?: Yes Plan: WBCs now elevated, appropriately after neulasta. He has been transfused pRBCs and PLT have been ordered. I will order repeat CBC later today and continue to transfuse as needed. (3) Pneumonia Qualifiers: Pneumonia type: due to unspecified organism Laterality: bilateral Lung location: unspecified part of lung Qualified Code(s): J18.9 - Pneumonia, unspecified organism Is this a current diagnosis for this admission?: Yes Plan: With Sepsis. H. influenza and Daria growing thus far. I have asked for Blood cultures to be drawn if any further temp spikes. Dr. Reynolds will stip Vanc and add Diflucan, or other appropriate medication for fungal coverage. (4) Anxiety Is this a current diagnosis for this admission?: Yes (5) Acute renal failure Is this a current diagnosis for this admission?: Yes Plan: Most likely due to the sepsis. Continue pressor support and fluids.
[2017-07-22] MEDS: LEVOFLOXACIN 500 MG/D5W RTU 500 MG/100 ML RTUPB IV SCH (08:58)
--- NOTE | 2017-07-22 08:59 | PDOC PROGRESS REPORT ---
Subjective Progress Note for:: 07/22/17 Subjective:: Patient is not doing well patient's platelet count is below 20 and patient's creatinine is go to up to 2.27 Patient still hypotensive require pressure Patient urine output is very low Patient's currently afebrile As per discussed with the patient's on the bedside regarding the patient's current conditions with the poor prognosis and discuss about the CODE STATUS and she will talk to the family and decide Discussed with the oncology and pulmonary Reason For Visit: PNEUMONIA Physical Exam Vital Signs: Temp Pulse Resp BP Pulse Ox 99.3 F 102 H 24 H 101/64 97 07/22/17 08:00 07/22/17 08:22 07/22/17 08:22 07/22/17 08:00 07/22/17 08:22 Intake & Output 07/21/17 07/22/17 07/23/17 06:59 06:59 06:59 Intake Total 4042 6660 Output Total 670 272 5 Balance 3372 6388 -5 Weight 101.6 kg 106.2 kg Physical Exam: Currently intubated General appearance: PRESENT: no acute distress Eye exam: PRESENT: PERRLA Mouth exam: PRESENT: neck supple Respiratory exam: PRESENT: decreased breath sounds Cardiovascular exam: PRESENT: +S1, +S2 GI/Abdominal exam: PRESENT: normal bowel sounds, soft Extremities exam: ABSENT: pedal edema Additional comments: Currently intubated Results Laboratory Results: 07/22/17 04:04 07/22/17 04:04 07/21/17 07/22/17 07/22/17 19:10 04:04 04:04 WBC 18.9 H RBC 3.41 L Hgb 9.7 L Hct 30.3 L MCV 89 MCH 28.4 MCHC 32.0 RDW 18.2 H Plt Count 15 L* Seg Neutrophils % Not Reportable Lymphocytes % Not Reportable Monocytes % Not Reportable Eosinophils % Not Reportable Basophils % Not Reportable Absolute Neutrophils Not Reportable Absolute Lymphocytes Not Reportable Absolute Monocytes Not Reportable Absolute Eosinophils Not Reportable Absolute Basophils Not Reportable Carbonic Acid HCO3/H2CO3 Ratio ABG pH ABG pCO2 ABG pO2 ABG HCO3 ABG O2 Saturation ABG Base Excess FiO2 Sodium 132.6 L Potassium 4.3 Chloride 101 Carbon Dioxide 23 Anion Gap 9 BUN 37 H Creatinine 2.26 H Est GFR ( Amer) 34 L Est GFR (Non-Af Amer) 28 L Glucose 177 H Calcium 6.9 L* Magnesium 2.3 Albumin Blood Type A POSITIVE Antibody Screen NEGATIVE 07/22/17 07/22/17 04:04 05:45 WBC RBC Hgb Hct MCV MCH MCHC RDW Plt Count Seg Neutrophils % Lymphocytes % Monocytes % Eosinophils % Basophils % Absolute Neutrophils Absolute Lymphocytes Absolute Monocytes Absolute Eosinophils Absolute Basophils Carbonic Acid 1.85 H HCO3/H2CO3 Ratio 11:1 ABG pH 7.14 L* ABG pCO2 61.4 H ABG pO2 98.0 ABG HCO3 20.6 ABG O2 Saturation 95.2 ABG Base Excess -8.6 FiO2 80% Sodium Potassium Chloride Carbon Dioxide Anion Gap BUN Creatinine Est GFR ( Amer) Est GFR (Non-Af Amer) Glucose Calcium Magnesium Albumin 2.2 L Blood Type Antibody Screen 07/16/17 23:52 Blood Blood Culture - Final NO GROWTH IN 5 DAYS 07/20/17 03:53 NT-Pro-B Natriuret Pep 1580 H Impressions: Chest/Abdomen CTA 07/17/17 00:00 IMPRESSION: 1. There is no evidence of pulmonary emboli. 2. Extensive ground-glass opacification is present in the lungs suggestive of chronic interstitial disease, interstitial edema, atypical pneumonia. This is a relatively nonspecific finding. This has advanced significantly since 2017, however. 3. There are sclerotic lesions in multiple bones concerning for metastases. Does patient have a known neoplasm? Chest X-Ray 07/22/17 06:00 IMPRESSION: 1. No significant interval change. Assessment & Plan - Diagnosis (1) Pneumonia Qualifiers: Pneumonia type: due to unspecified organism Laterality: bilateral Lung location: unspecified part of lung Qualified Code(s): J18.9 - Pneumonia, unspecified organism Is this a current diagnosis for this admission?: Yes Plan: Patient's white count elevated but as per discussed with the oncology patients received the Neulasta so I think will continues to cefepime and Levaquin and stop the vancomycin's and may be considered to put the Diflucan (2) Shortness of breath Is this a current diagnosis for this admission?: Yes (3) Prostate cancer Is this a current diagnosis for this admission?: Yes Plan: As per follow with the oncology (4) Pancytopenia Is this a current diagnosis for this admission?: Yes Plan: Patient is currently follow with oncology and receiving the blood and the platelet transfusions (5) Acute hypoxemic respiratory failure Is this a current diagnosis for this admission?: Yes Plan: Currently follow with the pulmonary (6) Acute renal failure Qualifiers: Acute renal failure type: unspecified Qualified Code(s): N17.9 - Acute kidney failure, unspecified Is this a current diagnosis for this admission?: Yes Plan: Acute renal failure due to the combination of the vancomycin and hypotension and maybe IV contrast with the septic shock Will DC the vancomycin and continues IV fluid consult the nephrology as per discussed myself with the Dr. Lugo who agreed to see the patient - Time Time Spent with patient: 25-34 minutes Total Critical Time (Minutes): 25 Medications reviewed and adjusted accordingly: Yes Anticipated discharge: Other Within: Other - Inpatient Certification Medical Necessity: Need Close Monitoring Due to Risk of Patient Decompensation, Need For IV Fluids, Need for IV Antibiotics Post Hospital Care: D/C House Carpenter Documentation - Plan Summary Plan Summary: Very extensive discussed with the patient's regarding the patient's poor conditions and a CODE STATUS and coordinated care discussed with the pulmonary and oncology and nephrology and everybody's and agree with the patient's poor prognosis
[2017-07-22] MEDS ORDERED: FUROSEMIDE INJ/PF 20 MG/2 ML SDV IV SCH (10:00)
[2017-07-22 10:18] LABS: VANCOMYCIN,TROUGH 45.4 ug/mL (5.0-20.0)
--- NOTE | 2017-07-22 10:35 | RADIOLOGY REPORT (SQ) ---
EXAM DESCRIPTION: CT ABD/PELVIS NO ORAL OR IV COMPLETED DATE/TIME: 07/22/2017 10:14 am REASON FOR STUDY: renal faiure COMPARISON: 05/25/2017 CT TECHNIQUE: CT scan of the abdomen and pelvis performed without intravenous or oral contrast. Images reviewed with lung, soft tissue, and bone windows. Reconstructed coronal and sagittal MPR images revi ewed. All images stored on PACS. All CT scanners at this facility use dose modulation, iterative reconstruction, and/or weight based d osing when appropriate to reduce radiation dose to as low as reasonably achievable (ALARA). [facility]: Dose Right [facility]: CareDose [facility]: Dose Right [facility]: Teradose 4D [facility]: [employer] RADIATION DOSE: CT Rad equipment meets quality standard of care and radiation dose reduction techniq ues were employed. CTDIvol: 23.1 mGy. DLP: 1314 mGy-cm.mGy. LIMITATIONS: None. FINDINGS: LOWER CHEST: Bibasilar dense consolidation with small bilateral pleural effusions. Scant pericardial effusion. NON-CONTRASTED LIVER, SPLEEN, ADRENALS: Evaluation limited by lack of IV contrast. No identified sign ificant masses. PANCREAS: No masses. No peripancreatic inflammatory changes. GALLBLADDER: No identified stones by CT criteria. Scant fluid is seen within the gallbladder fossa. . RIGHT KIDNEY AND URETER: No suspicious masses. Assessment limited by lack of IV contrast. No signif icant calcifications. No hydronephrosis or hydroureter. LEFT KIDNEY AND URETER: No suspicious masses. Assessment limited by lack of IV contrast. No signifi cant calcifications. No hydronephrosis or hydroureter. AORTA AND RETROPERITONEUM: No aneurysm. No retroperitoneal masses or adenopathy. BOWEL AND PERITONEAL CAVITY: Diffuse/nonfocal mesenteric fat stranding is present without defined flu id collection or significant ascites. Scattered colonic diverticula without focal inflammatory kim es. . No free fluid. APPENDIX: Normal. PELVIS, BLADDER, AND ABDOMINAL WALL:No abnormal masses. No free fluid. Bladder decompressed. BONES: No significant findings. OTHER: And enteric tube terminates within the gastric body. A Troncoso bladder catheter terminates with in the urinary bladder. IMPRESSION: 1. Nonfocal mesenteric fat stranding without defined nidus of infection. Findings may represent positive fluid balance. 2. Bibasilar pulmonary consolidation with small bilateral pleural effusions. Findings likewise may represent infectious versus pulmonary edema. COMMENT: Quality ID # [id number]: Final reports with documentation of one or more dose reduction techniques (e.g., Automated exposure control, adjustment of the mA and/or kV according to patient size, use of iterative reconstruction technique) TECHNICAL DOCUMENTATION: JOB ID: [id number] [email or web address]- All Rights Reserved Reading location - IP/workstation name: [email or web address]
[2017-07-22] MEDS: GUAIFENESIN SYRP 200 MG/10 ML UDC NG SCH (10:39)
[2017-07-22] MEDS: BUDESONIDE/FORMOTEROL 160-4.5 MCG 60 PUFF/6 GM MDI IH SCH (10:39)
[2017-07-22] MEDS: FAMOTIDINE INJ/PF 20 MG/2 ML SDV IV SCH (10:43)
[2017-07-22] MEDS: MORPHINE SULFATE 10 MG/ML INJ IV PRN (11:57)
[2017-07-22] MEDS: MULTIVITAMINS W-IRON TABLET, CHEWABLE NG SCH (11:58)
[2017-07-22] MEDS ORDERED: MORPHINE SULFATE 10 MG/ML INJ IV PRN (12:01)
[2017-07-22] MEDS ORDERED: LORAZEPAM INJ 2 MG/1 ML VIAL IV PRN (12:02)
[2017-07-22 13:20] VITALS: BP 102/71
--- NOTE | 2017-07-22 13:26 | PDOC PROGRESS REPORT ---
Subjective Progress Note for:: 07/22/17 Subjective:: Intubated and sedated Reason For Visit: PNEUMONIA Physical Exam Vital Signs: Temp Pulse Resp BP Pulse Ox 99.3 F 99 24 H 101/64 100 07/22/17 08:00 07/22/17 08:00 07/22/17 08:00 07/22/17 08:00 07/22/17 08:00 Intake & Output 07/21/17 07/22/17 07/23/17 06:59 06:59 06:59 Intake Total 4042 6660 Output Total 670 272 5 Balance 3372 6388 -5 Weight 101.6 kg 106.2 kg General appearance: PRESENT: no acute distress, well-developed. ABSENT: cooperative, disheveled Head exam: PRESENT: atraumatic, normocephalic Eye exam: PRESENT: conjunctiva pale. ABSENT: EOMI, nystagmus, periorbital swelling, scleral icterus Mouth exam: PRESENT: dry mucosa, neck supple, tongue midline, other - ET tube in place Neck exam: ABSENT: carotid bruit, JVD, lymphadenopathy, thyromegaly, tracheal deviation, tracheostomy Respiratory exam: PRESENT: decreased breath sounds, prolonged expiratory phas, rales, rhonchi, symmetrical, unlabored, wheezes. ABSENT: retraction, stridor, tachypnea Cardiovascular exam: PRESENT: RRR, rubs, +S2, tachycardia Pulses: PRESENT: normal radial pulses GI/Abdominal exam: PRESENT: diminished bowel sounds, soft Extremities exam: ABSENT: calf tenderness, clubbing, joint swelling Musculoskeletal exam: ABSENT: ambulatory, deformity, dislocation, full ROM Neurological exam: ABSENT: awake, oriented to person Skin exam: PRESENT: dry, warm Results Laboratory Results: 07/22/17 04:04 07/22/17 04:04 07/21/17 07/22/17 07/22/17 19:10 04:04 04:04 WBC 18.9 H RBC 3.41 L Hgb 9.7 L Hct 30.3 L MCV 89 MCH 28.4 MCHC 32.0 RDW 18.2 H Plt Count 15 L* Seg Neutrophils % Not Reportable Lymphocytes % Not Reportable Monocytes % Not Reportable Eosinophils % Not Reportable Basophils % Not Reportable Absolute Neutrophils Not Reportable Absolute Lymphocytes Not Reportable Absolute Monocytes Not Reportable Absolute Eosinophils Not Reportable Absolute Basophils Not Reportable Carbonic Acid HCO3/H2CO3 Ratio ABG pH ABG pCO2 ABG pO2 ABG HCO3 ABG O2 Saturation ABG Base Excess FiO2 Sodium 132.6 L Potassium 4.3 Chloride 101 Carbon Dioxide 23 Anion Gap 9 BUN 37 H Creatinine 2.26 H Est GFR ( Amer) 34 L Est GFR (Non-Af Amer) 28 L Glucose 177 H Calcium 6.9 L* Magnesium 2.3 Albumin Blood Type A POSITIVE Antibody Screen NEGATIVE 07/22/17 07/22/17 04:04 05:45 WBC RBC Hgb Hct MCV MCH MCHC RDW Plt Count Seg Neutrophils % Lymphocytes % Monocytes % Eosinophils % Basophils % Absolute Neutrophils Absolute Lymphocytes Absolute Monocytes Absolute Eosinophils Absolute Basophils Carbonic Acid 1.85 H HCO3/H2CO3 Ratio 11:1 ABG pH 7.14 L* ABG pCO2 61.4 H ABG pO2 98.0 ABG HCO3 20.6 ABG O2 Saturation 95.2 ABG Base Excess -8.6 FiO2 80% Sodium Potassium Chloride Carbon Dioxide Anion Gap BUN Creatinine Est GFR ( Amer) Est GFR (Non-Af Amer) Glucose Calcium Magnesium Albumin 2.2 L Blood Type Antibody Screen 07/16/17 23:52 Blood Blood Culture - Final NO GROWTH IN 5 DAYS 07/20/17 03:53 NT-Pro-B Natriuret Pep 1580 H Impressions: Chest/Abdomen CTA 07/17/17 00:00 IMPRESSION: 1. There is no evidence of pulmonary emboli. 2. Extensive ground-glass opacification is present in the lungs suggestive of chronic interstitial disease, interstitial edema, atypical pneumonia. This is a relatively nonspecific finding. This has advanced significantly since 2017, however. 3. There are sclerotic lesions in multiple bones concerning for metastases. Does patient have a known neoplasm? Chest X-Ray 07/22/17 06:00 IMPRESSION: 1. No significant interval change. Assessment & Plan - Diagnosis (1) ARDS (adult respiratory distress syndrome) Is this a current diagnosis for this admission?: Yes Plan: 97/.6 = 161.6 98/.8= 122 Labs- All tests 24 hr 07/22/17 05:45 ABG pH 7.14 L* ABG pCO2 61.4 H ABG pO2 98.0 (2) Pancytopenia Is this a current diagnosis for this admission?: Yes Plan: Labs- All tests 24 hr 0307/17/17 07/18/17 22:25 05:40 03:47 Plt Count 91 L 69 L 49 L 07/19/17 07/20/17 07/21/17 04:14 03:53 04:06 Plt Count 40 L 43 L 30 L* 07/22/17 04:04 Plt Count 15 L* Status post 2 units of packed red blood cells (3) Pneumonia Qualifiers: Pneumonia type: due to unspecified organism Laterality: bilateral Lung location: unspecified part of lung Qualified Code(s): J18.9 - Pneumonia, unspecified organism Is this a current diagnosis for this admission?: Yes Plan: No radiographic change no positive cultures PaO2/FiO2 ratio declining (4) Transmural myocardial infarction of inferolateral wall, initial hospitalization Is this a current diagnosis for this admission?: Yes Plan: Abnormal EKG Tracings consistent with inferior MT acutely (5) Acute renal failure Qualifiers: Acute renal failure type: with acute tubular necrosis Qualified Code(s): N17.0 - Acute kidney failure with tubular necrosis Is this a current diagnosis for this admission?: Yes Plan: Labs- All tests 24 hr 07/21/17 07/22/17 04:06 04:04 Creatinine 0.95 2.26 H Episode of hypoperfusion reported - Time Total Critical Time (Minutes): 90 - Plan Summary Plan Summary: Approach by family after long discussion patient made DNR. Later was approached by nurse to speak to patient's family along with attending family has decided patient should be comfort care I concur
--- NOTE | 2017-07-22 16:36 | Death Summary ---
Summary Date : 07/22/17 Autopsy: No Resuscitation Status: Comfort Measures Only - Final Diagnosis (1) Pneumonia Is this a current diagnosis for this admission?: Yes (2) Shortness of breath Is this a current diagnosis for this admission?: Yes (3) Prostate cancer Is this a current diagnosis for this admission?: Yes (4) Pancytopenia Is this a current diagnosis for this admission?: Yes (5) Acute hypoxemic respiratory failure Is this a current diagnosis for this admission?: Yes (6) Acute renal failure Is this a current diagnosis for this admission?: Yes (8) ARDS (adult respiratory distress syndrome) Is this a current diagnosis for this admission?: Yes (9) Transmural myocardial infarction of inferolateral wall, initial hospitalization Is this a current diagnosis for this admission?: Yes Hospital Course:: This 76-year-old male stage IV prostate cancer with metastases in the bone in the lung basically present in the ER because of the shortness of the breath and a very weak patient was diagnosed with extensive pneumonia and a CT angiogram with negative for PEPatient was put on a broad-spectrum antibiotic but patient was still struggling on a BiPAP seen by the pulmonary and oncology patient was transferred to the ICU and the kept on the BiPAP for couple of days but the patient's does not response very well and patient was intubated and put on a vent Patient's also got hypotensive require pressure Patient also developed the renal failure due to the multiple etiology with including the septic shock hypertension's and the medicationsPatient's also developed some myocardial infarctionsAnd patient was severely his pancytopenia with a platelet count was 15 Very extensive discussions with the patient family including the on the bedside myself with the Dr. Hernandez and patient's family desire for DNR and the letter wants to do the comfort care and patient was placed in the comfort care and patient was
[2017-07-22] MEDS ORDERED: CEFEPIME HCL 2 GM in NORMAL SALINE 50 ML IV SCH (18:00)
--- NOTE | 2017-07-22 19:52 | PDOC CONSULTATION ---
Consultation Consult Date: 07/22/17 Attending physician:: AMI ARTEAGA Consult reason:: Acute ST segment elevation RI History of Present Illness Admission Date/PCP: 07/16/17 23:31 AMI ARTEAGA MD Patient complains of: Patient currently intubated and sedated. Patient noted to have ST elevation on cardiac monitoring History of Present Illness: Patient is an elderly gentleman with metastatic prostate cancer, who has been in the unit and has progressively deteriorated. He was initially admitted because of respiratory problems and subsequently got intubated. He was noted to have acute renal failure, respiratory failure and pancytopenia. Patient had gone for a abdominal and pelvis CT without contrast but was noted to have significant ST elevation on monitor. Subsequently a 12-lead EKG was performed which shows ST segment elevation in anterior precordial leads. Patient was already very hypotensive needing to vasopressors. He was also noted to be in respiratory distress needing high flow oxygen and artificial ventilation. Patient's chart was reviewed. I did talk with Dr. Arteaga and also patient's family members as well as nurses. It was felt that thrombolytics were contraindicated. Patient was noted to have frequent ventricular ectopy, noted to be significantly increased from baseline therefore I recommended that patient be started on amiodarone drip and bolus protocol. After long discussion with patient's , patient's son who is an EMT it was felt only viable option would be transferred to tertiary care for emergent heart cath and coronary intervention as thrombolytics were felt to be contraindicated because of metastatic malignancy, very low platelet count. However the family decided against transfer as it was later on found that patient did not want to be placed on any life support. However patient already was on life support. There were ongoing discussion by other attending whether to make patient comfort care. Past Medical History Cardiac Medical History: Denies: Congestive Heart Failure, Myocardial Infarction, Hypertension Pulmonary Medical History: Reports: Chronic Obstructive Pulmonary Disease (COPD) Denies: Asthma, Bronchitis, Pneumonia, Tuberculosis Neurological Medical History: Denies: Seizures Renal/ Medical History: Denies: End Stage Renal Disease GI Medical History: Denies: Cirrhosis, Gastroesophageal Reflux Disease Musculoskeltal Medical History: Denies: Arthritis Psychiatric Medical History: Denies: Bipolar Disorder, Depression Hematology: Reports: Anemia Denies: Bleeding Tendencies Social History Information Source: Relative Smoking Status: Former Smoker Cigarettes Packs Per Day: 1.5 Number of Years Smokin Last Time Smoked: 2012 Frequency of Alcohol Use: None Hx Recreational Drug Use: No Drugs: None Hx Prescription Drug Abuse: No - Advance Directive Resuscitation Status: Do Not Resuscitate Surrogate healthcare decision maker:: Patient's Family History Family History: Hypertension, Malignancy Parental Family History Reviewed: Yes Children Family History Reviewed: Yes Sibling(s) Family History Reviewed.: Yes Medication/Allergy Home Medications: Aspirin [Aspirin 81 mg Chewable Tablet] 81 mg PO DAILY 07/16/17 Budesonide/Formoterol Fumarate [Symbicort 160-4.5 Mcg Inhaler] 2 puff IH Q12 Multivit-Min/Iron/Folic Acid/K [Multi-Day Plus Minerals Tablet] 1 tab PO DAILY 07/16/17 Tamsulosin HCl [Flomax] 0.4 mg PO QPM 07/16/17 Metoclopramide HCl [Reglan 10 mg Tablet] 10 mg PO QIDP PRN 07/17/17 Allergies/Adverse Reactions: No Known Allergies Allergy (Unverified 07/16/17 11:34) Review of Systems ROS unobtainable: Due to endotracheal tube Physical Exam Vital Signs: Temp Pulse Resp BP Pulse Ox 99.7 F 110 H 24 H 102/71 98 07/22/17 10:00 07/22/17 11:10 07/22/17 12:29 07/22/17 12:29 07/22/17 12:29 Intake & Output 07/21/17 07/22/17 07/23/17 06:59 06:59 06:59 Intake Total 4042 6660 299 Output Total 670 272 10 Balance 3372 0421 289 Weight 101.6 kg 106.2 kg Exam: GENERAL: well-nourished and in no acute distress. Patient is intubated and sedated. Orientation cannot be checked HEAD: Atraumatic, normocephalic. EYES: Pupils equal round and reactive to light, extraocular movements could not be checked, sclera anicteric, conjunctiva are normal. ENT: TMs normal, nares patent, oropharynx clear without exudates. Moist mucous membranes. No oral ulcerations or bleeding gums noted NECK: supple without lymphadenopathy or JVD. Trachea is central. No cervical or axillary lymphadenopathy noted. Carotids are 2+ LUNGS: Breath sounds mostly clear to auscultation patient is noted to have bibasal crackles at the extreme bases. Diminished breath sounds noted at bases. CHEST: Palpation of the chest wall shows no significant chest wall tenderness or abnormalities. HEART: [place] [employer], No PSH, 2/6 LIYA aortic area, 1/6 guerrero systolic murmur mitral area , no rubs, positive S4 gallops. ABDOMEN: Soft, no significant tenderness appreciated, normoactive bowel sounds. Mild abdominal distention noted. No guarding, no rebound. No rigidity noted . No masses appreciated. EXTREMITIES: Pedal pulses are 1-2+, no calf tenderness noted, 1+ pedal edema noted. No clubbing or cyanosis. Generalized edema 1+ also noted NEUROLOGICAL: The patient cannot participate in the neurological exam but no facial asymmetry noted. Extremities slightly hypotonic PSYCH: This cannot be evaluated. Patient cannot participate. SKIN: No significant ecchymosis, rash, or signs of pruritus noted. MUSCULOSKELETAL EXAM: No significant joint swelling noted. Patient cannot participate in musculoskeletal exam Results Laboratory Results: 07/22/17 04:04 07/22/17 04:04 07/21/17 07/22/17 07/22/17 19:10 04:04 04:04 WBC 18.9 H RBC 3.41 L Hgb 9.7 L Hct 30.3 L MCV 89 MCH 28.4 MCHC 32.0 RDW 18.2 H Plt Count 15 L* Seg Neutrophils % Not Reportable Lymphocytes % Not Reportable Monocytes % Not Reportable Eosinophils % Not Reportable Basophils % Not Reportable Absolute Neutrophils Not Reportable Absolute Lymphocytes Not Reportable Absolute Monocytes Not Reportable Absolute Eosinophils Not Reportable Absolute Basophils Not Reportable Carbonic Acid HCO3/H2CO3 Ratio ABG pH ABG pCO2 ABG pO2 ABG HCO3 ABG O2 Saturation ABG Base Excess FiO2 Sodium 132.6 L Potassium 4.3 Chloride 101 Carbon Dioxide 23 Anion Gap 9 BUN 37 H Creatinine 2.26 H Est GFR ( Amer) 34 L Est GFR (Non-Af Amer) 28 L Glucose 177 H Lactic Acid Calcium 6.9 L* Magnesium 2.3 Albumin Blood Type A POSITIVE Antibody Screen NEGATIVE 07/22/17 07/22/17 07/22/17 04:04 05:45 08:56 WBC RBC Hgb Hct MCV MCH MCHC RDW Plt Count Seg Neutrophils % Lymphocytes % Monocytes % Eosinophils % Basophils % Absolute Neutrophils Absolute Lymphocytes Absolute Monocytes Absolute Eosinophils Absolute Basophils Carbonic Acid 1.85 H HCO3/H2CO3 Ratio 11:1 ABG pH 7.14 L* ABG pCO2 61.4 H ABG pO2 98.0 ABG HCO3 20.6 ABG O2 Saturation 95.2 ABG Base Excess -8.6 FiO2 80% Sodium Potassium Chloride Carbon Dioxide Anion Gap BUN Creatinine Est GFR ( Amer) Est GFR (Non-Af Amer) Glucose Lactic Acid 1.8 Calcium Magnesium Albumin 2.2 L Blood Type Antibody Screen 07/20/17 10:30 Tracheal Aspirate Gram Stain - Final 07/20/17 10:30 Tracheal Aspirate Sputum Culture - Final C.albicans/C.dubliniensis Greatly Reduced Normal Ania 07/20/17 08:38 Catheterized Urine Urine Culture - Final NO GROWTH 2 DAYS 07/16/17 23:52 Blood Blood Culture - Final NO GROWTH IN 5 DAYS 07/20/17 03:53 NT-Pro-B Natriuret Pep 1580 H EKG Comments: Sinus tachycardia with acute ST elevation anterior precordial lead consistent with acute anterior myocardial infarction Impressions: Chest/Abdomen CTA 07/17/17 00:00 IMPRESSION: 1. There is no evidence of pulmonary emboli. 2. Extensive ground-glass opacification is present in the lungs suggestive of chronic interstitial disease, interstitial edema, atypical pneumonia. This is a relatively nonspecific finding. This has advanced significantly since 2017, however. 3. There are sclerotic lesions in multiple bones concerning for metastases. Does patient have a known neoplasm? Abdomen/Pelvis CT 07/22/17 00:00 IMPRESSION: 1. Nonfocal mesenteric fat stranding without defined nidus of infection. Findings may represent positive fluid balance. 2. Bibasilar pulmonary consolidation with small bilateral pleural effusions. Findings likewise may represent infectious versus pulmonary edema. Chest X-Ray 07/22/17 06:00 IMPRESSION: 1. No significant interval change. Assessment & Plan - Diagnosis (1) Acute anterior wall RI Is this a current diagnosis for this admission?: Yes (2) Acute hypoxemic respiratory failure Is this a current diagnosis for this admission?: Yes (3) Acute renal failure Qualifiers: Acute renal failure type: with acute tubular necrosis Qualified Code(s): N17.0 - Acute kidney failure with tubular necrosis Is this a current diagnosis for this admission?: Yes (4) Pancytopenia Is this a current diagnosis for this admission?: Yes (5) Pneumonia Qualifiers: Pneumonia type: due to unspecified organism Laterality: bilateral Lung location: unspecified part of lung Qualified Code(s): J18.9 - Pneumonia, unspecified organism Is this a current diagnosis for this admission?: Yes - Notes Notes: I was consulted today after patient was noted on EKG to have acute ST elevation. I responded within 5 minutes. Evaluated safe situation. It was felt that the situation was grave. Patient's platelet count was only 15,000. There is some concern about internal bleed. It was felt that thrombolytics will be contraindicated. Patient was noted to be already hypotensive on 2 vasopressors even prior to detection of anterior RI. Patient also in acute renal failure with negligible urine output over the last 24 hours. Patient felt to have bilateral pneumonia. Possible septic shock as well as now cardiogenic element to it. It was felt that the best option would be transferred to tertiary care but family did not want patient to be transferred. It seems only option was medical management and left the anterior RI healed by itself but it was felt that patient would just not do well in spite of best efforts. I did give verbal order amiodarone bolus and drip protocol. Discussed with Dr. Arteaga. I also talked with the patient's family at that time they have wanted DNR status to be maintained but without any escalation of any other therapeutic measures. They are waiting for family members from out of town to come to town. Addendum: After about 10-15 minutes late after my initial evaluation, I was called by Dr. Arteaga, who informed me that patient family has decided that patient to be just comfort care and they wanted to withdraw life support. Afterwards I learned from the nurse that the patient had within 10 minutes of drying life support.
--- NOTE | 2017-07-22 23:08 | EKG REPORT ---
SEVERITY:- ABNORMAL ECG - SINUS TACHYCARDIA INFERIOR INFARCT, AGE INDETERMINATE ANTERIOR INJURY, EARLY ACUTE INFARCT BORDERLINE PROLONGED QT INTERVAL : Confirmed by: Adam Redding 22-Jul-2017 23:07:47
== END 2017-07-22 14:00 | DRG 208 ==
LOC: ER 21:03 → EH 23:31 → 3S 07-17 03:15 → ICU 07-17 17:33
PROVIDERS: ADMIT Family Medicine; ATTEND Family Medicine
PROC: 5A1945Z Respiratory Ventilation, 24-96 Consecutive Hours (ICD-10-PCS; principal; 2017-07-20)
PROC: 0BH17EZ Insertion of Endotracheal Airway into Trachea, Via Natural or Artificial Opening (ICD-10-PCS; 2017-07-20)
PROC: 30233N1 Transfusion of Nonautologous Red Blood Cells into Peripheral Vein, Percutaneous Approach (ICD-10-PCS; 2017-07-21)
PROC: 30233R1 Transfusion of Nonautologous Platelets into Peripheral Vein, Percutaneous Approach (ICD-10-PCS; 2017-07-22)
DX: J14 Pneumonia due to Hemophilus influenzae (principal); A41.9 Sepsis, unspecified organism; N17.0 Acute kidney failure with tubular necrosis; R65.21 Severe sepsis with septic shock; I21.19 ST elevation (STEMI) myocardial infarction involving other coronary artery of inferior wall; D61.810 Antineoplastic chemotherapy induced pancytopenia; C79.51 Secondary malignant neoplasm of bone; J80 Acute respiratory distress syndrome; Z66 Do not resuscitate; J44.9 Chronic obstructive pulmonary disease, unspecified; D64.9 Anemia, unspecified; C61 Malignant neoplasm of prostate; F41.9 Anxiety disorder, unspecified; T45.1X5A Adverse effect of antineoplastic and immunosuppressive drugs, initial encounter; Z87.891 Personal history of nicotine dependence; Z79.82 Long term (current) use of aspirin; Z79.899 Other long term (current) drug therapy
CPT/HCPCS: 31500; 36415; 36430; 36600; 71045; 71275; 74176; 80048; 80053; 80202; 81001; 82040; 82803; 83605; 83735; 83880; 84100; 85025; 85384; 85610; 85730; 86850; 86900; 86901; 86920; 87040; 87070; 87077; 87086; 87205; 93005; 93010; 93306; 94002; 94003; 94640; 94660; 96361; 96365; 96375; 99285; J0330; J0692; J1200; J1940; J1956; J2060; J2250; J2270; J2370; J2405; J2543; J2704; J3370; J3490; J7030; J7040; J7060; J7620; P9016; P9035; S0028